=== PATIENT | male | born 1950 | race Caucasian/White ===

== ENCOUNTER 2022-03-30 12:46 | Inpatient (IN) | payer MEDICARE ==
[2022-03-31 09:50] LABS: Basophils # (Auto) 0.1 K/mm3 (0.0-0.1); Basophils % (Auto) 0.6 % (0.0-1.8); Eosinophils # (Auto) 0.1 K/mm3 (0.0-0.4); Eosinophils % (Auto) 1.5 % (0.0-4.3); Hematocrit 47.8 % (35.5-45.6); Hemoglobin 15.9 gm/dl (11.8-15.2); Lymphocytes # (Auto) 1.9 K/mm3 (1.2-5.4); Lymphocytes % (Auto) 22.6 % (13.4-35.0); Mean Corpuscular HGB Conc 33 % (32-34); Mean Corpuscular Volume 92 fl (84-94); Monocytes # (Auto) 0.6 K/mm3 (0.0-0.8); Monocytes % (Auto) 6.5 % (0.0-7.3); Platelet Count 347 K/mm3 (140-440); Red Blood Count 5.22 M/mm3 (3.65-5.03); Red Cell Distribution Width 15.6 % (13.2-15.2)
[2022-03-31 10:14] LABS: Alanine Aminotransferase 23 units/L (7-56); Albumin 4.5 g/dL (3.9-5); BUN/Creatinine Ratio 20; Blood Urea Nitrogen 20 mg/dL (9-20); Calcium 9.6 mg/dL (8.4-10.2); Chol/HDL Ratio 3.76 %; HDL Cholesterol 38 mg/dL (40-59); Hemolysis Index 10; LDL Cholesterol,Direct 83 mg/dL (50-130)
--- NOTE | 2022-03-31 11:17 | Consultation ---
History of Present Illness - Reason for Consult Consult date: 03/31/22 Medical Management Requesting physician: JUDI BURTON - History of Present Illness 72 YO Male with Vascular Dementia with Behavioral Disturbance, Cerebral Atherosclerosis, Bipolar Disorder, HTN, DM, BPH, Mild Intermittent Asthma, Schizophrenia, PTSD admitted to [facility] for psychiatric stabilization. Consult placed by Dr. Burton for medical management. Pt seen and evaluated in the recreation room. Patient denies fever, chills, chest pain, palpitation, productive cough, skin rash, recent ill contacts, or known exposure to COVID-19. No reported nursing events. Patient appears to be at baseline level of cognition and function. Past History Past Medical History: diabetes, hypertension Past Surgical History: No surgical history, Other (Reviewed) Social history: single. denies: smoking, alcohol abuse, prescription drug abuse Family history: diabetes, hypertension Medications and Allergies Allergies Allergy/AdvReac Type Severity Reaction Status Date / Time No Known Allergies Allergy Unverified 03/30/22 13:15 Home Medications Medication Instructions Recorded Confirmed Last Taken Type Cholecalciferol Vit D3 [Vitamin D3 1,000 unit PO QDAY 03/30/22 03/30/22 Unknown History 1,000 UNIT TAB] Cyanocobalamin [Vitamin B-12] 500 mcg PO DAILY 03/30/22 03/30/22 Unknown History Dapagliflozin Propanediol [Farxiga] 5 mg PO DAILY 03/30/22 03/30/22 Unknown History Divalproex Sodium [Depakote] 500 mg PO BID 03/30/22 03/30/22 Unknown History Melatonin [Melatonin 10MG TAB] 10 mg PO QHS 03/30/22 03/30/22 Unknown History Mirtazapine [Remeron 15mg TAB] 15 mg PO QHS 03/30/22 03/30/22 Unknown History Multivit-Min/Iron Fum/Folic AC 1 each PO DAILY 03/30/22 03/30/22 Unknown History [Lcayw-Vcoaqpu-Zqookmeo Tablet] Paliperidone Palmitate [Invega 156 mg IM QMONTH 03/30/22 03/30/22 Unknown History Sustenna] Paliperidone [Invega] 6 mg PO DAILY 03/30/22 03/30/22 Unknown History ProAir HFA Inhaler 90 mcg INHALATION Q8HR PRN 03/30/22 03/30/22 Unknown History Tamsulosin [Flomax] 0.4 mg PO QDAY 03/30/22 03/30/22 Unknown History lisinopriL [Lisinopril] 10 mg PO DAILY 03/30/22 03/30/22 Unknown History Review of Systems Constitutional: no weight loss, no weight gain, no fever, no chills Ears, nose, mouth and throat: no ear pain, no ear discharge, no tinnitis, no nasal discharge Cardiovascular: no chest pain, no orthopnea, no rapid/irregular heart beat Respiratory: no excessive sputum, no hemoptysis, no shortness of breath, no dyspnea on exertion Gastrointestinal: no nausea, no diarrhea, no constipation Genitourinary Male: no hematuria, no flank pain, no urinary frequency, no urinary hesitancy Rectal: no pain, no incontinence, no bleeding Musculoskeletal: no neck stiffness, no arm numbness/tingling, no shooting leg pain Integumentary: no rash, no redness, no jaundice Neurological: no head injury, no paralysis, no parathesias, no numbness, no seizures, no syncope Psychiatric: sleep disturbances, irritability, mood swings Endocrine: no cold intolerance, no polyphagia, no excessive thirst, no polyuria Hematologic/Lymphatic: no easy bruising, no lymphedema Allergic/Immunologic: no urticaria, no allergic rhinitis, no persistent infections Exam - Constitutional Vitals: Temp Pulse Resp BP Pulse Ox 97.9 F 84 16 113/80 95 03/31/22 10:00 03/31/22 10:00 03/31/22 10:00 03/31/22 10:00 03/31/22 10:00 General appearance: Present: obese - EENT Eyes: Present: PERRL ENT: hearing intact, clear oral mucosa - Neck Neck: Present: supple, normal ROM - Respiratory Respiratory effort: normal Respiratory: bilateral: CTA - Cardiovascular Heart Sounds: Present: S1 & S2. Absent: rub, click - Extremities Extremities: pulses symmetrical, No edema Peripheral Pulses: within normal limits - Abdominal General gastrointestinal: Present: soft, non-tender, non-distended, normal bowel sounds Male genitourinary: Present: normal - Integumentary Integumentary: Present: clear, warm, dry - Musculoskeletal Musculoskeletal: gait normal, strength equal bilaterally - Psychiatric Psychiatric: appropriate mood/affect, intact judgment & insight - Neurologic Neurologic: CNII-XII intact, moves all extremities Results - Labs CBC & Chem 7: 03/30/22 Unknown 03/30/22 Unknown Labs: Abnormal lab results 03/30/22 03/30/22 03/30/22 Range/Units 19:27 Unknown Unknown RBC 5.22 H (3.65-5.03) M/mm3 Hgb 15.9 H (11.8-15.2) gm/dl Hct 47.8 H (35.5-45.6) % RDW 15.6 H (13.2-15.2) % Glucose 302 H (75-100) mg/dL POC Glucose 229 H (70-105) mg/dL Hemoglobin A1c (4-6) % Triglycerides 204 H (2-149) mg/dL HDL Cholesterol 38 L (40-59) mg/dL 03/30/22 03/31/22 Range/Units Unknown 07:31 RBC (3.65-5.03) M/mm3 Hgb (11.8-15.2) gm/dl Hct (35.5-45.6) % RDW (13.2-15.2) % Glucose (75-100) mg/dL POC Glucose 155 H (70-105) mg/dL Hemoglobin A1c 7.8 H (4-6) % Triglycerides (2-149) mg/dL HDL Cholesterol (40-59) mg/dL Assessment and Plan - Patient Problems (1) Vascular dementia with behavioral disturbance Current Visit: Yes Status: Acute Plan to address problem: Verbal for prompting verbal redirection, benzodiazepine therapy as clinically indicated (2) Cerebral atherosclerosis Current Visit: Yes Status: Acute Plan to address problem: Risk factor reduction, antiplatelet therapy as clinically indicated (3) Hypertension Current Visit: Yes Status: Acute Qualifiers: Hypertension type: primary hypertension Qualified Code(s): I10 - Essential (primary) hypertension Plan to address problem: Monitor blood pressure every shift, continue medical management (4) Diabetes Current Visit: Yes Status: Acute Plan to address problem: Consistent carbohydrate diet, Accu-Chek, insulin protocol, hypoglycemia protocol. (5) BPH (benign prostatic hyperplasia) Current Visit: Yes Status: Acute Plan to address problem: Continue medical management, supportive care. Outpatient urology follow-up. (6) Asthma Current Visit: Yes Status: Acute Qualifiers: Asthma severity: mild Asthma persistence: intermittent Plan to address problem: Bronchodilator therapy as clinically indicated, supportive care. (7) PTSD (post-traumatic stress disorder) Current Visit: Yes Status: Acute Plan to address problem: Continue medical management, supportive care. (8) Schizophrenia Current Visit: Yes Status: Acute Plan to address problem: Continue medical management, supportive care. (9) Bipolar disorder Current Visit: Yes Status: Acute Plan to address problem: Cognitive behavioral therapy, continue medical management, supportive care. (10) Preventative health care Current Visit: Yes Status: Acute Plan to address problem: Patient counseled regarding risk factor reduction, increase physical activity discharge, +30 minutes. (11) Advance care planning Current Visit: Yes Status: Acute Plan to address problem: Disease education conducted, care plan discussed, diagnoses discussed, prognosis discussed. Patient acknowledges understanding and agreement with care plan, +30 minutes.
--- NOTE | 2022-03-31 11:21 | History and Physical Report ---
GP History & Physical - History of Present Illness Date of admission: 03/30/22 Date of Examination: 03/31/22 Reason for Admission: Danger to self, Failure of Outpatient Treatment, Severe anxiety/depression History of Present Illness: The patient was seen today. He was admitted to [facility] [place] after becoming angry about tea. During my evaluation of the patient he is calm and cooperative. He is a/o x 3. When asking the patient about why he was admitted, he says "they gave me tea without sugar, and gave me hot water to take my pills." He says "I became upset and started yelling." He denies trying to hurt anyone. The patient also denies suicidal thoughts. He could not recall any medication that he's on. He says "I take a lot of meds." PAST PSYCHIATRIC HISTORY: Diagnoses: Bipolar Disorder Suicide attempts or Self-harm behavior: Denies Prior psychiatric hospitalizations: Denies Substance Abuse history: Denies Previous psychiatric medications tried: Could not recall Outpatient treatment: Denies PAST MEDICAL HISTORY: HTN, DM Family Psychiatric History: None reported or documented SOCIAL HISTORY Marital Status: Living Arrangements: senior care Employment Status: Retired Access to guns/weapons: Denies Education: History of Abuse:Denies Legal History: Denies REVIEW OF SYSTEMS Constitutional: Negative for weight loss ENT: Negative for stridor Respiratory: Negative for cough or hemoptysis All other systems reviewed and are negative MENTAL STATUS EXAMINATION General Appearance and Behavior: Age appropriate, wearing appropriate clothes, cooperative, polite with questioning, good eye contact Cooperation: cooperative Psychomotor Behavior: Psychomotor normal Mood: okay Affect and affective range: congruent with stated affect Thought Process: goal directed Thought Content: None Speech: Normal volume, Regular rate and rhythm Suicidal Ideation: Denies Homicidal Ideation: Denies Hallucination: Denies Delusions: None elicited Impulse Control: Limited Insight and Judgment: Limited Memory: Intact Attention: attentive Orientation: Alert and oriented Diagnoses: Bipolar Disorder Treatment Plan Patient admitted for inpatient psychiatric evaluation, medication adjustment and close monitoring The patient's behavior, mood, sleep and appetite will be closely monitored. Patient enrolled in individual and group therapeutic sessions and encouraged to attend. Patient provided with a safe and structured environment. Patient's physical health needs will be addressed by the Hospitalist. Hospitalist Consulted Labs including CBC, CMP, Lipid profile and Hemoglobin A1C levels ordered for baseline reference Social Assessment will be completed and the Postal Service Window Clerk will work with patient and family to ensure a suitable and safe disposition Medication adjustment will be made as clinically indicated Restarted home meds Usual Wellness Sikh/Preservation The patient agreed on the treatment plan, understood the risk, benefit, alternative treatment, potential consequence of no treatment, and gave informed consent. Estimated days: 7 Post hospital care: primary care provider, psychiatric provider Case staffed with Dr. Butler Legal Status: Voluntary Reaction to Hospitalization: Accepting Medications and Allergies Allergies Allergy/AdvReac Type Severity Reaction Status Date / Time No Known Allergies Allergy Unverified 03/30/22 13:15 Home Medications Medication Instructions Recorded Confirmed Last Taken Type Cholecalciferol Vit D3 [Vitamin D3 1,000 unit PO QDAY 03/30/22 03/30/22 Unknown History 1,000 UNIT TAB] Cyanocobalamin [Vitamin B-12] 500 mcg PO DAILY 03/30/22 03/30/22 Unknown History Dapagliflozin Propanediol [Farxiga] 5 mg PO DAILY 03/30/22 03/30/22 Unknown History Divalproex Sodium [Depakote] 500 mg PO BID 03/30/22 03/30/22 Unknown History Melatonin [Melatonin 10MG TAB] 10 mg PO QHS 03/30/22 03/30/22 Unknown History Mirtazapine [Remeron 15mg TAB] 15 mg PO QHS 03/30/22 03/30/22 Unknown History Multivit-Min/Iron Fum/Folic AC 1 each PO DAILY 03/30/22 03/30/22 Unknown History [Zeyso-Ibhngaw-Zamkrohy Tablet] Paliperidone Palmitate [Invega 156 mg IM QMONTH 03/30/22 03/30/22 Unknown History Sustenna] Paliperidone [Invega] 6 mg PO DAILY 03/30/22 03/30/22 Unknown History ProAir HFA Inhaler 90 mcg INHALATION Q8HR PRN 03/30/22 03/30/22 Unknown History Tamsulosin [Flomax] 0.4 mg PO QDAY 03/30/22 03/30/22 Unknown History lisinopriL [Lisinopril] 10 mg PO DAILY 03/30/22 03/30/22 Unknown History Results - Results Labs/Vitals: Laboratory Last Values WBC 8.6 K/mm3 (4.5-11.0) 03/30/22 Unknown RBC 5.22 M/mm3 (3.65-5.03) H 03/30/22 Unknown Hgb 15.9 gm/dl (11.8-15.2) H 03/30/22 Unknown Hct 47.8 % (35.5-45.6) H 03/30/22 Unknown MCV 92 fl (84-94) 03/30/22 Unknown MCH 30 pg (28-32) 03/30/22 Unknown MCHC 33 % (32-34) 03/30/22 Unknown RDW 15.6 % (13.2-15.2) H 03/30/22 Unknown Plt Count 347 K/mm3 (140-440) 03/30/22 Unknown Lymph % (Auto) 22.6 % (13.4-35.0) 03/30/22 Unknown Wolfe % (Auto) 6.5 % (0.0-7.3) 03/30/22 Unknown Eos % (Auto) 1.5 % (0.0-4.3) 03/30/22 Unknown Baso % (Auto) 0.6 % (0.0-1.8) 03/30/22 Unknown Lymph # (Auto) 1.9 K/mm3 (1.2-5.4) 03/30/22 Unknown Wolfe # (Auto) 0.6 K/mm3 (0.0-0.8) 03/30/22 Unknown Eos # (Auto) 0.1 K/mm3 (0.0-0.4) 03/30/22 Unknown Baso # (Auto) 0.1 K/mm3 (0.0-0.1) 03/30/22 Unknown Seg Neutrophils % 68.8 % (40.0-70.0) 03/30/22 Unknown Seg Neutrophils # 5.9 K/mm3 (1.8-7.7) 03/30/22 Unknown Sodium 137 mmol/L (137-145) 03/30/22 Unknown Potassium 4.7 mmol/L (3.6-5.0) 03/30/22 Unknown Chloride 99.5 mmol/L (98-107) 03/30/22 Unknown Carbon Dioxide 23 mmol/L (22-30) 03/30/22 Unknown Anion Gap 19 mmol/L 03/30/22 Unknown BUN 20 mg/dL (9-20) 03/30/22 Unknown Creatinine 1.0 mg/dL (0.8-1.3) 03/30/22 Unknown Estimated GFR > 60 ml/min 03/30/22 Unknown BUN/Creatinine Ratio 20 % 03/30/22 Unknown Glucose 302 mg/dL (75-100) H 03/30/22 Unknown POC Glucose 155 mg/dL (70-105) H 03/31/22 07:31 Hemoglobin A1c 7.8 % (4-6) H 03/30/22 Unknown Calcium 9.6 mg/dL (8.4-10.2) 03/30/22 Unknown Total Bilirubin 0.40 mg/dL (0.1-1.2) 03/30/22 Unknown AST 18 units/L (5-40) 03/30/22 Unknown ALT 23 units/L (7-56) 03/30/22 Unknown Alkaline Phosphatase 117 units/L (35-129) 03/30/22 Unknown Total Protein 7.4 g/dL (6.3-8.2) 03/30/22 Unknown Albumin 4.5 g/dL (3.9-5) 03/30/22 Unknown Albumin/Globulin Ratio 1.6 % 03/30/22 Unknown Triglycerides 204 mg/dL (2-149) H 03/30/22 Unknown Cholesterol 143 mg/dL (50-199) 03/30/22 Unknown LDL Cholesterol Direct 83 mg/dL (50-130) 03/30/22 Unknown HDL Cholesterol 38 mg/dL (40-59) L 03/30/22 Unknown Cholesterol/HDL Ratio 3.76 % 03/30/22 Unknown TSH 1.930 mlU/mL (0.270-4.200) 03/30/22 Unknown Last Vital Signs Temp 97.9 F 03/31/22 10:00 Pulse 84 03/31/22 10:00 Resp 16 03/31/22 10:00 BP 113/80 03/31/22 10:00 Pulse Ox 95 03/31/22 10:00 Physical Examination - Constitutional Vitals: Vital Signs Temp Pulse Resp BP Pulse Ox 97.9 F 84 16 113/80 95 03/31/22 10:00 03/31/22 10:00 03/31/22 10:00 03/31/22 10:00 03/31/22 10:00 Temperature -Last 24 Hours Temperature 97.9 F Temperature 98.7 F Temperature 98.7 F Temperature 97.9 F Mental Status Exam - Vital signs Last Vital Signs Temp 97.9 F 03/31/22 10:00 Pulse 84 03/31/22 10:00 Resp 16 03/31/22 10:00 BP 113/80 03/31/22 10:00 Pulse Ox 95 03/31/22 10:00 Physician Certification - Certification Statement Physician Certification Statement: This is an acknowledgement statement that ESSIE WARREN is a 72 year old M who requires inpatient psychiatric admission for treatment which could reasonably be expected to improve the patient's condition for Estimated period of time patient will need to remain in the hospital: [ ] Plan for post-hospital care: [ ]
[2022-03-31] MEDS ORDERED: PROAIR INHALATION PRN (11:25)
[2022-03-31] MEDS ORDERED: PALIPERIDONE 6 MG PO SCH (11:30)
[2022-03-31] MEDS ORDERED: ALBUTEROL 2.5 MG/3 ML NEBU IH PRN (11:40)
[2022-03-31] MEDS: LISINOPRIL 10 MG TAB PO SCH (13:52)
[2022-03-31] MEDS: TAMSULOSIN 0.4 MG CAP PO SCH (13:52)
[2022-03-31] MEDS: CHOLECALCIFEROL (VIT D3) 1000 UNIT (25 mcg) TAB PO SCH (13:53)
[2022-03-31] MEDS: MIRTAZAPINE 15 MG TAB PO SCH (21:13)
[2022-03-31] MEDS: MELATONIN 5 MG TAB PO SCH (21:14)
[2022-03-31] MEDS: DIVALPROEX DR 500 MG TAB PO SCH (21:14)
[2022-03-31] MEDS ORDERED: NON-FORMULARY EACH (Melatonin [Melatonin 10mg Tab] 10 MG Tablet) PO SCH (22:00)
--- NOTE | 2022-04-01 09:15 | Progress Note ---
Subjective Date of service: 04/01/22 Principal diagnosis: Bipolar Disorder Subjective Comment: The patient was seen today. He is sitting in the dayroom. He is calm and cooperative. He is pleasant. He says he feels calm and relaxed. The patient says he slept well and his appetite is good. He denies SI/HI or hallucinations of any kind. REVIEW OF SYSTEMS Constitutional: Negative for weight loss ENT: Negative for stridor Respiratory: Negative for cough or hemoptysis All other systems reviewed and are negative MENTAL STATUS EXAMINATION General Appearance and Behavior: Age appropriate, wearing appropriate clothes, cooperative, polite with questioning, good eye contact Cooperation: cooperative Psychomotor Behavior: Psychomotor normal Mood: okay Affect and affective range: congruent with stated affect Thought Process: goal directed Thought Content: None Speech: Normal volume, Regular rate and rhythm Suicidal Ideation: Denies Homicidal Ideation: Denies Hallucination: Denies Delusions: None elicited Impulse Control: Limited Insight and Judgment: Limited Memory: Intact Attention: attentive Orientation: Alert and oriented Diagnoses: Bipolar Disorder Treatment Plan Patient admitted for inpatient psychiatric evaluation, medication adjustment and close monitoring The patient's behavior, mood, sleep and appetite will be closely monitored. Patient enrolled in individual and group therapeutic sessions and encouraged to attend. Patient provided with a safe and structured environment. Patient's physical health needs will be addressed by the Hospitalist. Hospitalist Consulted Labs including CBC, CMP, Lipid profile and Hemoglobin A1C levels ordered for baseline reference Social Assessment will be completed and the Protection Manager will work with patient and family to ensure a suitable and safe disposition Medication adjustment will be made as clinically indicated Continue current regimen Usual Wellness Adventism/Preservation The patient agreed on the treatment plan, understood the risk, benefit, alternative treatment, potential consequence of no treatment, and gave informed consent. Estimated days: 7 Post hospital care: primary care provider, psychiatric provider Case staffed with Dr. Butler Medications and Allergies Allergies Allergy/AdvReac Type Severity Reaction Status Date / Time No Known Allergies Allergy Unverified 03/30/22 13:15 Home Medications Medication Instructions Recorded Confirmed Last Taken Type Cholecalciferol Vit D3 [Vitamin D3 1,000 unit PO QDAY 03/30/22 03/30/22 Unknown History 1,000 UNIT TAB] Cyanocobalamin [Vitamin B-12] 500 mcg PO DAILY 03/30/22 03/30/22 Unknown History Dapagliflozin Propanediol [Farxiga] 5 mg PO DAILY 03/30/22 03/30/22 Unknown History Divalproex Sodium [Depakote] 500 mg PO BID 03/30/22 03/30/22 Unknown History Melatonin [Melatonin 10MG TAB] 10 mg PO QHS 03/30/22 03/30/22 Unknown History Mirtazapine [Remeron 15mg TAB] 15 mg PO QHS 03/30/22 03/30/22 Unknown History Multivit-Min/Iron Fum/Folic AC 1 each PO DAILY 03/30/22 03/30/22 Unknown History [Kwsxs-Bubpetj-Gakjvkxh Tablet] Paliperidone Palmitate [Invega 156 mg IM QMONTH 03/30/22 03/30/22 Unknown History Sustenna] Paliperidone [Invega] 6 mg PO DAILY 03/30/22 03/30/22 Unknown History ProAir HFA Inhaler 90 mcg INHALATION Q8HR PRN 03/30/22 03/30/22 Unknown History Tamsulosin [Flomax] 0.4 mg PO QDAY 03/30/22 03/30/22 Unknown History lisinopriL [Lisinopril] 10 mg PO DAILY 03/30/22 03/30/22 Unknown History Active Meds: Active Medications Albuterol (Albuterol 2.5 Mg/3 Ml Nebu) 2.5 mg IH Q4HRT PRN PRN Reason: Shortness Of Breath Cholecalciferol (Cholecalciferol (Vit D3) 1000 Unit (25 Mcg) Tab) 1,000 unit PO QDAY [facility] Last Admin: 03/31/22 13:53 Dose: 1,000 unit Cyanocobalamin (Cyanocobalamin (Vit B-12) 1000 Mcg Tab) 500 mcg PO DAILY [facility] Divalproex Sodium (Divalproex Dr 500 Mg Tab) 500 mg PO BID [facility] Last Admin: 03/31/22 21:14 Dose: 500 mg Lisinopril (Lisinopril 10 Mg Tab) 10 mg PO DAILY [facility] Last Admin: 03/31/22 13:52 Dose: 10 mg Melatonin (Melatonin 5 Mg Tab) 10 mg PO QHS [facility] Last Admin: 03/31/22 21:14 Dose: 10 mg Mirtazapine (Mirtazapine 15 Mg Tab) 15 mg PO QHS [facility] Last Admin: 03/31/22 21:13 Dose: 15 mg Multivitamins/Minerals (Multivitamins,Ther W-Minerals Tab) 1 each PO QDAY [facility] Paliperidone (Paliperidone Er 3 Mg Tab) 6 mg PO QDAY [facility] Tamsulosin HCl (Tamsulosin 0.4 Mg Cap) 0.4 mg PO QDAY [facility] Last Admin: 03/31/22 13:52 Dose: 0.4 mg Results - Results Labs/Vitals: Laboratory Last Values WBC 8.6 K/mm3 (4.5-11.0) 03/30/22 Unknown RBC 5.22 M/mm3 (3.65-5.03) H 03/30/22 Unknown Hgb 15.9 gm/dl (11.8-15.2) H 03/30/22 Unknown Hct 47.8 % (35.5-45.6) H 03/30/22 Unknown MCV 92 fl (84-94) 03/30/22 Unknown MCH 30 pg (28-32) 03/30/22 Unknown MCHC 33 % (32-34) 03/30/22 Unknown RDW 15.6 % (13.2-15.2) H 03/30/22 Unknown Plt Count 347 K/mm3 (140-440) 03/30/22 Unknown Lymph % (Auto) 22.6 % (13.4-35.0) 03/30/22 Unknown Cass % (Auto) 6.5 % (0.0-7.3) 03/30/22 Unknown Eos % (Auto) 1.5 % (0.0-4.3) 03/30/22 Unknown Baso % (Auto) 0.6 % (0.0-1.8) 03/30/22 Unknown Lymph # (Auto) 1.9 K/mm3 (1.2-5.4) 03/30/22 Unknown Cass # (Auto) 0.6 K/mm3 (0.0-0.8) 03/30/22 Unknown Eos # (Auto) 0.1 K/mm3 (0.0-0.4) 03/30/22 Unknown Baso # (Auto) 0.1 K/mm3 (0.0-0.1) 03/30/22 Unknown Seg Neutrophils % 68.8 % (40.0-70.0) 03/30/22 Unknown Seg Neutrophils # 5.9 K/mm3 (1.8-7.7) 03/30/22 Unknown Sodium 137 mmol/L (137-145) 03/30/22 Unknown Potassium 4.7 mmol/L (3.6-5.0) 03/30/22 Unknown Chloride 99.5 mmol/L (98-107) 03/30/22 Unknown Carbon Dioxide 23 mmol/L (22-30) 03/30/22 Unknown Anion Gap 19 mmol/L 03/30/22 Unknown BUN 20 mg/dL (9-20) 03/30/22 Unknown Creatinine 1.0 mg/dL (0.8-1.3) 03/30/22 Unknown Estimated GFR > 60 ml/min 03/30/22 Unknown BUN/Creatinine Ratio 20 % 03/30/22 Unknown Glucose 302 mg/dL (75-100) H 03/30/22 Unknown POC Glucose 224 mg/dL (70-105) H 03/31/22 19:03 Hemoglobin A1c 7.8 % (4-6) H 03/30/22 Unknown Calcium 9.6 mg/dL (8.4-10.2) 03/30/22 Unknown Total Bilirubin 0.40 mg/dL (0.1-1.2) 03/30/22 Unknown AST 18 units/L (5-40) 03/30/22 Unknown ALT 23 units/L (7-56) 03/30/22 Unknown Alkaline Phosphatase 117 units/L (35-129) 03/30/22 Unknown Total Protein 7.4 g/dL (6.3-8.2) 03/30/22 Unknown Albumin 4.5 g/dL (3.9-5) 03/30/22 Unknown Albumin/Globulin Ratio 1.6 % 03/30/22 Unknown Triglycerides 204 mg/dL (2-149) H 03/30/22 Unknown Cholesterol 143 mg/dL (50-199) 03/30/22 Unknown LDL Cholesterol Direct 83 mg/dL (50-130) 03/30/22 Unknown HDL Cholesterol 38 mg/dL (40-59) L 03/30/22 Unknown Cholesterol/HDL Ratio 3.76 % 03/30/22 Unknown TSH 1.930 mlU/mL (0.270-4.200) 03/30/22 Unknown Last Vital Signs Temp 98.6 F 03/31/22 22:00 Pulse 85 08/31/22 22:00 Resp 18 03/31/22 22:00 BP 100/66 03/31/22 22:00 Pulse Ox 95 03/31/22 10:00
[2022-04-01] MEDS: PALIPERIDONE ER 3 MG TAB PO SCH (09:50)
[2022-04-01] MEDS: DIVALPROEX DR 500 MG TAB PO SCH ×2 (09:51→21:20)
[2022-04-01] MEDS: LISINOPRIL 10 MG TAB PO SCH (09:53)
[2022-04-01] MEDS: TAMSULOSIN 0.4 MG CAP PO SCH (09:53)
[2022-04-01] MEDS: CYANOCOBALAMIN (VIT B-12) 1000 MCG TAB PO SCH (09:54)
[2022-04-01] MEDS: CHOLECALCIFEROL (VIT D3) 1000 UNIT (25 mcg) TAB PO SCH (09:54)
[2022-04-01] MEDS: MULTIVITAMINS,THER W-MINERALS TAB PO SCH (09:55)
[2022-04-01] MEDS: MELATONIN 5 MG TAB PO SCH (21:20)
[2022-04-01] MEDS: MIRTAZAPINE 15 MG TAB PO SCH (21:20)
--- NOTE | 2022-04-02 08:25 | Progress Note ---
Subjective Date of service: 04/02/22 Principal diagnosis: Bipolar Disorder Subjective Comment: 04/02: The patient was seen today. He states he is doing alright. He reports sleep and appetite as good. He denies depression " I feel good." He denies SI/HI and hallucinations. 04/01: The patient was seen today. He is sitting in the dayroom. He is calm and cooperative. He is pleasant. He says he feels calm and relaxed. The patient says he slept well and his appetite is good. He denies SI/HI or hallucinations of any kind. REVIEW OF SYSTEMS Constitutional: Negative for weight loss ENT: Negative for stridor Respiratory: Negative for cough or hemoptysis All other systems reviewed and are negative MENTAL STATUS EXAMINATION General Appearance and Behavior: Age appropriate, wearing appropriate clothes, cooperative, polite with questioning, good eye contact Cooperation: cooperative Psychomotor Behavior: Psychomotor normal Mood: "alright" Affect and affective range: congruent with stated affect Thought Process: goal directed Thought Content: reality oriented Speech: Normal volume, Regular rate and rhythm Suicidal Ideation: Denies Homicidal Ideation: Denies Hallucination: Denies Delusions: None elicited Impulse Control: Limited Insight and Judgment: Limited Memory: Intact Attention: attentive Orientation: Alert and oriented Diagnoses: Bipolar Disorder Treatment Plan Patient admitted for inpatient psychiatric evaluation, medication adjustment and close monitoring The patient's behavior, mood, sleep and appetite will be closely monitored. Patient enrolled in individual and group therapeutic sessions and encouraged to attend. Patient provided with a safe and structured environment. Patient's physical health needs will be addressed by the Hospitalist. Hospitalist Consulted Labs including CBC, CMP, Lipid profile and Hemoglobin A1C levels ordered for baseline reference Social Assessment will be completed and the [employer] will work with patient and family to ensure a suitable and safe disposition Medication adjustment will be made as clinically indicated Continue current regimen Usual Wellness Christianity/Preservation The patient agreed on the treatment plan, understood the risk, benefit, alternative treatment, potential consequence of no treatment, and gave informed consent. Estimated days: 7 Post hospital care: primary care provider, psychiatric provider Case staffed with Dr. Butler Medications and Allergies Medications and Allergies Allergies Allergy/AdvReac Type Severity Reaction Status Date / Time No Known Allergies Allergy Unverified 03/30/22 13:15 Home Medications Medication Instructions Recorded Confirmed Last Taken Type Cholecalciferol Vit D3 [Vitamin D3 1,000 unit PO QDAY 03/30/22 03/30/22 Unknown History 1,000 UNIT TAB] Cyanocobalamin [Vitamin B-12] 500 mcg PO DAILY 03/30/22 03/30/22 Unknown History Dapagliflozin Propanediol [Farxiga] 5 mg PO DAILY 03/30/22 03/30/22 Unknown History Divalproex Sodium [Depakote] 500 mg PO BID 03/30/22 03/30/22 Unknown History Melatonin [Melatonin 10MG TAB] 10 mg PO QHS 03/30/22 03/30/22 Unknown History Mirtazapine [Remeron 15mg TAB] 15 mg PO QHS 03/30/22 03/30/22 Unknown History Multivit-Min/Iron Fum/Folic AC 1 each PO DAILY 03/30/22 03/30/22 Unknown History [[id number]-Mvxsnptv Tablet] Paliperidone Palmitate [Invega 156 mg IM QMONTH 03/30/22 03/30/22 Unknown His tory Sustenna] Paliperidone [Invega] 6 mg PO DAILY 03/30/22 03/30/22 Unknown History ProAir HFA Inhaler 90 mcg INHALATION Q8HR PRN 03/30/22 03/30/22 Unknown History Tamsulosin [Flomax] 0.4 mg PO QDAY 03/30/22 03/30/22 Unknown History lisinopriL [Lisinopril] 10 mg PO DAILY 03/30/22 03/30/22 Unknown History Active Meds: Active Medications Albuterol (Albuterol 2.5 Mg/3 Ml Nebu) 2.5 mg IH Q4HRT PRN PRN Reason: Shortness Of Breath Cholecalciferol (Cholecalciferol (Vit D3) 1000 Unit (25 Mcg) Tab) 1,000 unit PO QDAY [facility] Last Admin: 04/01/22 09:54 Dose: 1,000 unit Cyanocobalamin (Cyanocobalamin (Vit B-12) 1000 Mcg Tab) 500 mcg PO DAILY [facility] Last Admin: 04/01/22 09:54 Dose: 500 mcg Divalproex Sodium (Divalproex Dr 500 Mg Tab) 500 mg PO BID [facility] Last Admin: 04/01/22 21:20 Dose: 500 mg Lisinopril (Lisinopril 10 Mg Tab) 10 mg PO DAILY [facility] Last Admin: 04/01/22 09:53 Dose: Not Given Melatonin (Melatonin 5 Mg Tab) 10 mg PO QHS [facility] Last Admin: 04/01/22 21:20 Dose: 10 mg Mirtazapine (Mirtazapine 15 Mg Tab) 15 mg PO QHS [facility] Last Admin: 04/01/22 21:20 Dose: 15 mg Multivitamins/Minerals (Multivitamins,Ther W-Minerals Tab) 1 each PO QDAY [facility] Last Admin: 04/01/22 09:55 Dose: 1 each Paliperidone (Paliperidone Er 3 Mg Tab) 6 mg PO QDAY [facility] Last Admin: 04/01/22 09:50 Dose: 6 mg Tamsulosin HCl (Tamsulosin 0.4 Mg Cap) 0.4 mg PO QDAY [facility] Last Admin: 04/01/22 09:53 Dose: 0.4 mg Results - Results Labs/Vitals: Laboratory Last Values WBC 8.6 K/mm3 (4.5-11.0) 03/30/22 Unknown RBC 5.22 M/mm3 (3.65-5.03) H 03/30/22 Unknown Hgb 15.9 gm/dl (11.8-15.2) H 03/30/22 Unknown Hct 47.8 % (35.5-45.6) H 03/30/22 Unknown MCV 92 fl (84-94) 03/30/22 Unknown MCH 30 pg (28-32) 03/30/22 Unknown MCHC 33 % (32-34) 03/30/22 Unknown RDW 15.6 % (13.2-15.2) H 03/30/22 Unknown Plt Count 347 K/mm3 (140-440) 03/30/22 Unknown Lymph % (Auto) 22.6 % (13.4-35.0) 03/30/22 Unknown [place] % (Auto) 6.5 % (0.0-7.3) 03/30/22 Unknown Eos % (Auto) 1.5 % (0.0-4.3) 03/30/22 Unknown Baso % (Auto) 0.6 % (0.0-1.8) 03/30/22 Unknown Lymph # (Auto) 1.9 K/mm3 (1.2-5.4) 03/30/22 Unknown [place] # (Auto) 0.6 K/mm3 (0.0-0.8) 03/30/22 Unknown Eos # (Auto) 0.1 K/mm3 (0.0-0.4) 03/30/22 Unknown Baso # (Auto) 0.1 K/mm3 (0.0-0.1) 03/30/22 Unknown Seg Neutrophils % 68.8 % (40.0-70.0) 03/30/22 Unknown Seg Neutrophils # 5.9 K/mm3 (1.8-7.7) 03/30/22 Unknown Sodium 137 mmol/L (137-145) 03/30/22 Unknown Potassium 4.7 mmol/L (3.6-5.0) 03/30/22 Unknown Chloride 99.5 mmol/L (98-107) 03/30/22 Unknown Carbon Dioxide 23 mmol/L (22-30) 03/30/22 Unknown Anion Gap 19 mmol/L 03/30/22 Unknown BUN 20 mg/dL (9-20) 03/30/22 Unknown Creatinine 1.0 mg/dL (0.8-1.3) 03/30/22 Unknown Estimated GFR > 60 ml/min 03/30/22 Unknown BUN/Creatinine Ratio 20 % 03/30/22 Unknown Glucose 302 mg/dL (75-100) H 03/30/22 Unknown POC Glucose 217 mg/dL (70-105) H 04/01/22 19:44 Hemoglobin A1c 7.8 % (4-6) H 03/30/22 Unknown Calcium 9.6 mg/dL (8.4-10.2) 03/30/22 Unknown Total Bilirubin 0.40 mg/dL (0.1-1.2) 03/30/22 Unknown AST 18 units/L (5-40) 03/30/22 Unknown ALT 23 units/L (7-56) 03/30/22 Unknown Alkaline Phosphatase 117 units/L (35-129) 03/30/22 Unknown Total Protein 7.4 g/dL (6.3-8.2) 03/30/22 Unknown Albumin 4.5 g/dL (3.9-5) 03/30/22 Unknown Albumin/Globulin Ratio 1.6 % 03/30/22 Unknown Triglycerides 204 mg/dL (2-149) H 03/30/22 Unknown Cholesterol 143 mg/dL (50-199) 03/30/22 Unknown LDL Cholesterol Direct 83 mg/dL (50-130) 03/30/22 Unknown HDL Cholesterol 38 mg/dL (40-59) L 03/30/22 Unknown Cholesterol/HDL Ratio 3.76 % 03/30/22 Unknown TSH 1.930 mlU/mL (0.270-4.200) 03/30/22 Unknown Last Vital Signs Temp 97.7 F 04/01/22 22:00 Pulse 74 04/01/22 22:00 Resp 18 04/01/22 22:00 BP 103/62 04/01/22 22:00 Pulse Ox 95 04/01/22 22:00
[2022-04-02] MEDS: CHOLECALCIFEROL (VIT D3) 1000 UNIT (25 mcg) TAB PO SCH (12:00)
[2022-04-02] MEDS: TAMSULOSIN 0.4 MG CAP PO SCH (12:00)
[2022-04-02] MEDS: CYANOCOBALAMIN (VIT B-12) 1000 MCG TAB PO SCH (12:01)
[2022-04-02] MEDS: MULTIVITAMINS,THER W-MINERALS TAB PO SCH (12:01)
[2022-04-02] MEDS: DIVALPROEX DR 500 MG TAB PO SCH ×2 (12:01→21:15)
[2022-04-02] MEDS: PALIPERIDONE ER 3 MG TAB PO SCH (12:02)
[2022-04-02] MEDS: LISINOPRIL 10 MG TAB PO SCH (12:04)
[2022-04-02] MEDS: MIRTAZAPINE 15 MG TAB PO SCH (21:16)
[2022-04-02] MEDS: MELATONIN 5 MG TAB PO SCH (21:16)
--- NOTE | 2022-04-03 09:42 | Progress Note ---
Subjective Date of service: 04/03/22 Principal diagnosis: Bipolar Disorder Subjective Comment: 04/03: The patient was seen today. he states mood is good. He reports sleep and appetite as good. He denies depression. He denies SI/HI and hallucinations. 04/02: The patient was seen today. He states he is doing alright. He reports sleep and appetite as good. He denies depression " I feel good." He denies SI/HI and hallucinations. 04/01: The patient was seen today. He is sitting in the dayroom. He is calm and cooperative. He is pleasant. He says he feels calm and relaxed. The patient says he slept well and his appetite is good. He denies SI/HI or hallucinations of any kind. REVIEW OF SYSTEMS Constitutional: Negative for weight loss ENT: Negative for stridor Respiratory: Negative for cough or hemoptysis All other systems reviewed and are negative MENTAL STATUS EXAMINATION General Appearance and Behavior: Age appropriate, wearing appropriate clothes, cooperative, polite with questioning, good eye contact Cooperation: cooperative Psychomotor Behavior: Psychomotor normal Mood: "alright" Affect and affective range: congruent with stated affect Thought Process: goal directed Thought Content: reality oriented Speech: Normal volume, Regular rate and rhythm Suicidal Ideation: Denies Homicidal Ideation: Denies Hallucination: Denies Delusions: None elicited Impulse Control: Limited Insight and Judgment: Limited Memory: Intact Attention: attentive Orientation: Alert and oriented Diagnoses: Bipolar Disorder Treatment Plan Patient admitted for inpatient psychiatric evaluation, medication adjustment and close monitoring The patient's behavior, mood, sleep and appetite will be closely monitored. Patient enrolled in individual and group therapeutic sessions and encouraged to attend. Patient provided with a safe and structured environment. Patient's physical health needs will be addressed by the Hospitalist. Hospitalist Consulted Labs including CBC, CMP, Lipid profile and Hemoglobin A1C levels ordered for baseline reference Social Assessment will be completed and the [place] Supervisor will work with patient and family to ensure a suitable and safe disposition Medication adjustment will be made as clinically indicated Continue current regimen Usual Wellness Amish/Preservation The patient agreed on the treatment plan, understood the risk, benefit, alternative treatment, potential consequence of no treatment, and gave informed consent. Estimated days: 7 Post hospital care: primary care provider, psychiatric provider Case staffed with Dr. Butler Medications and Allergies Medications and Allergies Allergies Allergy/AdvReac Type Severity Reaction Status Date / Time No Known Allergies Allergy Unverified 03/30/22 13:15 Home Medications Medication Instructions Recorded Confirmed Last Taken Type Cholecalciferol Vit D3 [Vitamin D3 1,000 unit PO QDAY 03/30/22 03/30/22 Unknown History 1,000 UNIT TAB] Cyanocobalamin [Vitamin B-12] 500 mcg PO DAILY 03/30/22 03/30/22 Unknown History Dapagliflozin Propanediol [Farxiga] 5 mg PO DAILY 03/30/22 03/30/22 Unknown History Divalproex Sodium [Depakote] 500 mg PO BID 03/30/22 03/30/22 Unknown History Melatonin [Melatonin 10MG TAB] 10 mg PO QHS 03/30/22 03/30/22 Unknown History Mirtazapine [Remeron 15mg TAB] 15 mg PO QHS 03/30/22 03/30/22 Unknown History Multivit-Min/Iron Fum/Folic AC 1 each PO DAILY 03/30/22 03/30/22 Unknown History [Dhswq-Zvicesp-Dgehmizv Tablet] Paliperidone Palmitate [Invega 156 mg IM QMONTH 03/30/22 03/30/22 Unknown History Sustenna] Paliperidone [Invega] 6 mg PO DAILY 03/30/22 03/30/22 Unknown History ProAir HFA Inhaler 90 mcg INHALATION Q8HR PRN 03/30/22 03/30/22 Unknown History Tamsulosin [Flomax] 0.4 mg PO QDAY 03/30/22 03/30/22 Unknown History lisinopriL [Lisinopril] 10 mg PO DAILY 03/30/22 03/30/22 Unknown History Active Meds: Active Medications Albuterol (Albuterol 2.5 Mg/3 Ml Nebu) 2.5 mg IH Q4HRT PRN PRN Reason: Shortness Of Breath Cholecalciferol (Cholecalciferol (Vit D3) 1000 Unit (25 Mcg) Tab) 1,000 unit PO QDAY [facility] Last Admin: 04/02/22 12:00 Dose: 1,000 unit Cyanocobalamin (Cyanocobalamin (Vit B-12) 1000 Mcg Tab) 500 mcg PO DAILY [facility] Last Admin: 04/02/22 12:01 Dose: 500 mcg Divalproex Sodium (Divalproex Dr 500 Mg Tab) 500 mg PO BID [facility] Last Admin: 04/02/22 21:15 Dose: 500 mg Lisinopril (Lisinopril 10 Mg Tab) 10 mg PO DAILY [facility] Last Admin: 04/02/22 12:04 Dose: 10 mg Melatonin (Melatonin 5 Mg Tab) 10 mg PO QHS [facility] Last Admin: 04/02/22 21:16 Dose: 10 mg Mirtazapine (Mirtazapine 15 Mg Tab) 15 mg PO QHS [facility] Last Admin: 04/02/22 21:16 Dose: 15 mg Multivitamins/Minerals (Multivitamins,Ther W-Minerals Tab) 1 each PO QDAY [facility] Last Admin: 04/02/22 12:01 Dose: 1 each Paliperidone (Paliperidone Er 3 Mg Tab) 6 mg PO QDAY [facility] Last Admin: 04/02/22 12:02 Dose: 6 mg Tamsulosin HCl (Tamsulosin 0.4 Mg Cap) 0.4 mg PO QDAY [facility] Last Admin: 04/02/22 12:00 Dose: 0.4 mg Results - Results Labs/Vitals: Laboratory Last Values WBC 8.6 K/mm3 (4.5-11.0) 03/30/22 Unknown RBC 5.22 M/mm3 (3.65-5.03) H 03/30/22 Unknown Hgb 15.9 gm/dl (11.8-15.2) H 03/30/22 Unknown Hct 47.8 % (35.5-45.6) H 03/30/22 Unknown MCV 92 fl (84-94) 03/30/22 Unknown MCH 30 pg (28-32) 03/30/22 Unknown MCHC 33 % (32-34) 03/30/22 Unknown RDW 15.6 % (13.2-15.2) H 03/30/22 Unknown Plt Count 347 K/mm3 (140-440) 03/30/22 Unknown Lymph % (Auto) 22.6 % (13.4-35.0) 03/30/22 Unknown [place] % (Auto) 6.5 % (0.0-7.3) 03/30/22 Unknown Eos % (Auto) 1.5 % (0.0-4.3) 03/30/22 Unknown Baso % (Auto) 0.6 % (0.0-1.8) 03/30/22 Unknown Lymph # (Auto) 1.9 K/mm3 (1.2-5.4) 03/30/22 Unknown [place] # (Auto) 0.6 K/mm3 (0.0-0.8) 03/30/22 Unknown Eos # (Auto) 0.1 K/mm3 (0.0-0.4) 03/30/22 Unknown Baso # (Auto) 0.1 K/mm3 (0.0-0.1) 03/30/22 Unknown Seg Neutrophils % 68.8 % (40.0-70.0) 03/30/22 Unknown Seg Neutrophils # 5.9 K/mm3 (1.8-7.7) 03/30/22 Unknown Sodium 137 mmol/L (137-145) 03/30/22 Unknown Potassium 4.7 mmol/L (3.6-5.0) 03/30/22 Unknown Chloride 99.5 mmol/L (98-107) 03/30/22 Unknown Carbon Dioxide 23 mmol/L (22-30) 03/30/22 Unknown Anion Gap 19 mmol/L 03/30/22 Unknown BUN 20 mg/dL (9-20) 03/30/22 Unknown Creatinine 1.0 mg/dL (0.8-1.3) 03/30/22 Unknown Estimated GFR > 60 ml/min 03/30/22 Unknown BUN/Creatinine Ratio 20 % 03/30/22 Unknown Glucose 302 mg/dL (75-100) H 03/30/22 Unknown POC Glucose 131 mg/dL (70-105) H 04/03/22 06:05 Hemoglobin A1c 7.8 % (4-6) H 03/30/22 Unknown Calcium 9.6 mg/dL (8.4-10.2) 03/30/22 Unknown Total Bilirubin 0.40 mg/dL (0.1-1.2) 03/30/22 Unknown AST 18 units/L (5-40) 03/30/22 Unknown ALT 23 units/L (7-56) 03/30/22 Unknown Alkaline Phosphatase 117 units/L (35-129) 03/30/22 Unknown Total Protein 7.4 g/dL (6.3-8.2) 03/30/22 Unknown Albumin 4.5 g/dL (3.9-5) 03/30/22 Unknown Albumin/Globulin Ratio 1.6 % 03/30/22 Unknown Triglycerides 204 mg/dL (2-149) H 03/30/22 Unknown Cholesterol 143 mg/dL (50-199) 03/30/22 Unknown LDL Cholesterol Direct 83 mg/dL (50-130) 03/30/22 Unknown HDL Cholesterol 38 mg/dL (40-59) L 03/30/22 Unknown Cholesterol/HDL Ratio 3.76 % 03/30/22 Unknown TSH 1.930 mlU/mL (0.270-4.200) 03/30/22 Unknown Last Vital Signs Temp 97.7 F 04/03/22 07:33 Pulse 72 04/03/22 07:33 Resp 18 04/03/22 07:33 BP 115/66 04/03/22 07:33 Pulse Ox 96 04/03/22 07:33
[2022-04-03] MEDS: CYANOCOBALAMIN (VIT B-12) 1000 MCG TAB PO SCH (09:44)
[2022-04-03] MEDS: PALIPERIDONE ER 3 MG TAB PO SCH (09:44)
[2022-04-03] MEDS: TAMSULOSIN 0.4 MG CAP PO SCH (09:45)
[2022-04-03] MEDS: DIVALPROEX DR 500 MG TAB PO SCH ×2 (09:45→21:17)
[2022-04-03] MEDS: MULTIVITAMINS,THER W-MINERALS TAB PO SCH (09:45)
[2022-04-03] MEDS: CHOLECALCIFEROL (VIT D3) 1000 UNIT (25 mcg) TAB PO SCH (09:45)
[2022-04-03] MEDS: LISINOPRIL 10 MG TAB PO SCH (09:45)
[2022-04-03] MEDS: MELATONIN 5 MG TAB PO SCH (21:17)
[2022-04-03] MEDS: MIRTAZAPINE 15 MG TAB PO SCH (21:18)
--- NOTE | 2022-04-04 08:41 | Progress Note ---
Subjective Date of service: 04/04/22 Principal diagnosis: Bipolar Disorder Subjective Comment: 04/04:The patient was seen at breakfast. He states his mood is good. He reports sleep and appetite as good. He denies depression. He denies SI/HI and hallucinations. 04/03: The patient was seen today. he states mood is good. He reports sleep and appetite as good. He denies depression. He denies SI/HI and hallucinations. 04/02: The patient was seen today. He states he is doing alright. He reports sleep and appetite as good. He denies depression " I feel good." He denies SI/HI and hallucinations. 04/01: The patient was seen today. He is sitting in the dayroom. He is calm and cooperative. He is pleasant. He says he feels calm and relaxed. The patient says he slept well and his appetite is good. He denies SI/HI or hallucinations of any kind. REVIEW OF SYSTEMS Constitutional: Negative for weight loss ENT: Negative for stridor Respiratory: Negative for cough or hemoptysis All other systems reviewed and are negative MENTAL STATUS EXAMINATION General Appearance and Behavior: Age appropriate, wearing appropriate clothes, cooperative, polite with questioning, good eye contact Cooperation: cooperative Psychomotor Behavior: Psychomotor normal Mood: "good" Affect and affective range: congruent with stated affect Thought Process: goal directed Thought Content: reality oriented Speech: Normal volume, Regular rate and rhythm Suicidal Ideation: Denies Homicidal Ideation: Denies Hallucination: Denies Delusions: None elicited Impulse Control: Limited Insight and Judgment: Limited Memory: Intact Attention: attentive Orientation: Alert and oriented Diagnoses: Bipolar Disorder Treatment Plan Patient admitted for inpatient psychiatric evaluation, medication adjustment and close monitoring The patient's behavior, mood, sleep and appetite will be closely monitored. Patient enrolled in individual and group therapeutic sessions and encouraged to attend. Patient provided with a safe and structured environment. Patient's physical health needs will be addressed by the Hospitalist. Hospitalist Consulted Labs including CBC, CMP, Lipid profile and Hemoglobin A1C levels ordered for baseline reference Social Assessment will be completed and the Detective [place] will work with patient and family to ensure a suitable and safe disposition Medication adjustment will be made as clinically indicated Continue current regimen Usual Wellness Bahai/Preservation The patient agreed on the treatment plan, understood the risk, benefit, alternative treatment, potential consequence of no treatment, and gave informed consent. Estimated days: 7 Post hospital care: primary care provider, psychiatric provider Case staffed with Dr. Butler Medications and Allergies Medications and Allergies Allergies Allergy/AdvReac Type Severity Reaction Status Date / Time No Known Allergies Allergy Unverified 03/30/22 13:15 Home Medications Medication Instructions Recorded Confirmed Last Taken Type Cholecalciferol Vit D3 [Vitamin D3 1,000 unit PO QDAY 03/30/22 03/30/22 Unknown History 1,000 UNIT TAB] Cyanocobalamin [Vitamin B-12] 500 mcg PO DAILY 03/30/22 03/30/22 Unknown History Dapagliflozin Propanediol [Farxiga] 5 mg PO DAILY 03/30/22 03/30/22 Unknown History Divalproex Sodium [Depakote] 500 mg PO BID 03/30/22 03/30/22 Unknown History Melatonin [Melatonin 10MG TAB] 10 mg PO QHS 03/30/22 03/30/22 Unknown History Mirtazapine [Remeron 15mg TAB] 15 mg PO QHS 03/30/22 03/30/22 Unknown History Multivit-Min/Iron Fum/Folic AC 1 each PO DAILY 03/30/22 03/30/22 Unknown History [Xqhwn-Gltpbmb-Vnuseldv Tablet] Paliperidone Palmitate [Invega 156 mg IM QMONTH 03/30/22 03/30/22 Unknown History Sustenna] Paliperidone [Invega] 6 mg PO DAILY 03/30/22 03/30/22 Unknown History ProAir HFA Inhaler 90 mcg INHALATION Q8HR PRN 03/30/22 03/30/22 Unknown History Tamsulosin [Flomax] 0.4 mg PO QDAY 03/30/22 03/30/22 Unknown History lisinopriL [Lisinopril] 10 mg PO DAILY 03/30/22 03/30/22 Unknown History Active Meds: Active Medications Albuterol (Albuterol 2.5 Mg/3 Ml Nebu) 2.5 mg IH Q4HRT PRN PRN Reason: Shortness Of Breath Cholecalciferol (Cholecalciferol (Vit D3) 1000 Unit (25 Mcg) Tab) 1,000 unit PO QDAY [facility] Last Admin: 04/03/22 09:45 Dose: 1,000 unit Cyanocobalamin (Cyanocobalamin (Vit B-12) 1000 Mcg Tab) 500 mcg PO DAILY [facility] Last Admin: 04/03/22 09:44 Dose: 500 mcg Divalproex Sodium (Divalproex Dr 500 Mg Tab) 500 mg PO BID [facility] Last Admin: 04/03/22 21:17 Dose: 500 mg Lisinopril (Lisinopril 10 Mg Tab) 10 mg PO DAILY [facility] Last Admin: 04/03/22 09:45 Dose: 10 mg Melatonin (Melatonin 5 Mg Tab) 10 mg PO QHS [facility] Last Admin: 04/03/22 21:17 Dose: 10 mg Mirtazapine (Mirtazapine 15 Mg Tab) 15 mg PO QHS [facility] Last Admin: 04/03/22 21:18 Dose: 15 mg Multivitamins/Minerals (Multivitamins,Ther W-Minerals Tab) 1 each PO QDAY [facility] Last Admin: 04/03/22 09:45 Dose: 1 each Paliperidone (Paliperidone Er 3 Mg Tab) 6 mg PO QDAY [facility] Last Admin: 04/03/22 09:44 Dose: 6 mg Tamsulosin HCl (Tamsulosin 0.4 Mg Cap) 0.4 mg PO QDAY [facility] Last Admin: 04/03/22 09:45 Dose: 0.4 mg Results - Results Labs/Vitals: Laboratory Last Values WBC 8.6 K/mm3 (4.5-11.0) 03/30/22 Unknown RBC 5.22 M/mm3 (3.65-5.03) H 03/30/22 Unknown Hgb 15.9 gm/dl (11.8-15.2) H 03/30/22 Unknown Hct 47.8 % (35.5-45.6) H 03/30/22 Unknown MCV 92 fl (84-94) 03/30/22 Unknown MCH 30 pg (28-32) 03/30/22 Unknown MCHC 33 % (32-34) 03/30/22 Unknown RDW 15.6 % (13.2-15.2) H 03/30/22 Unknown Plt Count 347 K/mm3 (140-440) 03/30/22 Unknown Lymph % (Auto) 22.6 % (13.4-35.0) 03/30/22 Unknown [place] % (Auto) 6.5 % (0.0-7.3) 03/30/22 Unknown Eos % (Auto) 1.5 % (0.0-4.3) 03/30/22 Unknown Baso % (Auto) 0.6 % (0.0-1.8) 03/30/22 Unknown Lymph # (Auto) 1.9 K/mm3 (1.2-5.4) 03/30/22 Unknown [place] # (Auto) 0.6 K/mm3 (0.0-0.8) 03/30/22 Unknown Eos # (Auto) 0.1 K/mm3 (0.0-0.4) 03/30/22 Unknown Baso # (Auto) 0.1 K/mm3 (0.0-0.1) 03/30/22 Unknown Seg Neutrophils % 68.8 % (40.0-70.0) 03/30/22 Unknown Seg Neutrophils # 5.9 K/mm3 (1.8-7.7) 03/30/22 Unknown Sodium 137 mmol/L (137-145) 03/30/22 Unknown Potassium 4.7 mmol/L (3.6-5.0) 03/30/22 Unknown Chloride 99.5 mmol/L (98-107) 03/30/22 Unknown Carbon Dioxide 23 mmol/L (22-30) 03/30/22 Unknown Anion Gap 19 mmol/L 03/30/22 Unknown BUN 20 mg/dL (9-20) 03/30/22 Unknown Creatinine 1.0 mg/dL (0.8-1.3) 03/30/22 Unknown Estimated GFR > 60 ml/min 03/30/22 Unknown BUN/Creatinine Ratio 20 % 03/30/22 Unknown Glucose 302 mg/dL (75-100) H 03/30/22 Unknown POC Glucose 132 mg/dL (70-105) H 04/04/22 07:14 Hemoglobin A1c 7.8 % (4-6) H 03/30/22 Unknown Calcium 9.6 mg/dL (8.4-10.2) 03/30/22 Unknown Total Bilirubin 0.40 mg/dL (0.1-1.2) 03/30/22 Unknown AST 18 units/L (5-40) 03/30/22 Unknown ALT 23 units/L (7-56) 03/30/22 Unknown Alkaline Phosphatase 117 units/L (35-129) 03/30/22 Unknown Total Protein 7.4 g/dL (6.3-8.2) 03/30/22 Unknown Albumin 4.5 g/dL (3.9-5) 03/30/22 Unknown Albumin/Globulin Ratio 1.6 % 03/30/22 Unknown Triglycerides 204 mg/dL (2-149) H 03/30/22 Unknown Cholesterol 143 mg/dL (50-199) 03/30/22 Unknown LDL Cholesterol Direct 83 mg/dL (50-130) 03/30/22 Unknown HDL Cholesterol 38 mg/dL (40-59) L 03/30/22 Unknown Cholesterol/HDL Ratio 3.76 % 03/30/22 Unknown TSH 1.930 mlU/mL (0.270-4.200) 03/30/22 Unknown Last Vital Signs Temp 97.7 F 04/03/22 07:33 Pulse 72 04/03/22 09:45 Resp 18 04/03/22 07:33 BP 115/66 04/03/22 09:45 Pulse Ox 96 04/03/22 07:33
[2022-04-04] MEDS: CYANOCOBALAMIN (VIT B-12) 1000 MCG TAB PO SCH (09:16)
[2022-04-04] MEDS: MULTIVITAMINS,THER W-MINERALS TAB PO SCH (09:16)
[2022-04-04] MEDS: DIVALPROEX DR 500 MG TAB PO SCH ×2 (09:16→21:23)
[2022-04-04] MEDS: LISINOPRIL 10 MG TAB PO SCH (09:16)
[2022-04-04] MEDS: CHOLECALCIFEROL (VIT D3) 1000 UNIT (25 mcg) TAB PO SCH (09:17)
[2022-04-04] MEDS: PALIPERIDONE ER 3 MG TAB PO SCH (09:37)
[2022-04-04] MEDS ORDERED: DAPAGLIFLOZIN (NF) PROPANEDIOL 5 MG TAB PO SCH (11:00)
[2022-04-04] MEDS: TAMSULOSIN 0.4 MG CAP PO SCH (11:36)
--- NOTE | 2022-04-04 20:09 | Progress Note ---
Assessment and Plan - Patient Problems (1) Vascular dementia with behavioral disturbance Current Visit: Yes Status: Acute Plan to address problem: Verbal for prompting verbal redirection, benzodiazepine therapy as clinically indicated (2) Cerebral atherosclerosis Current Visit: Yes Status: Acute Plan to address problem: Risk factor reduction, antiplatelet therapy as clinically indicated (3) Hypertension Current Visit: Yes Status: Acute Qualifiers: Hypertension type: primary hypertension Qualified Code(s): I10 - Essential (primary) hypertension Plan to address problem: Monitor blood pressure every shift, continue medical management (4) Diabetes Current Visit: Yes Status: Acute Plan to address problem: Consistent carbohydrate diet, Accu-Chek, insulin protocol, hypoglycemia protocol. (5) BPH (benign prostatic hyperplasia) Current Visit: Yes Status: Acute Plan to address problem: Continue medical management, supportive care. Outpatient urology follow-up. (6) Asthma Current Visit: Yes Status: Acute Qualifiers: Asthma severity: mild Asthma persistence: intermittent Plan to address problem: Bronchodilator therapy as clinically indicated, supportive care. (7) PTSD (post-traumatic stress disorder) Current Visit: Yes Status: Acute Plan to address problem: Continue medical management, supportive care. (8) Schizophrenia Current Visit: Yes Status: Acute Plan to address problem: Continue medical management, supportive care. (9) Bipolar disorder Current Visit: Yes Status: Acute Plan to address problem: Cognitive behavioral therapy, continue medical management, supportive care. (10) Preventative health care Current Visit: Yes Status: Acute Plan to address problem: Patient counseled regarding risk factor reduction, increase physical activity discharge, +30 minutes. (11) Advance care planning Current Visit: Yes Status: Acute Plan to address problem: Disease education conducted, care plan discussed, diagnoses discussed, prognosis discussed. Patient acknowledges understanding and agreement with care plan, +30 minutes. History Interval history: 72 YO Male with Vascular Dementia with Behavioral Disturbance, Cerebral Atherosclerosis, Bipolar Disorder, HTN, DM, BPH, Mild Intermittent Asthma, Schizophrenia, PTSD admitted to [facility] for psychiatric stabilization. Consult placed by Dr. Ramsey for medical management. Pt seen and evaluated in the recreation room. Patient appears to be at baseline level of cognition and function. Hospitalist Physical - Constitutional Vitals: Temp Pulse Resp BP Pulse Ox 97.7 F 68 18 112/77 96 04/03/22 07:33 04/04/22 09:16 04/03/22 07:33 04/04/22 09:16 04/03/22 07:33 General appearance: Present: no acute distress, obese - EENT Eyes: Present: PERRL ENT: hearing decreased - Neck Neck: Present: supple - Respiratory Respiratory effort: normal Respiratory: bilateral: CTA - Cardiovascular Rhythm: regular Heart Sounds: Present: S1 & S2 - Extremities Extremities: no ischemia Peripheral Pulses: within normal limits - Abdominal General gastrointestinal: soft, non-tender, non-distended - Integumentary Integumentary: Present: clear, dry - Psychiatric Psychiatric: cooperative - Neurologic Neurologic: CNII-XII intact Results - Labs CBC & Chem 7: 03/30/22 Unknown 03/30/22 Unknown Labs: Laboratory Last Values WBC 8.6 K/mm3 (4.5-11.0) 03/30/22 Unknown RBC 5.22 M/mm3 (3.65-5.03) H 03/30/22 Unknown Hgb 15.9 gm/dl (11.8-15.2) H 03/30/22 Unknown Hct 47.8 % (35.5-45.6) H 03/30/22 Unknown MCV 92 fl (84-94) 03/30/22 Unknown MCH 30 pg (28-32) 03/30/22 Unknown MCHC 33 % (32-34) 03/30/22 Unknown RDW 15.6 % (13.2-15.2) H 03/30/22 Unknown Plt Count 347 K/mm3 (140-440) 03/30/22 Unknown Lymph % (Auto) 22.6 % (13.4-35.0) 03/30/22 Unknown [place] % (Auto) 6.5 % (0.0-7.3) 03/30/22 Unknown Eos % (Auto) 1.5 % (0.0-4.3) 03/30/22 Unknown Baso % (Auto) 0.6 % (0.0-1.8) 03/30/22 Unknown Lymph # (Auto) 1.9 K/mm3 (1.2-5.4) 03/30/22 Unknown [place] # (Auto) 0.6 K/mm3 (0.0-0.8) 03/30/22 Unknown Eos # (Auto) 0.1 K/mm3 (0.0-0.4) 03/30/22 Unknown Baso # (Auto) 0.1 K/mm3 (0.0-0.1) 03/30/22 Unknown Seg Neutrophils % 68.8 % (40.0-70.0) 03/30/22 Unknown Seg Neutrophils # 5.9 K/mm3 (1.8-7.7) 03/30/22 Unknown Sodium 137 mmol/L (137-145) 03/30/22 Unknown Potassium 4.7 mmol/L (3.6-5.0) 03/30/22 Unknown Chloride 99.5 mmol/L (98-107) 03/30/22 Unknown Carbon Dioxide 23 mmol/L (22-30) 03/30/22 Unknown Anion Gap 19 mmol/L 03/30/22 Unknown BUN 20 mg/dL (9-20) 03/30/22 Unknown Creatinine 1.0 mg/dL (0.8-1.3) 03/30/22 Unknown Estimated GFR > 60 ml/min 03/30/22 Unknown BUN/Creatinine Ratio 20 % 03/30/22 Unknown Glucose 302 mg/dL (75-100) H 03/30/22 Unknown POC Glucose 244 mg/dL (70-105) H 04/04/22 16:10 Hemoglobin A1c 7.8 % (4-6) H 03/30/22 Unknown Calcium 9.6 mg/dL (8.4-10.2) 03/30/22 Unknown Total Bilirubin 0.40 mg/dL (0.1-1.2) 03/30/22 Unknown AST 18 units/L (5-40) 03/30/22 Unknown ALT 23 units/L (7-56) 03/30/22 Unknown Alkaline Phosphatase 117 units/L (35-129) 03/30/22 Unknown Total Protein 7.4 g/dL (6.3-8.2) 03/30/22 Unknown Albumin 4.5 g/dL (3.9-5) 03/30/22 Unknown Albumin/Globulin Ratio 1.6 % 03/30/22 Unknown Triglycerides 204 mg/dL (2-149) H 03/30/22 Unknown Cholesterol 143 mg/dL (50-199) 03/30/22 Unknown LDL Cholesterol Direct 83 mg/dL (50-130) 03/30/22 Unknown HDL Cholesterol 38 mg/dL (40-59) L 03/30/22 Unknown Cholesterol/HDL Ratio 3.76 % 03/30/22 Unknown TSH 1.930 mlU/mL (0.270-4.200) 03/30/22 Unknown Avina/IV: Voiding Method Toilet Active Medications - Current Medications Current Medications: Generic Name Dose Route Start Last Admin Trade Name Freq PRN Reason Stop Dose Admin Albuterol 2.5 mg 03/31/22 11:40 Albuterol 2.5 Mg/3 Ml Nebu IH Q4HRT PRN Shortness Of Breath Cholecalciferol 1,000 unit 03/31/22 14:00 04/04/22 09:17 Cholecalciferol (Vit D3) 1000 Unit (25 Mcg) Tab PO 1,000 unit QDAY SALIMA Administration Cyanocobalamin 500 mcg 04/01/22 10:00 04/04/22 09:16 Cyanocobalamin (Vit B-12) 1000 Mcg Tab PO 500 mcg DAILY SALIMA Administration Divalproex Sodium 500 mg 03/31/22 22:00 04/04/22 09:[address] 500 Mg Tab PO 500 mg BID SALIMA Administration Lisinopril 10 mg 03/31/22 14:00 04/04/22 09:16 Lisinopril 10 Mg Tab PO 10 mg DAILY SALIMA Administration Melatonin 10 mg 03/31/22 22:00 04/03/22 21:17 Melatonin 5 Mg Tab PO 10 mg QHS SALIMA Administration Mirtazapine 15 mg 03/31/22 22:00 04/03/22 21:18 Mirtazapine 15 Mg Tab PO 15 mg QHS SALIMA Administration Multivitamins/Minerals 1 each 04/01/22 10:00 04/04/22 09:16 Multivitamins,Ther W-Minerals Tab PO 1 each QDAY SALIMA Administration Paliperidone 3 mg 04/04/22 10:00 04/04/22 09:37 Paliperidone Er 3 Mg Tab PO 3 mg QDAY SALIMA Administration Tamsulosin HCl 0.4 mg 03/31/22 14:00 04/04/22 11:36 Tamsulosin 0.4 Mg Cap PO 0.4 mg QDAY SALIMA Administration
[2022-04-04] MEDS: MIRTAZAPINE 15 MG TAB PO SCH (21:23)
[2022-04-04] MEDS: MELATONIN 5 MG TAB PO SCH (21:26)
--- NOTE | 2022-04-05 08:57 | Progress Note ---
Subjective Date of service: 04/05/22 Principal diagnosis: Bipolar Disorder Subjective Comment: 04/05: The patient was seen this morning. He is irritable. Per nurse , he was aggravated by a peer. He denies SI/HI and hallucinations. 04/04:The patient was seen at breakfast. He states his mood is good. He reports sleep and appetite as good. He denies depression. He denies SI/HI and hallucinations. 04/03: The patient was seen today. he states mood is good. He reports sleep and appetite as good. He denies depression. He denies SI/HI and hallucinations. 04/02: The patient was seen today. He states he is doing alright. He reports sleep and appetite as good. He denies depression " I feel good." He denies SI/HI and hallucinations. 04/01: The patient was seen today. He is sitting in the dayroom. He is calm and cooperative. He is pleasant. He says he feels calm and relaxed. The patient says he slept well and his appetite is good. He denies SI/HI or hallucinations of any kind. REVIEW OF SYSTEMS Constitutional: Negative for weight loss ENT: Negative for stridor Respiratory: Negative for cough or hemoptysis All other systems reviewed and are negative MENTAL STATUS EXAMINATION General Appearance and Behavior: Age appropriate, wearing appropriate clothes, cooperative, polite with questioning, good eye contact Cooperation: cooperative Psychomotor Behavior: Psychomotor normal Mood: Irritable Affect and affective range: congruent with stated affect Thought Process: goal directed Thought Content: reality oriented Speech: Normal volume, Regular rate and rhythm Suicidal Ideation: Denies Homicidal Ideation: Denies Hallucination: Denies Delusions: None elicited Impulse Control: Limited Insight and Judgment: Limited Memory: Intact Attention: attentive Orientation: Alert and oriented Diagnoses: Bipolar Disorder Treatment Plan Patient admitted for inpatient psychiatric evaluation, medication adjustment and close monitoring The patient's behavior, mood, sleep and appetite will be closely monitored. Patient enrolled in individual and group therapeutic sessions and encouraged to attend. Patient provided with a safe and structured environment. Patient's physical health needs will be addressed by the Hospitalist. Hospitalist Consulted Labs including CBC, CMP, Lipid profile and Hemoglobin A1C levels ordered for baseline reference Social Assessment will be completed and the Overnight Houseperson will work with patient and family to ensure a suitable and safe disposition Medication adjustment will be made as clinically indicated Continue current regimen Usual Wellness [place]/Preservation The patient agreed on the treatment plan, understood the risk, benefit, alternative treatment, potential consequence of no treatment, and gave informed consent. Estimated days: 7 Post hospital care: primary care provider, psychiatric provider Case staffed with Dr. Butler Medications and Allergies Medications and Allergies Allergies Allergy/AdvReac Type Severity Reaction Status Date / Time No Known Allergies Allergy Unverified 03/30/22 13:15 Home Medications Medication Instructions Recorded Confirmed Last Taken Type Cholecalciferol Vit D3 [Vitamin D3 1,000 unit PO QDAY 03/30/22 03/30/22 Unknown History 1,000 UNIT TAB] Cyanocobalamin [Vitamin B-12] 500 mcg PO DAILY 03/30/22 03/30/22 Unknown History Dapagliflozin Propanediol [Farxiga] 5 mg PO DAILY 03/30/22 03/30/22 Unknown History Divalproex Sodium [Depakote] 500 mg PO BID 03/30/22 03/30/22 Unknown History Melatonin [Melatonin 10MG TAB] 10 mg PO QHS 03/30/22 03/30/22 Unknown History Mirtazapine [Remeron 15mg TAB] 15 mg PO QHS 03/30/22 03/30/22 Unknown History Multivit-Min/Iron Fum/Folic AC 1 each PO DAILY 03/30/22 03/30/22 Unknown History [Mqtss-Xwowira-Renwyqdx Tablet] Paliperidone Palmitate [Invega 156 mg IM QMONTH 03/30/22 03/30/22 Unknown History Sustenna] Paliperidone [Invega] 6 mg PO DAILY 03/30/22 03/30/22 Unknown History ProAir HFA Inhaler 90 mcg INHALATION Q8HR PRN 03/30/22 03/30/22 Unknown History Tamsulosin [Flomax] 0.4 mg PO QDAY 03/30/22 03/30/22 Unknown History lisinopriL [Lisinopril] 10 mg PO DAILY 03/30/22 03/30/22 Unknown History Active Meds: Active Medications Albuterol (Albuterol 2.5 Mg/3 Ml Nebu) 2.5 mg IH Q4HRT PRN PRN Reason: Shortness Of Breath Cholecalciferol (Cholecalciferol (Vit D3) 1000 Unit (25 Mcg) Tab) 1,000 unit PO QDAY SALIMA Last Admin: 04/04/22 09:17 Dose: 1,000 unit Cyanocobalamin (Cyanocobalamin (Vit B-12) 1000 Mcg Tab) 500 mcg PO DAILY [facility] Last Admin: 04/04/22 09:16 Dose: 500 mcg Divalproex Sodium (Divalproex Dr 500 Mg Tab) 500 mg PO BID [facility] Last Admin: 04/04/22 21:23 Dose: 500 mg Lisinopril (Lisinopril 10 Mg Tab) 10 mg PO DAILY [facility] Last Admin: 04/04/22 09:16 Dose: 10 mg Melatonin (Melatonin 5 Mg Tab) 10 mg PO QHS [facility] Last Admin: 04/04/22 21:26 Dose: 10 mg Mirtazapine (Mirtazapine 15 Mg Tab) 15 mg PO QHS [facility] Last Admin: 04/04/22 21:23 Dose: 15 mg Multivitamins/Minerals (Multivitamins,Ther W-Minerals Tab) 1 each PO QDAY [facility] Last Admin: 04/04/22 09:16 Dose: 1 each Paliperidone (Paliperidone Er 3 Mg Tab) 3 mg PO QDAY [facility] Last Admin: 04/04/22 09:37 Dose: 3 mg Tamsulosin HCl (Tamsulosin 0.4 Mg Cap) 0.4 mg PO QDAY [facility] Last Admin: 04/04/22 11:36 Dose: 0.4 mg Results - Results Labs/Vitals: Laboratory Last Values WBC 8.6 K/mm3 (4.5-11.0) 03/30/22 Unknown RBC 5.22 M/mm3 (3.65-5.03) H 03/30/22 Unknown Hgb 15.9 gm/dl (11.8-15.2) H 03/30/22 Unknown Hct 47.8 % (35.5-45.6) H 03/30/22 Unknown MCV 92 fl (84-94) 03/30/22 Unknown MCH 30 pg (28-32) 03/30/22 Unknown MCHC 33 % (32-34) 03/30/22 Unknown RDW 15.6 % (13.2-15.2) H 03/30/22 Unknown Plt Count 347 K/mm3 (140-440) 03/30/22 Unknown Lymph % (Auto) 22.6 % (13.4-35.0) 03/30/22 Unknown [place] % (Auto) 6.5 % (0.0-7.3) 03/30/22 Unknown Eos % (Auto) 1.5 % (0.0-4.3) 03/30/22 Unknown Baso % (Auto) 0.6 % (0.0-1.8) 03/30/22 Unknown Lymph # (Auto) 1.9 K/mm3 (1.2-5.4) 03/30/22 Unknown [place] # (Auto) 0.6 K/mm3 (0.0-0.8) 03/30/22 Unknown Eos # (Auto) 0.1 K/mm3 (0.0-0.4) 03/30/22 Unknown Baso # (Auto) 0.1 K/mm3 (0.0-0.1) 03/30/22 Unknown Seg Neutrophils % 68.8 % (40.0-70.0) 03/30/22 Unknown Seg Neutrophils # 5.9 K/mm3 (1.8-7.7) 03/30/22 Unknown Sodium 137 mmol/L (137-145) 03/30/22 Unknown Potassium 4.7 mmol/L (3.6-5.0) 03/30/22 Unknown Chloride 99.5 mmol/L (98-107) 03/30/22 Unknown Carbon Dioxide 23 mmol/L (22-30) 03/30/22 Unknown Anion Gap 19 mmol/L 03/30/22 Unknown BUN 20 mg/dL (9-20) 03/30/22 Unknown Creatinine 1.0 mg/dL (0.8-1.3) 03/30/22 Unknown Estimated GFR > 60 ml/min 03/30/22 Unknown BUN/Creatinine Ratio 20 % 03/30/22 Unknown Glucose 302 mg/dL (75-100) H 03/30/22 Unknown POC Glucose 244 mg/dL (70-105) H 04/04/22 16:10 Hemoglobin A1c 7.8 % (4-6) H 03/30/22 Unknown Calcium 9.6 mg/dL (8.4-10.2) 03/30/22 Unknown Total Bilirubin 0.40 mg/dL (0.1-1.2) 03/30/22 Unknown AST 18 units/L (5-40) 03/30/22 Unknown ALT 23 units/L (7-56) 03/30/22 Unknown Alkaline Phosphatase 117 units/L (35-129) 03/30/22 Unknown Total Protein 7.4 g/dL (6.3-8.2) 03/30/22 Unknown Albumin 4.5 g/dL (3.9-5) 03/30/22 Unknown Albumin/Globulin Ratio 1.6 % 03/30/22 Unknown Triglycerides 204 mg/dL (2-149) H 03/30/22 Unknown Cholesterol 143 mg/dL (50-199) 03/30/22 Unknown LDL Cholesterol Direct 83 mg/dL (50-130) 03/30/22 Unknown HDL Cholesterol 38 mg/dL (40-59) L 03/30/22 Unknown Cholesterol/HDL Ratio 3.76 % 03/30/22 Unknown TSH 1.930 mlU/mL (0.270-4.200) 03/30/22 Unknown Last Vital Signs Temp 98.3 F 04/04/22 19:40 Pulse 68 04/04/22 19:40 Resp 16 04/04/22 19:40 BP 108/62 04/04/22 19:40 Pulse Ox 99 04/04/22 19:40
[2022-04-05] MEDS: CHOLECALCIFEROL (VIT D3) 1000 UNIT (25 mcg) TAB PO SCH (10:22)
[2022-04-05] MEDS: MULTIVITAMINS,THER W-MINERALS TAB PO SCH (10:22)
[2022-04-05] MEDS: TAMSULOSIN 0.4 MG CAP PO SCH (10:22)
[2022-04-05] MEDS: DIVALPROEX DR 500 MG TAB PO SCH ×2 (10:22→21:27)
[2022-04-05] MEDS: PALIPERIDONE ER 3 MG TAB PO SCH (10:22)
[2022-04-05] MEDS: LISINOPRIL 10 MG TAB PO SCH (10:26)
[2022-04-05] MEDS: CYANOCOBALAMIN (VIT B-12) 1000 MCG TAB PO SCH (10:42)
[2022-04-05] MEDS: MIRTAZAPINE 15 MG TAB PO SCH (21:27)
[2022-04-05] MEDS: MELATONIN 5 MG TAB PO SCH (21:27)
--- NOTE | 2022-04-06 10:11 | Progress Note ---
Subjective Date of service: 04/06/22 Principal diagnosis: Bipolar Disorder Subjective Comment: 04/06: The patient was seen this morning. He states he is doing well. The patient denies being depressed. He denies SI/HI and hallucinations. Awaiting placement. 04/05: The patient was seen this morning. He is irritable. Per nurse , he was aggravated by a peer. He denies SI/HI and hallucinations. 04/04:The patient was seen at breakfast. He states his mood is good. He reports sleep and appetite as good. He denies depression. He denies SI/HI and hallucinations. 04/03: The patient was seen today. he states mood is good. He reports sleep and appetite as good. He denies depression. He denies SI/HI and hallucinations. 04/02: The patient was seen today. He states he is doing alright. He reports sleep and appetite as good. He denies depression " I feel good." He denies SI/HI and hallucinations. 04/01: The patient was seen today. He is sitting in the dayroom. He is calm and cooperative. He is pleasant. He says he feels calm and relaxed. The patient says he slept well and his appetite is good. He denies SI/HI or hallucinations of any kind. REVIEW OF SYSTEMS Constitutional: Negative for weight loss ENT: Negative for stridor Respiratory: Negative for cough or hemoptysis All other systems reviewed and are negative MENTAL STATUS EXAMINATION General Appearance and Behavior: Age appropriate, wearing appropriate clothes, cooperative, polite with questioning, good eye contact Cooperation: cooperative Psychomotor Behavior: Psychomotor normal Mood: Calm Affect and affective range: congruent with stated affect Thought Process: goal directed Thought Content: reality oriented Speech: Normal volume, Regular rate and rhythm Suicidal Ideation: Denies Homicidal Ideation: Denies Hallucination: Denies Delusions: None elicited Impulse Control: Limited Insight and Judgment: Limited Memory: Intact Attention: attentive Orientation: Alert and oriented Diagnoses: Bipolar Disorder Treatment Plan Patient admitted for inpatient psychiatric evaluation, medication adjustment and close monitoring The patient's behavior, mood, sleep and appetite will be closely monitored. Patient enrolled in individual and group therapeutic sessions and encouraged to attend. Patient provided with a safe and structured environment. Patient's physical health needs will be addressed by the Hospitalist. Hospitalist Consulted Labs including CBC, CMP, Lipid profile and Hemoglobin A1C levels ordered for baseline reference Social Assessment will be completed and the Loan Servicing Officer will work with patient and family to ensure a suitable and safe disposition Medication adjustment will be made as clinically indicated Continue current regimen Usual Wellness [place]/Preservation The patient agreed on the treatment plan, understood the risk, benefit, alternative treatment, potential consequence of no treatment, and gave informed consent. Estimated days: 7 Post hospital care: primary care provider, psychiatric provider Case staffed with Dr. Butler Medications and Allergies Medications and Allergies Allergies Allergy/AdvReac Type Severity Reaction Status Date / Time No Known Allergies Allergy Unverified 03/30/22 13:15 Home Medications Medication Instructions Recorded Confirmed Last Taken Type Cholecalciferol Vit D3 [Vitamin D3 1,000 unit PO QDAY 03/30/22 03/30/22 Unknown History 1,000 UNIT TAB] Cyanocobalamin [Vitamin B-12] 500 mcg PO DAILY 03/30/22 03/30/22 Unknown History Dapagliflozin Propanediol [Farxiga] 5 mg PO DAILY 03/30/22 03/30/22 Unknown History Divalproex Sodium [Depakote] 500 mg PO BID 03/30/22 03/30/22 Unknown History Melatonin [Melatonin 10MG TAB] 10 mg PO QHS 03/30/22 03/30/22 Unknown History Mirtazapine [Remeron 15mg TAB] 15 mg PO QHS 03/30/22 03/30/22 Unknown History Multivit-Min/Iron Fum/Folic AC 1 each PO DAILY 03/30/22 03/30/22 Unknown History [Ozegp-Ykifbxv-Wframxdj Tablet] Paliperidone Palmitate [Invega 156 mg IM QMONTH 03/30/22 03/30/22 Unknown History Sustenna] Paliperidone [Invega] 6 mg PO DAILY 03/30/22 03/30/22 Unknown History ProAir HFA Inhaler 90 mcg INHALATION Q8HR PRN 03/30/22 03/30/22 Unknown History Tamsulosin [Flomax] 0.4 mg PO QDAY 03/30/22 03/30/22 Unknown History lisinopriL [Lisinopril] 10 mg PO DAILY 03/30/22 03/30/22 Unknown History Active Meds: Active Medications Albuterol (Albuterol 2.5 Mg/3 Ml Nebu) 2.5 mg IH Q4HRT PRN PRN Reason: Shortness Of Breath Cholecalciferol (Cholecalciferol (Vit D3) 1000 Unit (25 Mcg) Tab) 1,000 unit PO QDAY [facility] Last Admin: 04/05/22 10:22 Dose: 1,000 unit Cyanocobalamin (Cyanocobalamin (Vit B-12) 1000 Mcg Tab) 500 mcg PO DAILY [facility] Last Admin: 04/05/22 10:42 Dose: 500 mcg Divalproex Sodium (Divalproex Dr 500 Mg Tab) 500 mg PO BID [facility] Last Admin: 04/05/22 21:27 Dose: 500 mg Lisinopril (Lisinopril 10 Mg Tab) 10 mg PO DAILY [facility] Last Admin: 04/05/22 10:26 Dose: Not Given Melatonin (Melatonin 5 Mg Tab) 10 mg PO QHS [facility] Last Admin: 04/05/22 21:27 Dose: 10 mg Mirtazapine (Mirtazapine 15 Mg Tab) 15 mg PO QHS [facility] Last Admin: 04/05/22 21:27 Dose: 15 mg Multivitamins/Minerals (Multivitamins,Ther W-Minerals Tab) 1 each PO QDAY [facility] Last Admin: 04/05/22 10:22 Dose: 1 each Paliperidone (Paliperidone Er 3 Mg Tab) 3 mg PO QDAY [facility] Last Admin: 04/05/22 10:22 Dose: 3 mg Tamsulosin HCl (Tamsulosin 0.4 Mg Cap) 0.4 mg PO QDAY [facility] Last Admin: 04/05/22 10:22 Dose: 0.4 mg Results - Results Labs/Vitals: Laboratory Last Values WBC 8.6 K/mm3 (4.5-11.0) 03/30/22 Unknown RBC 5.22 M/mm3 (3.65-5.03) H 03/30/22 Unknown Hgb 15.9 gm/dl (11.8-15.2) H 03/30/22 Unknown Hct 47.8 % (35.5-45.6) H 03/30/22 Unknown MCV 92 fl (84-94) 03/30/22 Unknown MCH 30 pg (28-32) 03/30/22 Unknown MCHC 33 % (32-34) 03/30/22 Unknown RDW 15.6 % (13.2-15.2) H 03/30/22 Unknown Plt Count 347 K/mm3 (140-440) 03/30/22 Unknown Lymph % (Auto) 22.6 % (13.4-35.0) 03/30/22 Unknown [place] % (Auto) 6.5 % (0.0-7.3) 03/30/22 Unknown Eos % (Auto) 1.5 % (0.0-4.3) 03/30/22 Unknown Baso % (Auto) 0.6 % (0.0-1.8) 03/30/22 Unknown Lymph # (Auto) 1.9 K/mm3 (1.2-5.4) 03/30/22 Unknown [place] # (Auto) 0.6 K/mm3 (0.0-0.8) 03/30/22 Unknown Eos # (Auto) 0.1 K/mm3 (0.0-0.4) 03/30/22 Unknown Baso # (Auto) 0.1 K/mm3 (0.0-0.1) 03/30/22 Unknown Seg Neutrophils % 68.8 % (40.0-70.0) 03/30/22 Unknown Seg Neutrophils # 5.9 K/mm3 (1.8-7.7) 03/30/22 Unknown Sodium 137 mmol/L (137-145) 03/30/22 Unknown Potassium 4.7 mmol/L (3.6-5.0) 03/30/22 Unknown Chloride 99.5 mmol/L (98-107) 03/30/22 Unknown Carbon Dioxide 23 mmol/L (22-30) 03/30/22 Unknown Anion Gap 19 mmol/L 03/30/22 Unknown BUN 20 mg/dL (9-20) 03/30/22 Unknown Creatinine 1.0 mg/dL (0.8-1.3) 03/30/22 Unknown Estimated GFR > 60 ml/min 03/30/22 Unknown BUN/Creatinine Ratio 20 % 03/30/22 Unknown Glucose 302 mg/dL (75-100) H 03/30/22 Unknown POC Glucose 155 mg/dL (70-105) H 04/05/22 19:36 Hemoglobin A1c 7.8 % (4-6) H 03/30/22 Unknown Calcium 9.6 mg/dL (8.4-10.2) 03/30/22 Unknown Total Bilirubin 0.40 mg/dL (0.1-1.2) 03/30/22 Unknown AST 18 units/L (5-40) 03/30/22 Unknown ALT 23 units/L (7-56) 03/30/22 Unknown Alkaline Phosphatase 117 units/L (35-129) 03/30/22 Unknown Total Protein 7.4 g/dL (6.3-8.2) 03/30/22 Unknown Albumin 4.5 g/dL (3.9-5) 03/30/22 Unknown Albumin/Globulin Ratio 1.6 % 03/30/22 Unknown Triglycerides 204 mg/dL (2-149) H 03/30/22 Unknown Cholesterol 143 mg/dL (50-199) 03/30/22 Unknown LDL Cholesterol Direct 83 mg/dL (50-130) 03/30/22 Unknown HDL Cholesterol 38 mg/dL (40-59) L 03/30/22 Unknown Cholesterol/HDL Ratio 3.76 % 03/30/22 Unknown TSH 1.930 mlU/mL (0.270-4.200) 03/30/22 Unknown Last Vital Signs Temp 97.9 F 04/05/22 19:15 Pulse 70 04/05/22 19:15 Resp 17 04/05/22 19:15 BP 147/84 04/05/22 19:15 Pulse Ox 98 04/05/22 19:15
[2022-04-06] MEDS: LISINOPRIL 10 MG TAB PO SCH (10:39)
[2022-04-06] MEDS: TAMSULOSIN 0.4 MG CAP PO SCH (10:40)
[2022-04-06] MEDS: CYANOCOBALAMIN (VIT B-12) 1000 MCG TAB PO SCH (10:40)
[2022-04-06] MEDS: MULTIVITAMINS,THER W-MINERALS TAB PO SCH (10:40)
[2022-04-06] MEDS: PALIPERIDONE ER 3 MG TAB PO SCH (10:40)
[2022-04-06] MEDS: CHOLECALCIFEROL (VIT D3) 1000 UNIT (25 mcg) TAB PO SCH (10:40)
[2022-04-06] MEDS: DIVALPROEX DR 500 MG TAB PO SCH ×2 (10:41→22:05)
[2022-04-06] MEDS: MELATONIN 5 MG TAB PO SCH (22:05)
[2022-04-06] MEDS: MIRTAZAPINE 15 MG TAB PO SCH (22:09)
--- NOTE | 2022-04-07 09:33 | Progress Note ---
Subjective Date of service: 04/07/22 Principal diagnosis: Bipolar Disorder Subjective Comment: 04/07:The patient was seen this morning. He reports mood as good. The patient denies being depressed. He denies SI/HI and hallucinations. Awaiting placement. 04/06: The patient was seen this morning. He states he is doing well. The patient denies being depressed. He denies SI/HI and hallucinations. Awaiting placement. 04/05: The patient was seen this morning. He is irritable. Per nurse , he was aggravated by a peer. He denies SI/HI and hallucinations. 04/04:The patient was seen at breakfast. He states his mood is good. He reports sleep and appetite as good. He denies depression. He denies SI/HI and hallucinations. 04/03: The patient was seen today. he states mood is good. He reports sleep and appetite as good. He denies depression. He denies SI/HI and hallucinations. 04/02: The patient was seen today. He states he is doing alright. He reports sleep and appetite as good. He denies depression " I feel good." He denies SI/HI and hallucinations. 04/01: The patient was seen today. He is sitting in the dayroom. He is calm and cooperative. He is pleasant. He says he feels calm and relaxed. The patient says he slept well and his appetite is good. He denies SI/HI or hallucinations of any kind. REVIEW OF SYSTEMS Constitutional: Negative for weight loss ENT: Negative for stridor Respiratory: Negative for cough or hemoptysis All other systems reviewed and are negative MENTAL STATUS EXAMINATION General Appearance and Behavior: Age appropriate, wearing appropriate clothes, cooperative, polite with questioning, good eye contact Cooperation: cooperative Psychomotor Behavior: Psychomotor normal Mood: "good" Affect and affective range: congruent with stated affect Thought Process: goal directed Thought Content: reality oriented Speech: Normal volume, Regular rate and rhythm Suicidal Ideation: Denies Homicidal Ideation: Denies Hallucination: Denies Delusions: None elicited Impulse Control: Limited Insight and Judgment: Limited Memory: Intact Attention: attentive Orientation: Alert and oriented Diagnoses: Bipolar Disorder Treatment Plan Patient admitted for inpatient psychiatric evaluation, medication adjustment and close monitoring The patient's behavior, mood, sleep and appetite will be closely monitored. Patient enrolled in individual and group therapeutic sessions and encouraged to attend. Patient provided with a safe and structured environment. Patient's physical health needs will be addressed by the Hospitalist. Hospitalist Consulted Labs including CBC, CMP, Lipid profile and Hemoglobin A1C levels ordered for baseline reference Social Assessment will be completed and the Manager Warehouse will work with patient and family to ensure a suitable and safe disposition Medication adjustment will be made as clinically indicated Continue current regimen Usual Wellness Taoist/Preservation The patient agreed on the treatment plan, understood the risk, benefit, alternative treatment, potential consequence of no treatment, and gave informed consent. Estimated days: 7 Post hospital care: primary care provider, psychiatric provider Case staffed with Dr. Butler Medications and Allergies Medications and Allergies Allergies Allergy/AdvReac Type Severity Reaction Status Date / Time No Known Allergies Allergy Unverified 03/30/22 13:15 Home Medications Medication Instructions Recorded Confirmed Last Taken Type Cholecalciferol Vit D3 [Vitamin D3 1,000 unit PO QDAY 03/30/22 03/30/22 Unknown History 1,000 UNIT TAB] Cyanocobalamin [Vitamin B-12] 500 mcg PO DAILY 03/30/22 03/30/22 Unknown History Dapagliflozin Propanediol [Farxiga] 5 mg PO DAILY 03/30/22 03/30/22 Unknown History Divalproex Sodium [Depakote] 500 mg PO BID 03/30/22 03/30/22 Unknown History Melatonin [Melatonin 10MG TAB] 10 mg PO QHS 03/30/22 03/30/22 Unknown History Mirtazapine [Remeron 15mg TAB] 15 mg PO QHS 03/30/22 03/30/22 Unknown History Multivit-Min/Iron Fum/Folic AC 1 each PO DAILY 03/30/22 03/30/22 Unknown History [[id number]-[id number]-Yndlgtma Tablet] Paliperidone Palmitate [Invega 156 mg IM QMONTH 03/30/22 03/30/22 Unknown History Sustenna] Paliperidone [Invega] 6 mg PO DAILY 03/30/22 03/30/22 Unknown History ProAir HFA Inhaler 90 mcg INHALATION Q8HR PRN 03/30/22 03/30/22 Unknown History Tamsulosin [Flomax] 0.4 mg PO QDAY 03/30/22 03/30/22 Unknown History lisinopriL [Lisinopril] 10 mg PO DAILY 03/30/22 03/30/22 Unknown History Active Meds: Active Medications Albuterol (Albuterol 2.5 Mg/3 Ml Nebu) 2.5 mg IH Q4HRT PRN PRN Reason: Shortness Of Breath Cholecalciferol (Cholecalciferol (Vit D3) 1000 Unit (25 Mcg) Tab) 1,000 unit PO QDAY [facility] Last Admin: 04/06/22 10:40 Dose: 1,000 unit Cyanocobalamin (Cyanocobalamin (Vit B-12) 1000 Mcg Tab) 500 mcg PO DAILY [facility] Last Admin: 04/06/22 10:40 Dose: 500 mcg Divalproex Sodium (Divalproex Dr 500 Mg Tab) 500 mg PO BID [facility] Last Admin: 04/06/22 22:05 Dose: 500 mg Lisinopril (Lisinopril 10 Mg Tab) 10 mg PO DAILY [facility] Last Admin: 04/06/22 10:39 Dose: 10 mg Melatonin (Melatonin 5 Mg Tab) 10 mg PO QHS [facility] Last Admin: 04/06/22 22:05 Dose: 10 mg Mirtazapine (Mirtazapine 15 Mg Tab) 15 mg PO QHS [facility] Last Admin: 04/06/22 22:09 Dose: 15 mg Multivitamins/Minerals (Multivitamins,Ther W-Minerals Tab) 1 each PO QDAY [facility] Last Admin: 04/06/22 10:40 Dose: 1 each Paliperidone (Paliperidone Er 3 Mg Tab) 3 mg PO QDAY [facility] Last Admin: 04/06/22 10:40 Dose: 3 mg Tamsulosin HCl (Tamsulosin 0.4 Mg Cap) 0.4 mg PO QDAY [facility] Last Admin: 04/06/22 10:40 Dose: 0.4 mg Results - Results Labs/Vitals: Laboratory Last Values WBC 8.6 K/mm3 (4.5-11.0) 03/30/22 Unknown RBC 5.22 M/mm3 (3.65-5.03) H 03/30/22 Unknown Hgb 15.9 gm/dl (11.8-15.2) H 03/30/22 Unknown Hct 47.8 % (35.5-45.6) H 03/30/22 Unknown MCV 92 fl (84-94) 03/30/22 Unknown MCH 30 pg (28-32) 03/30/22 Unknown MCHC 33 % (32-34) 03/30/22 Unknown RDW 15.6 % (13.2-15.2) H 03/30/22 Unknown Plt Count 347 K/mm3 (140-440) 03/30/22 Unknown Lymph % (Auto) 22.6 % (13.4-35.0) 03/30/22 Unknown Sargent % (Auto) 6.5 % (0.0-7.3) 03/30/22 Unknown Eos % (Auto) 1.5 % (0.0-4.3) 03/30/22 Unknown Baso % (Auto) 0.6 % (0.0-1.8) 03/30/22 Unknown Lymph # (Auto) 1.9 K/mm3 (1.2-5.4) 03/30/22 Unknown Sargent # (Auto) 0.6 K/mm3 (0.0-0.8) 03/30/22 Unknown Eos # (Auto) 0.1 K/mm3 (0.0-0.4) 03/30/22 Unknown Baso # (Auto) 0.1 K/mm3 (0.0-0.1) 03/30/22 Unknown Seg Neutrophils % 68.8 % (40.0-70.0) 03/30/22 Unknown Seg Neutrophils # 5.9 K/mm3 (1.8-7.7) 03/30/22 Unknown Sodium 137 mmol/L (137-145) 03/30/22 Unknown Potassium 4.7 mmol/L (3.6-5.0) 03/30/22 Unknown Chloride 99.5 mmol/L (98-107) 03/30/22 Unknown Carbon Dioxide 23 mmol/L (22-30) 03/30/22 Unknown Anion Gap 19 mmol/L 03/30/22 Unknown BUN 20 mg/dL (9-20) 03/30/22 Unknown Creatinine 1.0 mg/dL (0.8-1.3) 03/30/22 Unknown Estimated GFR > 60 ml/min 03/30/22 Unknown BUN/Creatinine Ratio 20 % 03/30/22 Unknown Glucose 302 mg/dL (75-100) H 03/30/22 Unknown POC Glucose 211 mg/dL (70-105) H 04/06/22 19:21 Hemoglobin A1c 7.8 % (4-6) H 03/30/22 Unknown Calcium 9.6 mg/dL (8.4-10.2) 03/30/22 Unknown Total Bilirubin 0.40 mg/dL (0.1-1.2) 03/30/22 Unknown AST 18 units/L (5-40) 03/30/22 Unknown ALT 23 units/L (7-56) 03/30/22 Unknown Alkaline Phosphatase 117 units/L (35-129) 03/30/22 Unknown Total Protein 7.4 g/dL (6.3-8.2) 03/30/22 Unknown Albumin 4.5 g/dL (3.9-5) 03/30/22 Unknown Albumin/Globulin Ratio 1.6 % 03/30/22 Unknown Triglycerides 204 mg/dL (2-149) H 03/30/22 Unknown Cholesterol 143 mg/dL (50-199) 03/30/22 Unknown LDL Cholesterol Direct 83 mg/dL (50-130) 03/30/22 Unknown HDL Cholesterol 38 mg/dL (40-59) L 03/30/22 Unknown Cholesterol/HDL Ratio 3.76 % 03/30/22 Unknown TSH 1.930 mlU/mL (0.270-4.200) 03/30/22 Unknown Last Vital Signs Temp 98.1 F 04/06/22 18:57 Pulse 70 04/06/22 18:57 Resp 18 04/06/22 18:57 BP 156/74 04/06/22 18:57 Pulse Ox 99 04/06/22 18:57
[2022-04-07] MEDS: LISINOPRIL 10 MG TAB PO SCH (09:58)
[2022-04-07] MEDS: TAMSULOSIN 0.4 MG CAP PO SCH (09:58)
[2022-04-07] MEDS: MULTIVITAMINS,THER W-MINERALS TAB PO SCH (09:58)
[2022-04-07] MEDS: CYANOCOBALAMIN (VIT B-12) 1000 MCG TAB PO SCH (09:58)
[2022-04-07] MEDS: DIVALPROEX DR 500 MG TAB PO SCH ×2 (09:58→21:01)
[2022-04-07] MEDS: PALIPERIDONE ER 3 MG TAB PO SCH (09:59)
[2022-04-07] MEDS: CHOLECALCIFEROL (VIT D3) 1000 UNIT (25 mcg) TAB PO SCH (10:02)
[2022-04-07] MEDS: MIRTAZAPINE 15 MG TAB PO SCH (21:01)
[2022-04-07] MEDS: MELATONIN 5 MG TAB PO SCH (21:01)
--- NOTE | 2022-04-08 09:22 | Progress Note ---
Subjective Date of service: 04/08/22 Principal diagnosis: Bipolar Disorder Subjective Comment: 04/08: The patient was seen this morning. He reports mood as good. The patient denies being depressed. He denies SI/HI and hallucinations. Awaiting placement. 04/07:The patient was seen this morning. He reports mood as good. The patient denies being depressed. He denies SI/HI and hallucinations. Awaiting placement. 04/06: The patient was seen this morning. He states he is doing well. The patient denies being depressed. He denies SI/HI and hallucinations. Awaiting placement. 04/05: The patient was seen this morning. He is irritable. Per nurse , he was aggravated by a peer. He denies SI/HI and hallucinations. 04/04:The patient was seen at breakfast. He states his mood is good. He reports sleep and appetite as good. He denies depression. He denies SI/HI and hallucinations. 04/03: The patient was seen today. he states mood is good. He reports sleep and appetite as good. He denies depression. He denies SI/HI and hallucinations. 04/02: The patient was seen today. He states he is doing alright. He reports sleep and appetite as good. He denies depression " I feel good." He denies SI/HI and hallucinations. 04/01: The patient was seen today. He is sitting in the dayroom. He is calm and cooperative. He is pleasant. He says he feels calm and relaxed. The patient says he slept well and his appetite is good. He denies SI/HI or hallucinations of any kind. REVIEW OF SYSTEMS Constitutional: Negative for weight loss ENT: Negative for stridor Respiratory: Negative for cough or hemoptysis All other systems reviewed and are negative MENTAL STATUS EXAMINATION General Appearance and Behavior: Age appropriate, wearing appropriate clothes, cooperative, polite with questioning, good eye contact Cooperation: cooperative Psychomotor Behavior: Psychomotor normal Mood: "good" Affect and affective range: congruent with stated affect Thought Process: goal directed Thought Content: reality oriented Speech: Normal volume, Regular rate and rhythm Suicidal Ideation: Denies Homicidal Ideation: Denies Hallucination: Denies Delusions: None elicited Impulse Control: Limited Insight and Judgment: Limited Memory: Intact Attention: attentive Orientation: Alert and oriented Diagnoses: Bipolar Disorder Treatment Plan Patient admitted for inpatient psychiatric evaluation, medication adjustment and close monitoring The patient's behavior, mood, sleep and appetite will be closely monitored. Patient enrolled in individual and group therapeutic sessions and encouraged to attend. Patient provided with a safe and structured environment. Patient's physical health needs will be addressed by the Hospitalist. Hospitalist Consulted Labs including CBC, CMP, Lipid profile and Hemoglobin A1C levels ordered for baseline reference Social Assessment will be completed and the Analytical Chemist will work with patient and family to ensure a suitable and safe disposition Medication adjustment will be made as clinically indicated Continue current regimen Usual Wellness Jainism/Preservation The patient agreed on the treatment plan, understood the risk, benefit, alternative treatment, potential consequence of no treatment, and gave informed consent. Estimated days: 7 Post hospital care: primary care provider, psychiatric provider Case staffed with Dr. Butler Medications and Allergies Medications and Allergies Allergies Allergy/AdvReac Type Severity Reaction Status Date / Time No Known Allergies Allergy Unverified 03/30/22 13:15 Home Medications Medication Instructions Recorded Confirmed Last Taken Type Cholecalciferol Vit D3 [Vitamin D3 1,000 unit PO QDAY 03/30/22 03/30/22 Unknown History 1,000 UNIT TAB] Cyanocobalamin [Vitamin B-12] 500 mcg PO DAILY 03/30/22 03/30/22 Unknown History Dapagliflozin Propanediol [Farxiga] 5 mg PO DAILY 03/30/22 03/30/22 Unknown History Divalproex Sodium [Depakote] 500 mg PO BID 03/30/22 03/30/22 Unknown History Melatonin [Melatonin 10MG TAB] 10 mg PO QHS 03/30/22 03/30/22 Unknown History Mirtazapine [Remeron 15mg TAB] 15 mg PO QHS 03/30/22 03/30/22 Unknown History Multivit-Min/Iron Fum/Folic AC 1 each PO DAILY 03/30/22 03/30/22 Unknown History [[id number]-Epzrcghk Tablet] Paliperidone Palmitate [Invega 156 mg IM QMONTH 03/30/22 03/30/22 Unknown History Sustenna] Paliperidone [Invega] 6 mg PO DAILY 03/30/22 03/30/22 Unknown History ProAir HFA Inhaler 90 mcg INHALATION Q8HR PRN 03/30/22 03/30/22 Unknown History Tamsulosin [Flomax] 0.4 mg PO QDAY 03/30/22 03/30/22 Unknown History lisinopriL [Lisinopril] 10 mg PO DAILY 03/30/22 03/30/22 Unknown History Active Meds: Active Medications Albuterol (Albuterol 2.5 Mg/3 Ml Nebu) 2.5 mg IH Q4HRT PRN PRN Reason: Shortness Of Breath Cholecalciferol (Cholecalciferol (Vit D3) 1000 Unit (25 Mcg) Tab) 1,000 unit PO QDAY [facility] Last Admin: 04/07/22 10:02 Dose: 1,000 unit Cyanocobalamin (Cyanocobalamin (Vit B-12) 1000 Mcg Tab) 500 mcg PO DAILY [facility] Last Admin: 04/07/22 09:58 Dose: 500 mcg Divalproex Sodium (Divalproex Dr 500 Mg Tab) 500 mg PO BID [facility] Last Admin: 04/07/22 21:01 Dose: 500 mg Lisinopril (Lisinopril 10 Mg Tab) 10 mg PO DAILY [facility] Last Admin: 04/07/22 09:58 Dose: 10 mg Melatonin (Melatonin 5 Mg Tab) 10 mg PO QHS [facility] Last Admin: 04/07/22 21:01 Dose: 10 mg Mirtazapine (Mirtazapine 15 Mg Tab) 15 mg PO QHS [facility] Last Admin: 04/07/22 21:01 Dose: 15 mg Multivitamins/Minerals (Multivitamins,Ther W-Minerals Tab) 1 each PO QDAY [facility] Last Admin: 04/07/22 09:58 Dose: 1 each Paliperidone (Paliperidone Er 3 Mg Tab) 3 mg PO QDAY [facility] Last Admin: 04/07/22 09:59 Dose: 3 mg Tamsulosin HCl (Tamsulosin 0.4 Mg Cap) 0.4 mg PO QDAY [facility] Last Admin: 04/07/22 09:58 Dose: 0.4 mg Results - Results Labs/Vitals: Laboratory Last Values WBC 8.6 K/mm3 (4.5-11.0) 03/30/22 Unknown RBC 5.22 M/mm3 (3.65-5.03) H 03/30/22 Unknown Hgb 15.9 gm/dl (11.8-15.2) H 03/30/22 Unknown Hct 47.8 % (35.5-45.6) H 03/30/22 Unknown MCV 92 fl (84-94) 03/30/22 Unknown MCH 30 pg (28-32) 03/30/22 Unknown MCHC 33 % (32-34) 03/30/22 Unknown RDW 15.6 % (13.2-15.2) H 03/30/22 Unknown Plt Count 347 K/mm3 (140-440) 03/30/22 Unknown Lymph % (Auto) 22.6 % (13.4-35.0) 03/30/22 Unknown Tyrrell % (Auto) 6.5 % (0.0-7.3) 03/30/22 Unknown Eos % (Auto) 1.5 % (0.0-4.3) 03/30/22 Unknown Baso % (Auto) 0.6 % (0.0-1.8) 03/30/22 Unknown Lymph # (Auto) 1.9 K/mm3 (1.2-5.4) 03/30/22 Unknown Tyrrell # (Auto) 0.6 K/mm3 (0.0-0.8) 03/30/22 Unknown Eos # (Auto) 0.1 K/mm3 (0.0-0.4) 03/30/22 Unknown Baso # (Auto) 0.1 K/mm3 (0.0-0.1) 03/30/22 Unknown Seg Neutrophils % 68.8 % (40.0-70.0) 03/30/22 Unknown Seg Neutrophils # 5.9 K/mm3 (1.8-7.7) 03/30/22 Unknown Sodium 137 mmol/L (137-145) 03/30/22 Unknown Potassium 4.7 mmol/L (3.6-5.0) 03/30/22 Unknown Chloride 99.5 mmol/L (98-107) 03/30/22 Unknown Carbon Dioxide 23 mmol/L (22-30) 03/30/22 Unknown Anion Gap 19 mmol/L 03/30/22 Unknown BUN 20 mg/dL (9-20) 03/30/22 Unknown Creatinine 1.0 mg/dL (0.8-1.3) 03/30/22 Unknown Estimated GFR > 60 ml/min 03/30/22 Unknown BUN/Creatinine Ratio 20 % 03/30/22 Unknown Glucose 302 mg/dL (75-100) H 03/30/22 Unknown POC Glucose 123 mg/dL (70-105) H 04/08/22 06:17 Hemoglobin A1c 7.8 % (4-6) H 03/30/22 Unknown Calcium 9.6 mg/dL (8.4-10.2) 03/30/22 Unknown Total Bilirubin 0.40 mg/dL (0.1-1.2) 03/30/22 Unknown AST 18 units/L (5-40) 03/30/22 Unknown ALT 23 units/L (7-56) 03/30/22 Unknown Alkaline Phosphatase 117 units/L (35-129) 03/30/22 Unknown Total Protein 7.4 g/dL (6.3-8.2) 03/30/22 Unknown Albumin 4.5 g/dL (3.9-5) 03/30/22 Unknown Albumin/Globulin Ratio 1.6 % 03/30/22 Unknown Triglycerides 204 mg/dL (2-149) H 03/30/22 Unknown Cholesterol 143 mg/dL (50-199) 03/30/22 Unknown LDL Cholesterol Direct 83 mg/dL (50-130) 03/30/22 Unknown HDL Cholesterol 38 mg/dL (40-59) L 03/30/22 Unknown Cholesterol/HDL Ratio 3.76 % 03/30/22 Unknown TSH 1.930 mlU/mL (0.270-4.200) 03/30/22 Unknown Last Vital Signs Temp 98.3 F 04/07/22 22:00 Pulse 78 04/07/22 22:00 Resp 18 04/07/22 22:00 BP 150/83 04/07/22 22:00 Pulse Ox 97 04/07/22 22:00
[2022-04-08] MEDS: CYANOCOBALAMIN (VIT B-12) 1000 MCG TAB PO SCH (09:40)
[2022-04-08] MEDS: DIVALPROEX DR 500 MG TAB PO SCH ×2 (09:40→21:01)
[2022-04-08] MEDS: LISINOPRIL 10 MG TAB PO SCH (09:41)
[2022-04-08] MEDS: MULTIVITAMINS,THER W-MINERALS TAB PO SCH (09:41)
[2022-04-08] MEDS: PALIPERIDONE ER 3 MG TAB PO SCH (09:41)
[2022-04-08] MEDS: TAMSULOSIN 0.4 MG CAP PO SCH (09:41)
[2022-04-08] MEDS: CHOLECALCIFEROL (VIT D3) 1000 UNIT (25 mcg) TAB PO SCH (09:41)
--- NOTE | 2022-04-08 11:42 | Progress Note ---
Assessment and Plan Assessment and plan: Discussed with the nursing staff this morning. We will adjust blood sugar medications and start patient on sliding scale as h15 home medication is nonformulary. Patient Problems (1) Vascular dementia with behavioral disturbance Current Visit: Yes Status: Acute Plan to address problem: Verbal for prompting verbal redirection, benzodiazepine therapy as clinically indicated (2) Cerebral atherosclerosis Current Visit: Yes Status: Acute Plan to address problem: Risk factor reduction, antiplatelet therapy as clinically indicated (3) Hypertension Current Visit: Yes Status: Acute Qualifiers: Hypertension type: primary hypertension Qualified Code(s): I10 - Essential (primary) hypertension Plan to address problem: Monitor blood pressure every shift, continue medical management (4) Diabetes Current Visit: Yes Status: Acute Plan to address problem: Consistent carbohydrate diet, Accu-Chek, insulin protocol, hypoglycemia protocol. (5) BPH (benign prostatic hyperplasia) Current Visit: Yes Status: Acute Plan to address problem: Continue medical management, supportive care. Outpatient urology follow-up. (6) Asthma Current Visit: Yes Status: Acute Qualifiers: Asthma severity: mild Asthma persistence: intermittent Plan to address problem: Bronchodilator therapy as clinically indicated, supportive care. (7) PTSD (post-traumatic stress disorder) Current Visit: Yes Status: Acute Plan to address problem: Continue medical management, supportive care. (8) Schizophrenia Current Visit: Yes Status: Acute Plan to address problem: Continue medical management, supportive care. (9) Bipolar disorder Current Visit: Yes Status: Acute Plan to address problem: Cognitive behavioral therapy, continue medical management, supportive care. (10) Preventative health care Current Visit: Yes Status: Acute Plan to address problem: Patient counseled regarding risk factor reduction, increase physical activity discharge, +30 minutes. (11) Advance care planning Current Visit: Yes Status: Acute Plan to address problem: Disease education conducted, care plan discussed, diagnoses discussed, prognosis discussed. Patient acknowledges understanding and agreement with care plan, +30 minutes. History Interval history: 72 YO Male with Vascular Dementia with Behavioral Disturbance, Cerebral Atherosclerosis, Bipolar Disorder, HTN, DM, BPH, Mild Intermittent Asthma, Schizophrenia, PTSD admitted to [facility] for psychiatric stabilization. Consult placed by Dr. Ramsey for medical management. Pt seen and evaluated in the recreation room. Patient appears to be at baseline level of cognition and function. Nursing staff called reporting that the patient's blood sugar medication was erroneously discontinued Hospitalist Physical - Physical exam Narrative exam: General appearance: Present: no acute distress, obese - EENT Eyes: Present: PERRL ENT: hearing decreased - Neck Neck: Present: supple - Respiratory Respiratory effort: normal Respiratory: bilateral: CTA - Cardiovascular Rhythm: regular Heart Sounds: Present: S1 & S2 - Extremities Extremities: no ischemia Peripheral Pulses: within normal limits - Abdominal General gastrointestinal: soft, non-tender, non-distended - Integumentary Integumentary: Present: clear, dry - Psychiatric Psychiatric: cooperative - Neurologic Neurologic: CNII-XII intact - Constitutional Vitals: Temp Pulse Resp BP Pulse Ox 98.3 F 77 18 111/81 97 04/07/22 22:00 04/08/22 09:41 04/07/22 22:00 04/08/22 09:41 04/07/22 22:00 General appearance: Present: no acute distress, obese Results - Labs CBC & Chem 7: 03/30/22 Unknown 03/30/22 Unknown Labs: Laboratory Last Values WBC 8.6 K/mm3 (4.5-11.0) 03/30/22 Unknown RBC 5.22 M/mm3 (3.65-5.03) H 03/30/22 Unknown Hgb 15.9 gm/dl (11.8-15.2) H 03/30/22 Unknown Hct 47.8 % (35.5-45.6) H 03/30/22 Unknown MCV 92 fl (84-94) 03/30/22 Unknown MCH 30 pg (28-32) 03/30/22 Unknown MCHC 33 % (32-34) 03/30/22 Unknown RDW 15.6 % (13.2-15.2) H 03/30/22 Unknown Plt Count 347 K/mm3 (140-440) 03/30/22 Unknown Lymph % (Auto) 22.6 % (13.4-35.0) 03/30/22 Unknown [place] % (Auto) 6.5 % (0.0-7.3) 03/30/22 Unknown Eos % (Auto) 1.5 % (0.0-4.3) 03/30/22 Unknown Baso % (Auto) 0.6 % (0.0-1.8) 03/30/22 Unknown Lymph # (Auto) 1.9 K/mm3 (1.2-5.4) 03/30/22 Unknown [place] # (Auto) 0.6 K/mm3 (0.0-0.8) 03/30/22 Unknown Eos # (Auto) 0.1 K/mm3 (0.0-0.4) 03/30/22 Unknown Baso # (Auto) 0.1 K/mm3 (0.0-0.1) 03/30/22 Unknown Seg Neutrophils % 68.8 % (40.0-70.0) 03/30/22 Unknown Seg Neutrophils # 5.9 K/mm3 (1.8-7.7) 03/30/22 Unknown Sodium 137 mmol/L (137-145) 03/30/22 Unknown Potassium 4.7 mmol/L (3.6-5.0) 03/30/22 Unknown Chloride 99.5 mmol/L (98-107) 03/30/22 Unknown Carbon Dioxide 23 mmol/L (22-30) 03/30/22 Unknown Anion Gap 19 mmol/L 03/30/22 Unknown BUN 20 mg/dL (9-20) 03/30/22 Unknown Creatinine 1.0 mg/dL (0.8-1.3) 03/30/22 Unknown Estimated GFR > 60 ml/min 03/30/22 Unknown BUN/Creatinine Ratio 20 % 03/30/22 Unknown Glucose 302 mg/dL (75-100) H 03/30/22 Unknown POC Glucose 123 mg/dL (70-105) H 04/08/22 06:17 Hemoglobin A1c 7.8 % (4-6) H 03/30/22 Unknown Calcium 9.6 mg/dL (8.4-10.2) 03/30/22 Unknown Total Bilirubin 0.40 mg/dL (0.1-1.2) 03/30/22 Unknown AST 18 units/L (5-40) 03/30/22 Unknown ALT 23 units/L (7-56) 03/30/22 Unknown Alkaline Phosphatase 117 units/L (35-129) 03/30/22 Unknown Total Protein 7.4 g/dL (6.3-8.2) 03/30/22 Unknown Albumin 4.5 g/dL (3.9-5) 03/30/22 Unknown Albumin/Globulin Ratio 1.6 % 03/30/22 Unknown Triglycerides 204 mg/dL (2-149) H 03/30/22 Unknown Cholesterol 143 mg/dL (50-199) 03/30/22 Unknown LDL Cholesterol Direct 83 mg/dL (50-130) 03/30/22 Unknown HDL Cholesterol 38 mg/dL (40-59) L 03/30/22 Unknown Cholesterol/HDL Ratio 3.76 % 03/30/22 Unknown TSH 1.930 mlU/mL (0.270-4.200) 03/30/22 Unknown Avina/IV: Voiding Method Toilet Active Medications - Current Medications Current Medications: Generic Name Dose Route Start Last Admin Trade Name Freq PRN Reason Stop Dose Admin Albuterol 2.5 mg 03/31/22 11:40 Albuterol 2.5 Mg/3 Ml Nebu IH Q4HRT PRN Shortness Of Breath Cholecalciferol 1,000 unit 03/31/22 14:00 04/08/22 09:41 Cholecalciferol (Vit D3) 1000 Unit (25 Mcg) Tab PO 1,000 unit QDAY SALIMA Administration Cyanocobalamin 500 mcg 04/01/22 10:00 04/08/22 09:40 Cyanocobalamin (Vit B-12) 1000 Mcg Tab PO 500 mcg DAILY SALIMA Administration Divalproex Sodium 500 mg 03/31/22 22:00 04/08/22 09:[address] 500 Mg Tab PO 500 mg BID SALIMA Administration Lisinopril 10 mg 03/31/22 14:00 04/08/22 09:41 Lisinopril 10 Mg Tab PO 10 mg DAILY SALIMA Administration Melatonin 10 mg 03/31/22 22:00 04/07/22 21:01 Melatonin 5 Mg Tab PO 10 mg QHS SALIMA Administration Mirtazapine 15 mg 03/31/22 22:00 04/07/22 21:01 Mirtazapine 15 Mg Tab PO 15 mg QHS SALIMA Administration Multivitamins/Minerals 1 each 04/01/22 10:00 04/08/22 09:41 Multivitamins,Ther W-Minerals Tab PO 1 each QDAY SALIMA Administration Paliperidone 3 mg 04/04/22 10:00 04/08/22 09:41 Paliperidone Er 3 Mg Tab PO 3 mg QDAY SALIMA Administration Tamsulosin HCl 0.4 mg 03/31/22 14:00 04/08/22 09:41 Tamsulosin 0.4 Mg Cap PO 0.4 mg QDAY SALIMA Administration Nutrition/Malnutrition Assess - Dietary Evaluation Nutrition/Malnutrition Findings: Nutrition Notes Start: 04/06/22 16:18 Freq: Status: Active Protocol: Document 04/06/22 16:18 ZANA (Rec: 04/06/22 16:24 ZANA [id number]) Nutrition Notes Need for Assessment generated from: LOS Initial or Follow up Assessment Current Diagnosis Diabetes,Hypertension Current Diet Cardiac/Consistent Carbohydrate Labs/Tests 04/06: Glu 125 TG 204 HDL 38 Pertinent Medications 04/06: Vit D B12 MVI Other medications nutritionally unremarkable. Height 5 ft 10 in Weight 95.2 kg [place] Body Weight (kg) 75.45 BMI 30.1 Intake Prior to Admission Good Weight change and time frame No reported unintentional wt loss LIBERAL ARTS DEAN Weight Status Obese Subjective/Other Information RD LOS assessment. Pt chart reviewed. GI, Integumentary, Respiratory function WNL. Pt ambulating. No information regarding Youth Counselor strength. Pt consuming 100% of meals during admission (x 7 days). Will continue to monitor and follow-up. Percent of energy/protein needs met: Prescribed Cardiac/Consistent Carbohydrates Diet provides for energy/protein needs (1, 977 Kcal/86 g) during LOS. Burn Absent Trauma Absent GI Symptoms None Food Allergy No Skin Integrity/Comment WNL Current % PO Good (75-100%) Minimum of two criteria No Fluid Accumulation N/A Reduced Youth Counselor Strength N/A (non-severe) Protein-Calorie Malnutrition N\A #1 Nutrition Diagnosis No nutrition diagnosis at this time Is patient on ventilator? No Is Patient Ambulatory and/or Out of Bed Yes REE-([facility]-ambulatory/OOB) [ 2207.725 [id number]] Calculation Used for Recommendations [facility] Additional Notes 1.0-1.2g/kg ABW 95-114g PRO q day Fluid requirements: 30mL/kg ABW 2856mL q day Nutrition Intervention Change Diet Order: Continue cardiac/consistent carbohydrate diet as tolerable . Goal #1 Pt to consume >75% of estimated energy needs during LOS. Follow-Up By: 04/13/22 Additional Comments Monitor PO intake, diet tolerance, and BM.
[2022-04-08] MEDS ORDERED: DEXTROSE 50% IN WATER (25GM) 50 ML SYRINGE IV PRN (11:43)
[2022-04-08] MEDS: INSULIN LISPRO 100 UNIT/ML SUB-Q SCH ×2 (16:51→21:02)
[2022-04-08] MEDS: MELATONIN 5 MG TAB PO SCH (21:01)
[2022-04-08] MEDS: MIRTAZAPINE 15 MG TAB PO SCH (21:02)
[2022-04-09] MEDS: INSULIN LISPRO 100 UNIT/ML SUB-Q SCH ×3 (07:43→17:24)
[2022-04-09] MEDS: MULTIVITAMINS,THER W-MINERALS TAB PO SCH (09:05)
[2022-04-09] MEDS: LISINOPRIL 10 MG TAB PO SCH (09:05)
[2022-04-09] MEDS: PALIPERIDONE ER 3 MG TAB PO SCH (09:05)
[2022-04-09] MEDS: DIVALPROEX DR 500 MG TAB PO SCH ×2 (09:05→21:41)
[2022-04-09] MEDS: TAMSULOSIN 0.4 MG CAP PO SCH (09:05)
[2022-04-09] MEDS: CYANOCOBALAMIN (VIT B-12) 1000 MCG TAB PO SCH (09:05)
[2022-04-09] MEDS: CHOLECALCIFEROL (VIT D3) 1000 UNIT (25 mcg) TAB PO SCH (09:05)
--- NOTE | 2022-04-09 12:11 | Progress Note ---
Subjective Date of service: 04/09/22 Principal diagnosis: Bipolar Disorder Subjective Comment: The patient was seen today. He is lying down. He appears comfortable. He says he has a cramp in his leg. I encouraged him to move about. He says he tried that. The patient denies SI/HI or hallucinations of any kind. REVIEW OF SYSTEMS Constitutional: Negative for weight loss ENT: Negative for stridor Respiratory: Negative for cough or hemoptysis All other systems reviewed and are negative MENTAL STATUS EXAMINATION General Appearance and Behavior: Age appropriate, wearing appropriate clothes, cooperative, polite with questioning, good eye contact Cooperation: cooperative Psychomotor Behavior: Psychomotor normal Mood: okay Affect and affective range: congruent with stated affect Thought Process: goal directed Thought Content: None Speech: Normal volume, Regular rate and rhythm Suicidal Ideation: Denies Homicidal Ideation: Denies Hallucination: Denies Delusions: None elicited Impulse Control: Limited Insight and Judgment: Limited Memory: Intact Attention: attentive Orientation: Alert and oriented Diagnoses: Bipolar Disorder Treatment Plan Patient admitted for inpatient psychiatric evaluation, medication adjustment and close monitoring The patient's behavior, mood, sleep and appetite will be closely monitored. Patient enrolled in individual and group therapeutic sessions and encouraged to attend. Patient provided with a safe and structured environment. Patient's physical health needs will be addressed by the Hospitalist. Hospitalist Consulted Labs including CBC, CMP, Lipid profile and Hemoglobin A1C levels ordered for baseline reference Social Assessment will be completed and the Society Reporter will work with patient and family to ensure a suitable and safe disposition Medication adjustment will be made as clinically indicated Continue current regimen Usual Wellness Orthodoxy/Preservation The patient agreed on the treatment plan, understood the risk, benefit, alternative treatment, potential consequence of no treatment, and gave informed consent. Estimated days: 7 Post hospital care: primary care provider, psychiatric provider Case staffed with Dr. Butler Medications and Allergies Allergies Allergy/AdvReac Type Severity Reaction Status Date / Time No Known Allergies Allergy Unverified 03/30/22 13:15 Home Medications Medication Instructions Recorded Confirmed Last Taken Type Cholecalciferol Vit D3 [Vitamin D3 1,000 unit PO QDAY 03/30/22 03/30/22 Unknown History 1,000 UNIT TAB] Cyanocobalamin [Vitamin B-12] 500 mcg PO DAILY 03/30/22 03/30/22 Unknown History Dapagliflozin Propanediol [Farxiga] 5 mg PO DAILY 03/30/22 03/30/22 Unknown History Divalproex Sodium [Depakote] 500 mg PO BID 03/30/22 03/30/22 Unknown History Melatonin [Melatonin 10MG TAB] 10 mg PO QHS 03/30/22 03/30/22 Unknown History Mirtazapine [Remeron 15mg TAB] 15 mg PO QHS 03/30/22 03/30/22 Unknown History Multivit-Min/Iron Fum/Folic AC 1 each PO DAILY 03/30/22 03/30/22 Unknown History [Exoyt-Owwfflj-Yvwoxngj Tablet] Paliperidone Palmitate [Invega 156 mg IM QMONTH 03/30/22 03/30/22 Unknown History Sustenna] Paliperidone [Invega] 6 mg PO DAILY 03/30/22 03/30/22 Unknown History ProAir HFA Inhaler 90 mcg INHALATION Q8HR PRN 03/30/22 03/30/22 Unknown History Tamsulosin [Flomax] 0.4 mg PO QDAY 03/30/22 03/30/22 Unknown History lisinopriL [Lisinopril] 10 mg PO DAILY 03/30/22 03/30/22 Unknown History Active Meds: Active Medications Albuterol (Albuterol 2.5 Mg/3 Ml Nebu) 2.5 mg IH Q4HRT PRN PRN Reason: Shortness Of Breath Cholecalciferol (Cholecalciferol (Vit D3) 1000 Unit (25 Mcg) Tab) 1,000 unit PO QDAY [facility] Last Admin: 04/09/22 09:05 Dose: 1,000 unit Cyanocobalamin (Cyanocobalamin (Vit B-12) 1000 Mcg Tab) 500 mcg PO DAILY [facility] Last Admin: 04/09/22 09:05 Dose: 500 mcg Dextrose (Dextrose 50% In Water (25gm) 50 Ml Syringe) 50 ml IV Q30MIN PRN; Protocol PRN Reason: Hypoglycemia Divalproex Sodium (Divalproex Dr 500 Mg Tab) 500 mg PO BID [facility] Last Admin: 04/09/22 09:05 Dose: 500 mg Insulin Human Lispro (Insulin Lispro 100 Unit/Ml) 0 unit SUB-Q ACHS [facility]; Protocol Last Admin: 04/09/22 12:04 Dose: 1 unit Lisinopril (Lisinopril 10 Mg Tab) 10 mg PO DAILY [facility] Last Admin: 04/09/22 09:05 Dose: 10 mg Melatonin (Melatonin 5 Mg Tab) 10 mg PO QHS [facility] Last Admin: 04/08/22 21:01 Dose: 10 mg Mirtazapine (Mirtazapine 15 Mg Tab) 15 mg PO QHS [facility] Last Admin: 04/08/22 21:02 Dose: 15 mg Multivitamins/Minerals (Multivitamins,Ther W-Minerals Tab) 1 each PO QDAY [facility] Last Admin: 04/09/22 09:05 Dose: 1 each Paliperidone (Paliperidone Er 3 Mg Tab) 3 mg PO QDAY [facility] Last Admin: 04/09/22 09:05 Dose: 3 mg Tamsulosin HCl (Tamsulosin 0.4 Mg Cap) 0.4 mg PO QDAY [facility] Last Admin: 04/09/22 09:05 Dose: 0.4 mg Results - Results Labs/Vitals: Laboratory Last Values WBC 8.6 K/mm3 (4.5-11.0) 03/30/22 Unknown RBC 5.22 M/mm3 (3.65-5.03) H 03/30/22 Unknown Hgb 15.9 gm/dl (11.8-15.2) H 03/30/22 Unknown Hct 47.8 % (35.5-45.6) H 03/30/22 Unknown MCV 92 fl (84-94) 03/30/22 Unknown MCH 30 pg (28-32) 03/30/22 Unknown MCHC 33 % (32-34) 03/30/22 Unknown RDW 15.6 % (13.2-15.2) H 03/30/22 Unknown Plt Count 347 K/mm3 (140-440) 03/30/22 Unknown Lymph % (Auto) 22.6 % (13.4-35.0) 03/30/22 Unknown [place] % (Auto) 6.5 % (0.0-7.3) 03/30/22 Unknown Eos % (Auto) 1.5 % (0.0-4.3) 03/30/22 Unknown Baso % (Auto) 0.6 % (0.0-1.8) 03/30/22 Unknown Lymph # (Auto) 1.9 K/mm3 (1.2-5.4) 03/30/22 Unknown [place] # (Auto) 0.6 K/mm3 (0.0-0.8) 03/30/22 Unknown Eos # (Auto) 0.1 K/mm3 (0.0-0.4) 03/30/22 Unknown Baso # (Auto) 0.1 K/mm3 (0.0-0.1) 03/30/22 Unknown Seg Neutrophils % 68.8 % (40.0-70.0) 03/30/22 Unknown Seg Neutrophils # 5.9 K/mm3 (1.8-7.7) 03/30/22 Unknown Sodium 137 mmol/L (137-145) 03/30/22 Unknown Potassium 4.7 mmol/L (3.6-5.0) 03/30/22 Unknown Chloride 99.5 mmol/L (98-107) 03/30/22 Unknown Carbon Dioxide 23 mmol/L (22-30) 03/30/22 Unknown Anion Gap 19 mmol/L 03/30/22 Unknown BUN 20 mg/dL (9-20) 03/30/22 Unknown Creatinine 1.0 mg/dL (0.8-1.3) 03/30/22 Unknown Estimated GFR > 60 ml/min 03/30/22 Unknown BUN/Creatinine Ratio 20 % 03/30/22 Unknown Glucose 302 mg/dL (75-100) H 03/30/22 Unknown POC Glucose 105 mg/dL (70-105) 04/09/22 06:58 Hemoglobin A1c 7.8 % (4-6) H 03/30/22 Unknown Calcium 9.6 mg/dL (8.4-10.2) 03/30/22 Unknown Total Bilirubin 0.40 mg/dL (0.1-1.2) 03/30/22 Unknown AST 18 units/L (5-40) 03/30/22 Unknown ALT 23 units/L (7-56) 03/30/22 Unknown Alkaline Phosphatase 117 units/L (35-129) 03/30/22 Unknown Total Protein 7.4 g/dL (6.3-8.2) 03/30/22 Unknown Albumin 4.5 g/dL (3.9-5) 03/30/22 Unknown Albumin/Globulin Ratio 1.6 % 03/30/22 Unknown Triglycerides 204 mg/dL (2-149) H 03/30/22 Unknown Cholesterol 143 mg/dL (50-199) 03/30/22 Unknown LDL Cholesterol Direct 83 mg/dL (50-130) 03/30/22 Unknown HDL Cholesterol 38 mg/dL (40-59) L 03/30/22 Unknown Cholesterol/HDL Ratio 3.76 % 03/30/22 Unknown TSH 1.930 mlU/mL (0.270-4.200) 03/30/22 Unknown Last Vital Signs Temp 98.7 F 04/09/22 06:52 Pulse 77 04/09/22 09:05 Resp 18 04/09/22 06:52 BP 132/79 04/09/22 09:05 Pulse Ox 96 04/09/22 06:52
--- NOTE | 2022-04-09 16:37 | Progress Note ---
Assessment and Plan Assessment and plan: (1) Vascular dementia with behavioral disturbance Verbal for prompting verbal redirection, benzodiazepine therapy as clinically indicated (2) Cerebral atherosclerosis Risk factor reduction, antiplatelet therapy as clinically indicated (3) Hypertension Monitor blood pressure every shift, continue medical management (4) Diabetes Consistent carbohydrate diet, Accu-Chek, insulin protocol, hypoglycemia protocol. (5) BPH (benign prostatic hyperplasia) Continue medical management, supportive care. Outpatient urology follow-up. (6) Asthma Bronchodilator therapy as clinically indicated, supportive care. (7) PTSD (post-traumatic stress disorder) Management per psych (8) Schizophrenia Management per psych (9) Bipolar disorder Cognitive behavioral therapy, management per psych (10) Preventative health care Patient counseled regarding risk factor reduction, increase physical activity discharge, +30 minutes. (11) Advance care planning Disease education conducted, care plan discussed, diagnoses discussed, prognosis discussed. Patient acknowledges understanding and agreement with care plan, +30 minutes. Closely monitor the patient and adjust management as needed Plan of care reviewed with the patient and his nurse Call us with questions History Interval history: I have seen and examined the patient in the day room No overnight events reported by the nursing Patient says she feels better no new complaints Vital signs noted Hospitalist Physical - Constitutional Vitals: Temp Pulse Resp BP Pulse Ox 98.7 F 77 18 132/79 96 04/09/22 06:52 04/09/22 09:05 04/09/22 06:52 04/09/22 09:05 04/09/22 06:52 General appearance: Present: no acute distress, well-nourished, obese - EENT Eyes: Present: PERRL, EOM intact - Neck Neck: Present: supple, normal ROM - Respiratory Respiratory effort: normal Respiratory: bilateral: diminished, negative: rales, rhonchi, wheezing - Cardiovascular Rhythm: regular Heart Sounds: Present: S1 & S2 - Extremities Extremities: no ischemia, No edema - Abdominal General gastrointestinal: soft, non-tender, non-distended, normal bowel sounds - Integumentary Integumentary: Present: clear, warm - Psychiatric Psychiatric: appropriate mood/affect, cooperative - Neurologic Neurologic: CNII-XII intact Results - Labs CBC & Chem 7: 03/30/22 Unknown 03/30/22 Unknown Labs: Laboratory Last Values WBC 8.6 K/mm3 (4.5-11.0) 03/30/22 Unknown RBC 5.22 M/mm3 (3.65-5.03) H 03/30/22 Unknown Hgb 15.9 gm/dl (11.8-15.2) H 03/30/22 Unknown Hct 47.8 % (35.5-45.6) H 03/30/22 Unknown MCV 92 fl (84-94) 03/30/22 Unknown MCH 30 pg (28-32) 03/30/22 Unknown MCHC 33 % (32-34) 03/30/22 Unknown RDW 15.6 % (13.2-15.2) H 03/30/22 Unknown Plt Count 347 K/mm3 (140-440) 03/30/22 Unknown Lymph % (Auto) 22.6 % (13.4-35.0) 03/30/22 Unknown [place] % (Auto) 6.5 % (0.0-7.3) 03/30/22 Unknown Eos % (Auto) 1.5 % (0.0-4.3) 03/30/22 Unknown Baso % (Auto) 0.6 % (0.0-1.8) 03/30/22 Unknown Lymph # (Auto) 1.9 K/mm3 (1.2-5.4) 03/30/22 Unknown [place] # (Auto) 0.6 K/mm3 (0.0-0.8) 03/30/22 Unknown Eos # (Auto) 0.1 K/mm3 (0.0-0.4) 03/30/22 Unknown Baso # (Auto) 0.1 K/mm3 (0.0-0.1) 03/30/22 Unknown Seg Neutrophils % 68.8 % (40.0-70.0) 03/30/22 Unknown Seg Neutrophils # 5.9 K/mm3 (1.8-7.7) 03/30/22 Unknown Sodium 137 mmol/L (137-145) 03/30/22 Unknown Potassium 4.7 mmol/L (3.6-5.0) 03/30/22 Unknown Chloride 99.5 mmol/L (98-107) 03/30/22 Unknown Carbon Dioxide 23 mmol/L (22-30) 03/30/22 Unknown Anion Gap 19 mmol/L 03/30/22 Unknown BUN 20 mg/dL (9-20) 03/30/22 Unknown Creatinine 1.0 mg/dL (0.8-1.3) 03/30/22 Unknown Estimated GFR > 60 ml/min 03/30/22 Unknown BUN/Creatinine Ratio 20 % 03/30/22 Unknown Glucose 302 mg/dL (75-100) H 03/30/22 Unknown POC Glucose 161 mg/dL (70-105) H 04/09/22 11:35 Hemoglobin A1c 7.8 % (4-6) H 03/30/22 Unknown Calcium 9.6 mg/dL (8.4-10.2) 03/30/22 Unknown Total Bilirubin 0.40 mg/dL (0.1-1.2) 03/30/22 Unknown AST 18 units/L (5-40) 03/30/22 Unknown ALT 23 units/L (7-56) 03/30/22 Unknown Alkaline Phosphatase 117 units/L (35-129) 03/30/22 Unknown Total Protein 7.4 g/dL (6.3-8.2) 03/30/22 Unknown Albumin 4.5 g/dL (3.9-5) 03/30/22 Unknown Albumin/Globulin Ratio 1.6 % 03/30/22 Unknown Triglycerides 204 mg/dL (2-149) H 03/30/22 Unknown Cholesterol 143 mg/dL (50-199) 03/30/22 Unknown LDL Cholesterol Direct 83 mg/dL (50-130) 03/30/22 Unknown HDL Cholesterol 38 mg/dL (40-59) L 03/30/22 Unknown Cholesterol/HDL Ratio 3.76 % 03/30/22 Unknown TSH 1.930 mlU/mL (0.270-4.200) 03/30/22 Unknown Avina/IV: Voiding Method Toilet Active Medications - Current Medications Current Medications: Generic Name Dose Route Start Last Admin Trade Name Freq PRN Reason Stop Dose Admin Albuterol 2.5 mg 03/31/22 11:40 Albuterol 2.5 Mg/3 Ml Nebu IH Q4HRT PRN Shortness Of Breath Cholecalciferol 1,000 unit 03/31/22 14:00 04/09/22 09:05 Cholecalciferol (Vit D3) 1000 Unit (25 Mcg) Tab PO 1,000 unit QDAY SALIMA Administration Cyanocobalamin 500 mcg 04/01/22 10:00 04/09/22 09:05 Cyanocobalamin (Vit B-12) 1000 Mcg Tab PO 500 mcg DAILY SALIMA Administration Dextrose 50 ml 04/08/22 11:43 Dextrose 50% In Water (25gm) 50 Ml Syringe IV Q30MIN PRN Hypoglycemia Protocol Divalproex Sodium 500 mg 03/31/22 22:00 04/09/22 09:[address] 500 Mg Tab PO 500 mg BID SALIMA Administration Insulin Human Lispro 0 unit 04/08/22 16:30 04/09/22 12:04 Insulin Lispro 100 Unit/Ml SUB-Q 1 unit ACHS SALIMA Administration Protocol Lisinopril 10 mg 03/31/22 14:00 04/09/22 09:05 Lisinopril 10 Mg Tab PO 10 mg DAILY SALIMA Administration Melatonin 10 mg 03/31/22 22:00 04/08/22 21:01 Melatonin 5 Mg Tab PO 10 mg QHS SALIMA Administration Mirtazapine 15 mg 03/31/22 22:00 04/08/22 21:02 Mirtazapine 15 Mg Tab PO 15 mg QHS SALIMA Administration Multivitamins/Minerals 1 each 04/01/22 10:00 04/09/22 09:05 Multivitamins,Ther W-Minerals Tab PO 1 each QDAY SALIMA Administration Paliperidone 3 mg 04/04/22 10:00 04/09/22 09:05 Paliperidone Er 3 Mg Tab PO 3 mg QDAY SALIMA Administration Tamsulosin HCl 0.4 mg 03/31/22 14:00 04/09/22 09:05 Tamsulosin 0.4 Mg Cap PO 0.4 mg QDAY SALIMA Administration Nutrition/Malnutrition Assess - Dietary Evaluation Nutrition/Malnutrition Findings: Nutrition Notes Start: 04/06/22 16:18 Freq: Status: Active Protocol: Document 04/06/22 16:18 ZANA (Rec: 04/06/22 16:24 ZANA [id number]) Nutrition Notes Need for Assessment generated from: LOS Initial or Follow up Assessment Current Diagnosis Diabetes,Hypertension Current Diet Cardiac/Consistent Carbohydrate Labs/Tests 04/06: Glu 125 TG 204 HDL 38 Pertinent Medications 04/06: Vit D B12 MVI Other medications nutritionally unremarkable. 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 Pt chart reviewed. GI, Integumentary, Respiratory function WNL. Pt ambulating. No information regarding Business Support Professional strength. Pt consuming 100% of meals during admission (x 7 days). Will continue to monitor and follow-up. Percent of energy/protein needs met: Prescribed Cardiac/Consistent Carbohydrates Diet provides for energy/protein needs (1, 977 Kcal/86 g) during LOS. Burn Absent Trauma Absent GI Symptoms None Food Allergy No Skin Integrity/Comment WNL Current % PO Good (75-100%) Minimum of two criteria No Fluid Accumulation N/A Reduced Business Support Professional Strength N/A (non-severe) Protein-Calorie Malnutrition N\A #1 Nutrition Diagnosis No nutrition diagnosis at this time Is patient on ventilator? No Is Patient Ambulatory and/or Out of Bed Yes REE-([facility]-ambulatory/OOB) [ 2207.725 NUTR.MSJOOB] Calculation Used for Recommendations [facility] Additional Notes 1.0-1.2g/kg ABW 95-114g PRO q day Fluid requirements: 30mL/kg ABW 2856mL q day Nutrition Intervention Change Diet Order: Continue cardiac/consistent carbohydrate diet as tolerable . Goal #1 Pt to consume >75% of estimated energy needs during LOS. Follow-Up By: 04/13/22 Additional Comments Monitor PO intake, diet tolerance, and BM.
[2022-04-09] MEDS: MELATONIN 5 MG TAB PO SCH (21:41)
[2022-04-09] MEDS: MIRTAZAPINE 15 MG TAB PO SCH (21:41)
[2022-04-10] MEDS: INSULIN LISPRO 100 UNIT/ML SUB-Q SCH ×5 (00:07→21:11)
--- NOTE | 2022-04-10 08:21 | Progress Note ---
Subjective Date of service: 04/10/22 Principal diagnosis: Bipolar Disorder Subjective Comment: The patient was seen today. He is lying down. He says he's doing okay. The patient says he slept well. He denies SI/HI or hallucinations of any kind. REVIEW OF SYSTEMS Constitutional: Negative for weight loss ENT: Negative for stridor Respiratory: Negative for cough or hemoptysis All other systems reviewed and are negative MENTAL STATUS EXAMINATION General Appearance and Behavior: Age appropriate, wearing appropriate clothes, cooperative, polite with questioning, good eye contact Cooperation: cooperative Psychomotor Behavior: Psychomotor normal Mood: okay Affect and affective range: congruent with stated affect Thought Process: goal directed Thought Content: None Speech: Normal volume, Regular rate and rhythm Suicidal Ideation: Denies Homicidal Ideation: Denies Hallucination: Denies Delusions: None elicited Impulse Control: Limited Insight and Judgment: Limited Memory: Intact Attention: attentive Orientation: Alert and oriented Diagnoses: Bipolar Disorder Treatment Plan Patient admitted for inpatient psychiatric evaluation, medication adjustment and close monitoring The patient's behavior, mood, sleep and appetite will be closely monitored. Patient enrolled in individual and group therapeutic sessions and encouraged to attend. Patient provided with a safe and structured environment. Patient's physical health needs will be addressed by the Hospitalist. Hospitalist Consulted Labs including CBC, CMP, Lipid profile and Hemoglobin A1C levels ordered for baseline reference Social Assessment will be completed and the City Dispatch Supervisor will work with patient and family to ensure a suitable and safe disposition Medication adjustment will be made as clinically indicated Continue current regimen [facility] The patient agreed on the treatment plan, understood the risk, benefit, alternative treatment, potential consequence of no treatment, and gave informed consent. Estimated days: 7 Post hospital care: primary care provider, psychiatric provider Case staffed with Dr. Butler Medications and Allergies Allergies Allergy/AdvReac Type Severity Reaction Status Date / Time No Known Allergies Allergy Unverified 03/30/22 13:15 Home Medications Medication Instructions Recorded Confirmed Last Taken Type Cholecalciferol Vit D3 [Vitamin D3 1,000 unit PO QDAY 03/30/22 03/30/22 Unknown History 1,000 UNIT TAB] Cyanocobalamin [Vitamin B-12] 500 mcg PO DAILY 03/30/22 03/30/22 Unknown History Dapagliflozin Propanediol [Farxiga] 5 mg PO DAILY 03/30/22 03/30/22 Unknown History Divalproex Sodium [Depakote] 500 mg PO BID 03/30/22 03/30/22 Unknown History Melatonin [Melatonin 10MG TAB] 10 mg PO QHS 03/30/22 03/30/22 Unknown History Mirtazapine [Remeron 15mg TAB] 15 mg PO QHS 03/30/22 03/30/22 Unknown History Multivit-Min/Iron Fum/Folic AC 1 each PO DAILY 03/30/22 03/30/22 Unknown History [Darep-Ozrozxg-Sadugzgx Tablet] Paliperidone Palmitate [Invega 156 mg IM QMONTH 03/30/22 03/30/22 Unknown His tory Sustenna] Paliperidone [Invega] 6 mg PO DAILY 03/30/22 03/30/22 Unknown History ProAir HFA Inhaler 90 mcg INHALATION Q8HR PRN 03/30/22 03/30/22 Unknown History Tamsulosin [Flomax] 0.4 mg PO QDAY 03/30/22 03/30/22 Unknown History lisinopriL [Lisinopril] 10 mg PO DAILY 03/30/22 03/30/22 Unknown History Active Meds: Active Medications Albuterol (Albuterol 2.5 Mg/3 Ml Nebu) 2.5 mg IH Q4HRT PRN PRN Reason: Shortness Of Breath Cholecalciferol (Cholecalciferol (Vit D3) 1000 Unit (25 Mcg) Tab) 1,000 unit PO QDAY [facility] Last Admin: 04/09/22 09:05 Dose: 1,000 unit Cyanocobalamin (Cyanocobalamin (Vit B-12) 1000 Mcg Tab) 500 mcg PO DAILY [facility] Last Admin: 04/09/22 09:05 Dose: 500 mcg Dextrose (Dextrose 50% In Water (25gm) 50 Ml Syringe) 50 ml IV Q30MIN PRN; Protocol PRN Reason: Hypoglycemia Divalproex Sodium (Divalproex Dr 500 Mg Tab) 500 mg PO BID [facility] Last Admin: 04/09/22 21:41 Dose: 500 mg Insulin Human Lispro (Insulin Lispro 100 Unit/Ml) 0 unit SUB-Q ACHS [facility]; Protocol Last Admin: 04/10/22 00:07 Dose: 2 unit Lisinopril (Lisinopril 10 Mg Tab) 10 mg PO DAILY [facility] Last Admin: 04/09/22 09:05 Dose: 10 mg Melatonin (Melatonin 5 Mg Tab) 10 mg PO QHS [facility] Last Admin: 04/09/22 21:41 Dose: 10 mg Mirtazapine (Mirtazapine 15 Mg Tab) 15 mg PO QHS [facility] Last Admin: 04/09/22 21:41 Dose: 15 mg Multivitamins/Minerals (Multivitamins,Ther W-Minerals Tab) 1 each PO QDAY [facility] Last Admin: 04/09/22 09:05 Dose: 1 each Paliperidone (Paliperidone Er 3 Mg Tab) 3 mg PO QDAY [facility] Last Admin: 04/09/22 09:05 Dose: 3 mg Tamsulosin HCl (Tamsulosin 0.4 Mg Cap) 0.4 mg PO QDAY [facility] Last Admin: 04/09/22 09:05 Dose: 0.4 mg Results - Results Labs/Vitals: Laboratory Last Values WBC 8.6 K/mm3 (4.5-11.0) 03/30/22 Unknown RBC 5.22 M/mm3 (3.65-5.03) H 03/30/22 Unknown Hgb 15.9 gm/dl (11.8-15.2) H 03/30/22 Unknown Hct 47.8 % (35.5-45.6) H 03/30/22 Unknown MCV 92 fl (84-94) 03/30/22 Unknown MCH 30 pg (28-32) 03/30/22 Unknown MCHC 33 % (32-34) 03/30/22 Unknown RDW 15.6 % (13.2-15.2) H 03/30/22 Unknown Plt Count 347 K/mm3 (140-440) 03/30/22 Unknown Lymph % (Auto) 22.6 % (13.4-35.0) 03/30/22 Unknown [place] % (Auto) 6.5 % (0.0-7.3) 03/30/22 Unknown Eos % (Auto) 1.5 % (0.0-4.3) 03/30/22 Unknown Baso % (Auto) 0.6 % (0.0-1.8) 03/30/22 Unknown Lymph # (Auto) 1.9 K/mm3 (1.2-5.4) 03/30/22 Unknown [place] # (Auto) 0.6 K/mm3 (0.0-0.8) 03/30/22 Unknown Eos # (Auto) 0.1 K/mm3 (0.0-0.4) 03/30/22 Unknown Baso # (Auto) 0.1 K/mm3 (0.0-0.1) 03/30/22 Unknown Seg Neutrophils % 68.8 % (40.0-70.0) 03/30/22 Unknown Seg Neutrophils # 5.9 K/mm3 (1.8-7.7) 03/30/22 Unknown Sodium 137 mmol/L (137-145) 03/30/22 Unknown Potassium 4.7 mmol/L (3.6-5.0) 03/30/22 Unknown Chloride 99.5 mmol/L (98-107) 03/30/22 Unknown Carbon Dioxide 23 mmol/L (22-30) 03/30/22 Unknown Anion Gap 19 mmol/L 03/30/22 Unknown BUN 20 mg/dL (9-20) 03/30/22 Unknown Creatinine 1.0 mg/dL (0.8-1.3) 03/30/22 Unknown Estimated GFR > 60 ml/min 03/30/22 Unknown BUN/Creatinine Ratio 20 % 03/30/22 Unknown Glucose 302 mg/dL (75-100) H 03/30/22 Unknown POC Glucose 219 mg/dL (70-105) H 04/09/22 22:23 Hemoglobin A1c 7.8 % (4-6) H 03/30/22 Unknown Calcium 9.6 mg/dL (8.4-10.2) 03/30/22 Unknown Total Bilirubin 0.40 mg/dL (0.1-1.2) 03/30/22 Unknown AST 18 units/L (5-40) 03/30/22 Unknown ALT 23 units/L (7-56) 03/30/22 Unknown Alkaline Phosphatase 117 units/L (35-129) 03/30/22 Unknown Total Protein 7.4 g/dL (6.3-8.2) 03/30/22 Unknown Albumin 4.5 g/dL (3.9-5) 03/30/22 Unknown Albumin/Globulin Ratio 1.6 % 03/30/22 Unknown Triglycerides 204 mg/dL (2-149) H 03/30/22 Unknown Cholesterol 143 mg/dL (50-199) 03/30/22 Unknown LDL Cholesterol Direct 83 mg/dL (50-130) 03/30/22 Unknown HDL Cholesterol 38 mg/dL (40-59) L 03/30/22 Unknown Cholesterol/HDL Ratio 3.76 % 03/30/22 Unknown TSH 1.930 mlU/mL (0.270-4.200) 03/30/22 Unknown Last Vital Signs Temp 98.3 F 04/09/22 20:00 Pulse 80 04/09/22 20:00 Resp 16 04/09/22 20:00 BP 139/80 04/09/22 20:00 Pulse Ox 96 04/09/22 20:00
[2022-04-10] MEDS: CYANOCOBALAMIN (VIT B-12) 1000 MCG TAB PO SCH (09:39)
[2022-04-10] MEDS: MULTIVITAMINS,THER W-MINERALS TAB PO SCH (09:39)
[2022-04-10] MEDS: DIVALPROEX DR 500 MG TAB PO SCH ×2 (09:39→21:10)
[2022-04-10] MEDS: TAMSULOSIN 0.4 MG CAP PO SCH (09:40)
[2022-04-10] MEDS: PALIPERIDONE ER 3 MG TAB PO SCH (09:40)
[2022-04-10] MEDS: CHOLECALCIFEROL (VIT D3) 1000 UNIT (25 mcg) TAB PO SCH (09:40)
[2022-04-10] MEDS: LISINOPRIL 10 MG TAB PO SCH (09:41)
--- NOTE | 2022-04-10 20:19 | Progress Note ---
Assessment and Plan Assessment and plan: (1) Vascular dementia with behavioral disturbance Verbal for prompting verbal redirection, benzodiazepine therapy as clinically indicated (2) Cerebral atherosclerosis Risk factor reduction, antiplatelet therapy as clinically indicated (3) Hypertension Monitor blood pressure every shift, continue medical management (4) Diabetes Consistent carbohydrate diet, Accu-Chek, insulin protocol, hypoglycemia protocol. (5) BPH (benign prostatic hyperplasia) Continue medical management, supportive care. Outpatient urology follow-up. (6) Asthma Bronchodilator therapy as clinically indicated, supportive care. (7) PTSD (post-traumatic stress disorder) Management per psych (8) Schizophrenia Management per psych (9) Bipolar disorder Cognitive behavioral therapy, management per psych (10) Preventative health care Patient counseled regarding risk factor reduction, increase physical activity discharge, +30 minutes. (11) Advance care planning Disease education conducted, care plan discussed, diagnoses discussed, prognosis discussed. Patient acknowledges understanding and agreement with care plan, +30 minutes. Closely monitor the patient and adjust management as needed Plan of care reviewed with the patient and his nurse Closely monitor blood sugars, reasonable control today Avoid hypoglycemia. DVT prophylaxis; SCDs while resting, ambulate as tolerated Call us with questions History Interval history: I have seen and examined the patient in the day room today Patient's chart, current medications, overnight events reviewed Patient feels better no new complaints Minimally communicative Vital signs reviewed Hospitalist Physical - Constitutional Vitals: Temp Pulse Resp BP Pulse Ox 98.3 F 80 18 139/80 96 04/10/22 09:07 04/10/22 09:41 04/10/22 09:07 04/10/22 09:41 04/10/22 09:07 General appearance: Present: no acute distress, well-nourished, obese - EENT Eyes: Present: PERRL, EOM intact - Neck Neck: Present: supple, normal ROM - Respiratory Respiratory effort: normal Respiratory: bilateral: diminished, negative: rales, rhonchi, wheezing - Cardiovascular Rhythm: regular Heart Sounds: Present: S1 & S2 - Extremities Extremities: no ischemia, No edema - Abdominal General gastrointestinal: soft, non-tender, non-distended, normal bowel sounds - Integumentary Integumentary: Present: clear, warm - Psychiatric Psychiatric: appropriate mood/affect, cooperative - Neurologic Neurologic: CNII-XII intact, moves all extremities Results - Labs CBC & Chem 7: 03/30/22 Unknown 03/30/22 Unknown Labs: Laboratory Last Values WBC 8.6 K/mm3 (4.5-11.0) 03/30/22 Unknown RBC 5.22 M/mm3 (3.65-5.03) H 03/30/22 Unknown Hgb 15.9 gm/dl (11.8-15.2) H 03/30/22 Unknown Hct 47.8 % (35.5-45.6) H 03/30/22 Unknown MCV 92 fl (84-94) 03/30/22 Unknown MCH 30 pg (28-32) 03/30/22 Unknown MCHC 33 % (32-34) 03/30/22 Unknown RDW 15.6 % (13.2-15.2) H 03/30/22 Unknown Plt Count 347 K/mm3 (140-440) 03/30/22 Unknown Lymph % (Auto) 22.6 % (13.4-35.0) 03/30/22 Unknown [place] % (Auto) 6.5 % (0.0-7.3) 03/30/22 Unknown Eos % (Auto) 1.5 % (0.0-4.3) 03/30/22 Unknown Baso % (Auto) 0.6 % (0.0-1.8) 03/30/22 Unknown Lymph # (Auto) 1.9 K/mm3 (1.2-5.4) 03/30/22 Unknown [place] # (Auto) 0.6 K/mm3 (0.0-0.8) 03/30/22 Unknown Eos # (Auto) 0.1 K/mm3 (0.0-0.4) 03/30/22 Unknown Baso # (Auto) 0.1 K/mm3 (0.0-0.1) 03/30/22 Unknown Seg Neutrophils % 68.8 % (40.0-70.0) 03/30/22 Unknown Seg Neutrophils # 5.9 K/mm3 (1.8-7.7) 03/30/22 Unknown Sodium 137 mmol/L (137-145) 03/30/22 Unknown Potassium 4.7 mmol/L (3.6-5.0) 03/30/22 Unknown Chloride 99.5 mmol/L (98-107) 03/30/22 Unknown Carbon Dioxide 23 mmol/L (22-30) 03/30/22 Unknown Anion Gap 19 mmol/L 03/30/22 Unknown BUN 20 mg/dL (9-20) 03/30/22 Unknown Creatinine 1.0 mg/dL (0.8-1.3) 03/30/22 Unknown Estimated GFR > 60 ml/min 03/30/22 Unknown BUN/Creatinine Ratio 20 % 03/30/22 Unknown Glucose 302 mg/dL (75-100) H 03/30/22 Unknown POC Glucose 146 mg/dL (70-105) H 04/10/22 16:44 Hemoglobin A1c 7.8 % (4-6) H 03/30/22 Unknown Calcium 9.6 mg/dL (8.4-10.2) 03/30/22 Unknown Total Bilirubin 0.40 mg/dL (0.1-1.2) 03/30/22 Unknown AST 18 units/L (5-40) 03/30/22 Unknown ALT 23 units/L (7-56) 03/30/22 Unknown Alkaline Phosphatase 117 units/L (35-129) 03/30/22 Unknown Total Protein 7.4 g/dL (6.3-8.2) 03/30/22 Unknown Albumin 4.5 g/dL (3.9-5) 03/30/22 Unknown Albumin/Globulin Ratio 1.6 % 03/30/22 Unknown Triglycerides 204 mg/dL (2-149) H 03/30/22 Unknown Cholesterol 143 mg/dL (50-199) 03/30/22 Unknown LDL Cholesterol Direct 83 mg/dL (50-130) 03/30/22 Unknown HDL Cholesterol 38 mg/dL (40-59) L 03/30/22 Unknown Cholesterol/HDL Ratio 3.76 % 03/30/22 Unknown TSH 1.930 mlU/mL (0.270-4.200) 03/30/22 Unknown Avina/IV: Voiding Method Toilet Active Medications - Current Medications Current Medications: Generic Name Dose Route Start Last Admin Trade Name Freq PRN Reason Stop Dose Admin Albuterol 2.5 mg 03/31/22 11:40 Albuterol 2.5 Mg/3 Ml Nebu IH Q4HRT PRN Shortness Of Breath Cholecalciferol 1,000 unit 03/31/22 14:00 04/10/22 09:40 Cholecalciferol (Vit D3) 1000 Unit (25 Mcg) Tab PO 1,000 unit QDAY SALIMA Administration Cyanocobalamin 500 mcg 04/01/22 10:00 04/10/22 09:39 Cyanocobalamin (Vit B-12) 1000 Mcg Tab PO 500 mcg DAILY SALIMA Administration Dextrose 50 ml 04/08/22 11:43 Dextrose 50% In Water (25gm) 50 Ml Syringe IV Q30MIN PRN Hypoglycemia Protocol Divalproex Sodium 500 mg 03/31/22 22:00 04/10/22 09:[address] 500 Mg Tab PO 500 mg BID SALIMA Administration Insulin Human Lispro 0 unit 04/08/22 16:30 04/10/22 17:07 Insulin Lispro 100 Unit/Ml SUB-Q Not Given ACHS SALIMA Protocol Lisinopril 10 mg 03/31/22 14:00 04/10/22 09:41 Lisinopril 10 Mg Tab PO 10 mg DAILY SALIMA Administration Melatonin 10 mg 03/31/22 22:00 04/09/22 21:41 Melatonin 5 Mg Tab PO 10 mg QHS SALIMA Administration Mirtazapine 15 mg 03/31/22 22:00 04/09/22 21:41 Mirtazapine 15 Mg Tab PO 15 mg QHS SALIMA Administration Multivitamins/Minerals 1 each 04/01/22 10:00 04/10/22 09:39 Multivitamins,Ther W-Minerals Tab PO 1 each QDAY SALIMA Administration Paliperidone 3 mg 04/04/22 10:00 04/10/22 09:40 Paliperidone Er 3 Mg Tab PO 3 mg QDAY SALIMA Administration Tamsulosin HCl 0.4 mg 03/31/22 14:00 04/10/22 09:40 Tamsulosin 0.4 Mg Cap PO 0.4 mg QDAY SALIMA Administration Nutrition/Malnutrition Assess - Dietary Evaluation Nutrition/Malnutrition Findings: Nutrition Notes Start: 04/06/22 16:18 Freq: Status: Active Protocol: Document 04/06/22 16:18 ZANA (Rec: 04/06/22 16:24 ZANA [id number]) Nutrition Notes Need for Assessment generated from: LOS Initial or Follow up Assessment Current Diagnosis Diabetes,Hypertension Current Diet Cardiac/Consistent Carbohydrate Labs/Tests 04/06: Glu 125 TG 204 HDL 38 Pertinent Medications 04/06: Vit D B12 MVI Other medications nutritionally unremarkable. 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 Pt chart reviewed. GI, Integumentary, Respiratory function WNL. Pt ambulating. No information regarding Fructose Loader strength. Pt consuming 100% of meals during admission (x 7 days). Will continue to monitor and follow-up. Percent of energy/protein needs met: Prescribed Cardiac/Consistent Carbohydrates Diet provides for energy/protein needs (1, 977 Kcal/86 g) during LOS. Burn Absent Trauma Absent GI Symptoms None Food Allergy No Skin Integrity/Comment WNL Current % PO Good (75-100%) Minimum of two criteria No Fluid Accumulation N/A Reduced Fructose Loader Strength N/A (non-severe) Protein-Calorie Malnutrition N\A #1 Nutrition Diagnosis No nutrition diagnosis at this time Is patient on ventilator? 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 Goal #1 Pt to consume >75% of estimated energy needs during LOS. Follow-Up By: 04/13/22 Additional Comments Monitor PO intake, diet tolerance, and BM.
[2022-04-10] MEDS: MIRTAZAPINE 15 MG TAB PO SCH (21:10)
[2022-04-10] MEDS: MELATONIN 5 MG TAB PO SCH (21:10)
[2022-04-11] MEDS: INSULIN LISPRO 100 UNIT/ML SUB-Q SCH ×4 (08:00→21:22)
--- NOTE | 2022-04-11 09:25 | Progress Note ---
Assessment and Plan Assessment and plan: Severe agitation; probably secondary to his underlying PTSD, schizophrenia, bipolar Management per psych. (1) Vascular dementia with behavioral disturbance Verbal for prompting verbal redirection, benzodiazepine therapy as clinically indicated (2) Cerebral atherosclerosis Risk factor reduction, antiplatelet therapy as clinically indicated (3) Hypertension Monitor blood pressure every shift, continue medical management (4) Diabetes Consistent carbohydrate diet, Accu-Chek, insulin protocol, hypoglycemia protocol. (5) BPH (benign prostatic hyperplasia) Continue medical management, supportive care. Outpatient urology follow-up. (6) Asthma Bronchodilator therapy as clinically indicated, supportive care. (7) PTSD (post-traumatic stress disorder) Management per psych (8) Schizophrenia Management per psych (9) Bipolar disorder Cognitive behavioral therapy, management per psych (10) Preventative health care Patient counseled regarding risk factor reduction, increase physical activity discharge, +30 minutes. (11) Advance care planning Disease education conducted, care plan discussed, diagnoses discussed, prognosis discussed. Patient acknowledges understanding and agreement with care plan, +30 minutes. Closely monitor the patient and adjust management as needed Plan of care reviewed with the patient and his nurse Closely monitor blood sugars, reasonable control today Avoid hypoglycemia. DVT prophylaxis; SCDs while resting, ambulate as tolerated Call us with questions History Interval history: I have seen and examined the patient in his room this morning Patient's chart and medications reviewed No overnight events reported by the nursing staff When I evaluated the patient patient was very angry and upset And loud, when I asked he was unable to give me the reason Slightly agitated Vital signs reviewed Hospitalist Physical - Physical exam Narrative exam: Could not do the physical exam Patient refused - Constitutional Vitals: Temp Pulse Resp BP Pulse Ox 98.0 F 74 17 144/67 97 04/10/22 19:36 04/10/22 19:36 04/10/22 19:36 04/10/22 19:36 04/10/22 19:36 General appearance: Present: mild distress, well-nourished, obese, other (Agitated) - EENT ENT: other (Did not do the physical exam as patient is uncooperative) Results - Labs CBC & Chem 7: 03/30/22 Unknown 03/30/22 Unknown Labs: Laboratory Last Values WBC 8.6 K/mm3 (4.5-11.0) 03/30/22 Unknown RBC 5.22 M/mm3 (3.65-5.03) H 03/30/22 Unknown Hgb 15.9 gm/dl (11.8-15.2) H 03/30/22 Unknown Hct 47.8 % (35.5-45.6) H 03/30/22 Unknown MCV 92 fl (84-94) 03/30/22 Unknown MCH 30 pg (28-32) 03/30/22 Unknown MCHC 33 % (32-34) 03/30/22 Unknown RDW 15.6 % (13.2-15.2) H 03/30/22 Unknown Plt Count 347 K/mm3 (140-440) 03/30/22 Unknown Lymph % (Auto) 22.6 % (13.4-35.0) 03/30/22 Unknown [place] % (Auto) 6.5 % (0.0-7.3) 03/30/22 Unknown Eos % (Auto) 1.5 % (0.0-4.3) 03/30/22 Unknown Baso % (Auto) 0.6 % (0.0-1.8) 03/30/22 Unknown Lymph # (Auto) 1.9 K/mm3 (1.2-5.4) 03/30/22 Unknown [place] # (Auto) 0.6 K/mm3 (0.0-0.8) 03/30/22 Unknown Eos # (Auto) 0.1 K/mm3 (0.0-0.4) 03/30/22 Unknown Baso # (Auto) 0.1 K/mm3 (0.0-0.1) 03/30/22 Unknown Seg Neutrophils % 68.8 % (40.0-70.0) 03/30/22 Unknown Seg Neutrophils # 5.9 K/mm3 (1.8-7.7) 03/30/22 Unknown Sodium 137 mmol/L (137-145) 03/30/22 Unknown Potassium 4.7 mmol/L (3.6-5.0) 03/30/22 Unknown Chloride 99.5 mmol/L (98-107) 03/30/22 Unknown Carbon Dioxide 23 mmol/L (22-30) 03/30/22 Unknown Anion Gap 19 mmol/L 03/30/22 Unknown BUN 20 mg/dL (9-20) 03/30/22 Unknown Creatinine 1.0 mg/dL (0.8-1.3) 03/30/22 Unknown Estimated GFR > 60 ml/min 03/30/22 Unknown BUN/Creatinine Ratio 20 % 03/30/22 Unknown Glucose 302 mg/dL (75-100) H 03/30/22 Unknown POC Glucose 120 mg/dL (70-105) H 04/11/22 06:30 Hemoglobin A1c 7.8 % (4-6) H 03/30/22 Unknown Calcium 9.6 mg/dL (8.4-10.2) 03/30/22 Unknown Total Bilirubin 0.40 mg/dL (0.1-1.2) 03/30/22 Unknown AST 18 units/L (5-40) 03/30/22 Unknown ALT 23 units/L (7-56) 03/30/22 Unknown Alkaline Phosphatase 117 units/L (35-129) 03/30/22 Unknown Total Protein 7.4 g/dL (6.3-8.2) 03/30/22 Unknown Albumin 4.5 g/dL (3.9-5) 03/30/22 Unknown Albumin/Globulin Ratio 1.6 % 03/30/22 Unknown Triglycerides 204 mg/dL (2-149) H 03/30/22 Unknown Cholesterol 143 mg/dL (50-199) 03/30/22 Unknown LDL Cholesterol Direct 83 mg/dL (50-130) 03/30/22 Unknown HDL Cholesterol 38 mg/dL (40-59) L 03/30/22 Unknown Cholesterol/HDL Ratio 3.76 % 03/30/22 Unknown TSH 1.930 mlU/mL (0.270-4.200) 03/30/22 Unknown Avina/IV: Voiding Method Toilet Active Medications - Current Medications Current Medications: Generic Name Dose Route Start Last Admin Trade Name Freq PRN Reason Stop Dose Admin Albuterol 2.5 mg 03/31/22 11:40 Albuterol 2.5 Mg/3 Ml Nebu IH Q4HRT PRN Shortness Of Breath Cholecalciferol 1,000 unit 03/31/22 14:00 04/10/22 09:40 Cholecalciferol (Vit D3) 1000 Unit (25 Mcg) Tab PO 1,000 unit QDAY SALIMA Administration Cyanocobalamin 500 mcg 04/01/22 10:00 04/10/22 09:39 Cyanocobalamin (Vit B-12) 1000 Mcg Tab PO 500 mcg DAILY SALIMA Administration Dextrose 50 ml 04/08/22 11:43 Dextrose 50% In Water (25gm) 50 Ml Syringe IV Q30MIN PRN Hypoglycemia Protocol Divalproex Sodium 500 mg 03/31/22 22:00 04/10/22 21:[address] 500 Mg Tab PO 500 mg BID SALIMA Administration Insulin Human Lispro 0 unit 04/08/22 16:30 04/10/22 21:11 Insulin Lispro 100 Unit/Ml SUB-Q Not Given ACHS SALIMA Protocol Lisinopril 10 mg 03/31/22 14:00 04/10/22 09:41 Lisinopril 10 Mg Tab PO 10 mg DAILY SALIMA Administration Melatonin 10 mg 03/31/22 22:00 04/10/22 21:10 Melatonin 5 Mg Tab PO 10 mg QHS SALIMA Administration Mirtazapine 15 mg 03/31/22 22:00 04/10/22 21:10 Mirtazapine 15 Mg Tab PO 15 mg QHS SALIMA Administration Multivitamins/Minerals 1 each 04/01/22 10:00 04/10/22 09:39 Multivitamins,Ther W-Minerals Tab PO 1 each QDAY SALIMA Administration Paliperidone 3 mg 04/04/22 10:00 04/10/22 09:40 Paliperidone Er 3 Mg Tab PO 3 mg QDAY SALIMA Administration Tamsulosin HCl 0.4 mg 03/31/22 14:00 04/10/22 09:40 Tamsulosin 0.4 Mg Cap PO 0.4 mg QDAY SALIMA Administration Nutrition/Malnutrition Assess - Dietary Evaluation Nutrition/Malnutrition Findings: Nutrition Notes Start: 04/06/22 16:18 Freq: Status: Active Protocol: Document 04/06/22 16:18 ZANA (Rec: 04/06/22 16:24 ZANA [email or web address]) Nutrition Notes Need for Assessment generated from: LOS Initial or Follow up Assessment Current Diagnosis Diabetes,Hypertension Current Diet Cardiac/Consistent Carbohydrate Labs/Tests 04/06: Glu 125 TG 204 HDL 38 Pertinent Medications 04/06: Vit D B12 MVI Other medications nutritionally unremarkable. Height 5 ft 10 in Weight 95.2 kg [place] Body Weight (kg) 75.45 BMI 30.1 Intake Prior to Admission Good Weight change and time frame No reported unintentional wt loss [employer] Weight Status Obese Subjective/Other Information RD LOS assessment. Pt chart reviewed. GI, Integumentary, Respiratory function WNL. Pt ambulating. No information regarding Pot [place] strength. Pt consuming 100% of meals during admission (x 7 days). Will continue to monitor and follow-up. Percent of energy/protein needs met: Prescribed Cardiac/Consistent Carbohydrates Diet provides for energy/protein needs (1, 977 Kcal/86 g) during LOS. Burn Absent Trauma Absent GI Symptoms None Food Allergy No Skin Integrity/Comment WNL Current % PO Good (75-100%) Minimum of two criteria No Fluid Accumulation N/A Reduced Pot [place] Strength N/A (non-severe) Protein-Calorie Malnutrition N\A #1 Nutrition Diagnosis No nutrition diagnosis at this time Is patient on ventilator? No Is Patient Ambulatory and/or Out of Bed Yes REE-([facility]-ambulatory/OOB) [ 2207.725 [id number]] Calculation Used for Recommendations [facility] Additional Notes 1.0-1.2g/kg ABW 95-114g PRO q day Fluid requirements: 30mL/kg ABW 2856mL q day Nutrition Intervention Change Diet Order: Continue cardiac/consistent carbohydrate diet as tolerable . Goal #1 Pt to consume >75% of estimated energy needs during LOS. Follow-Up By: 04/13/22 Additional Comments Monitor PO intake, diet tolerance, and BM.
--- NOTE | 2022-04-11 09:38 | Progress Note ---
Subjective Date of service: 04/11/22 Principal diagnosis: Bipolar Disorder Subjective Comment: The patient was seen today. He is lying down. He is irritable and says "I've been here 21 days, I'm not talking to anyone right now." I informed the patient that we are trying to find placement for him, and that he has to try to not get so upset about little things. He says "I don't care. I've been here too long." REVIEW OF SYSTEMS Constitutional: Negative for weight loss ENT: Negative for stridor Respiratory: Negative for cough or hemoptysis All other systems reviewed and are negative MENTAL STATUS EXAMINATION General Appearance and Behavior: Age appropriate, wearing appropriate clothes, cooperative, polite with questioning, good eye contact Cooperation: cooperative Psychomotor Behavior: Psychomotor normal Mood: okay Affect and affective range: congruent with stated affect Thought Process: goal directed Thought Content: None Speech: Normal volume, Regular rate and rhythm Suicidal Ideation: Denies Homicidal Ideation: Denies Hallucination: Denies Delusions: None elicited Impulse Control: Limited Insight and Judgment: Limited Memory: Intact Attention: attentive Orientation: Alert and oriented Diagnoses: Bipolar Disorder Treatment Plan Patient admitted for inpatient psychiatric evaluation, medication adjustment and close monitoring The patient's behavior, mood, sleep and appetite will be closely monitored. Patient enrolled in individual and group therapeutic sessions and encouraged to attend. Patient provided with a safe and structured environment. Patient's physical health needs will be addressed by the Hospitalist. Hospitalist Consulted Labs including CBC, CMP, Lipid profile and Hemoglobin A1C levels ordered for baseline reference Social Assessment will be completed and the Automotive Alignment Specialist will work with patient and family to ensure a suitable and safe disposition Medication adjustment will be made as clinically indicated Continue current regimen Usual Wellness Restorationist/Preservation The patient agreed on the treatment plan, understood the risk, benefit, alternative treatment, potential consequence of no treatment, and gave informed consent. Estimated days: 7 Post hospital care: primary care provider, psychiatric provider Case staffed with Dr. Butler Medications and Allergies Allergies Allergy/AdvReac Type Severity Reaction Status Date / Time No Known Allergies Allergy Unverified 03/30/22 13:15 Home Medications Medication Instructions Recorded Confirmed Last Taken Type Cholecalciferol Vit D3 [Vitamin D3 1,000 unit PO QDAY 03/30/22 03/30/22 Unknown History 1,000 UNIT TAB] Cyanocobalamin [Vitamin B-12] 500 mcg PO DAILY 03/30/22 03/30/22 Unknown History Dapagliflozin Propanediol [Farxiga] 5 mg PO DAILY 03/30/22 03/30/22 Unknown History Divalproex Sodium [Depakote] 500 mg PO BID 03/30/22 03/30/22 Unknown History Melatonin [Melatonin 10MG TAB] 10 mg PO QHS 03/30/22 03/30/22 Unknown History Mirtazapine [Remeron 15mg TAB] 15 mg PO QHS 03/30/22 03/30/22 Unknown History Multivit-Min/Iron Fum/Folic AC 1 each PO DAILY 03/30/22 03/30/22 Unknown History [Icrof-Nyunosa-Nzkwrnhn Tablet] Paliperidone Palmitate [Invega 156 mg IM QMONTH 03/30/22 03/30/22 Unknown History Sustenna] Paliperidone [Invega] 6 mg PO DAILY 03/30/22 03/30/22 Unknown History ProAir HFA Inhaler 90 mcg INHALATION Q8HR PRN 03/30/22 03/30/22 Unknown History Tamsulosin [Flomax] 0.4 mg PO QDAY 03/30/22 03/30/22 Unknown History lisinopriL [Lisinopril] 10 mg PO DAILY 03/30/22 03/30/22 Unknown History Active Meds: Active Medications Albuterol (Albuterol 2.5 Mg/3 Ml Nebu) 2.5 mg IH Q4HRT PRN PRN Reason: Shortness Of Breath Cholecalciferol (Cholecalciferol (Vit D3) 1000 Unit (25 Mcg) Tab) 1,000 unit PO QDAY [facility] Last Admin: 04/10/22 09:40 Dose: 1,000 unit Cyanocobalamin (Cyanocobalamin (Vit B-12) 1000 Mcg Tab) 500 mcg PO DAILY [facility] Last Admin: 04/10/22 09:39 Dose: 500 mcg Dextrose (Dextrose 50% In Water (25gm) 50 Ml Syringe) 50 ml IV Q30MIN PRN; Protocol PRN Reason: Hypoglycemia Divalproex Sodium (Divalproex Dr 500 Mg Tab) 500 mg PO BID [facility] Last Admin: 04/10/22 21:10 Dose: 500 mg Insulin Human Lispro (Insulin Lispro 100 Unit/Ml) 0 unit SUB-Q ACHS SALIMA; Alfonzo col Last Admin: 04/11/22 08:00 Dose: Not Given Lisinopril (Lisinopril 10 Mg Tab) 10 mg PO DAILY [facility] Last Admin: 04/10/22 09:41 Dose: 10 mg Melatonin (Melatonin 5 Mg Tab) 10 mg PO QHS [facility] Last Admin: 04/10/22 21:10 Dose: 10 mg Mirtazapine (Mirtazapine 15 Mg Tab) 15 mg PO QHS [facility] Last Admin: 04/10/22 21:10 Dose: 15 mg Multivitamins/Minerals (Multivitamins,Ther W-Minerals Tab) 1 each PO QDAY [facility] Last Admin: 04/10/22 09:39 Dose: 1 each Paliperidone (Paliperidone Er 3 Mg Tab) 3 mg PO QDAY [facility] Last Admin: 04/10/22 09:40 Dose: 3 mg Tamsulosin HCl (Tamsulosin 0.4 Mg Cap) 0.4 mg PO QDAY [facility] Last Admin: 04/10/22 09:40 Dose: 0.4 mg Results - Results Labs/Vitals: Laboratory Last Values WBC 8.6 K/mm3 (4.5-11.0) 03/30/22 Unknown RBC 5.22 M/mm3 (3.65-5.03) H 03/30/22 Unknown Hgb 15.9 gm/dl (11.8-15.2) H 03/30/22 Unknown Hct 47.8 % (35.5-45.6) H 03/30/22 Unknown MCV 92 fl (84-94) 03/30/22 Unknown MCH 30 pg (28-32) 03/30/22 Unknown MCHC 33 % (32-34) 03/30/22 Unknown RDW 15.6 % (13.2-15.2) H 03/30/22 Unknown Plt Count 347 K/mm3 (140-440) 03/30/22 Unknown Lymph % (Auto) 22.6 % (13.4-35.0) 03/30/22 Unknown [place] % (Auto) 6.5 % (0.0-7.3) 03/30/22 Unknown Eos % (Auto) 1.5 % (0.0-4.3) 03/30/22 Unknown Baso % (Auto) 0.6 % (0.0-1.8) 03/30/22 Unknown Lymph # (Auto) 1.9 K/mm3 (1.2-5.4) 03/30/22 Unknown [place] # (Auto) 0.6 K/mm3 (0.0-0.8) 03/30/22 Unknown Eos # (Auto) 0.1 K/mm3 (0.0-0.4) 03/30/22 Unknown Baso # (Auto) 0.1 K/mm3 (0.0-0.1) 03/30/22 Unknown Seg Neutrophils % 68.8 % (40.0-70.0) 03/30/22 Unknown Seg Neutrophils # 5.9 K/mm3 (1.8-7.7) 03/30/22 Unknown Sodium 137 mmol/L (137-145) 03/30/22 Unknown Potassium 4.7 mmol/L (3.6-5.0) 03/30/22 Unknown Chloride 99.5 mmol/L (98-107) 03/30/22 Unknown Carbon Dioxide 23 mmol/L (22-30) 03/30/22 Unknown Anion Gap 19 mmol/L 03/30/22 Unknown BUN 20 mg/dL (9-20) 03/30/22 Unknown Creatinine 1.0 mg/dL (0.8-1.3) 03/30/22 Unknown Estimated GFR > 60 ml/min 03/30/22 Unknown BUN/Creatinine Ratio 20 % 03/30/22 Unknown Glucose 302 mg/dL (75-100) H 03/30/22 Unknown POC Glucose 120 mg/dL (70-105) H 04/11/22 06:30 Hemoglobin A1c 7.8 % (4-6) H 03/30/22 Unknown Calcium 9.6 mg/dL (8.4-10.2) 03/30/22 Unknown Total Bilirubin 0.40 mg/dL (0.1-1.2) 03/30/22 Unknown AST 18 units/L (5-40) 03/30/22 Unknown ALT 23 units/L (7-56) 03/30/22 Unknown Alkaline Phosphatase 117 units/L (35-129) 03/30/22 Unknown Total Protein 7.4 g/dL (6.3-8.2) 03/30/22 Unknown Albumin 4.5 g/dL (3.9-5) 03/30/22 Unknown Albumin/Globulin Ratio 1.6 % 03/30/22 Unknown Triglycerides 204 mg/dL (2-149) H 03/30/22 Unknown Cholesterol 143 mg/dL (50-199) 03/30/22 Unknown LDL Cholesterol Direct 83 mg/dL (50-130) 03/30/22 Unknown HDL Cholesterol 38 mg/dL (40-59) L 03/30/22 Unknown Cholesterol/HDL Ratio 3.76 % 03/30/22 Unknown TSH 1.930 mlU/mL (0.270-4.200) 03/30/22 Unknown Last Vital Signs Temp 98.0 F 04/10/22 19:36 Pulse 74 04/10/22 19:36 Resp 17 04/10/22 19:36 BP 144/67 04/10/22 19:36 Pulse Ox 97 04/10/22 19:36
[2022-04-11] MEDS: TAMSULOSIN 0.4 MG CAP PO SCH (10:12)
[2022-04-11] MEDS: DIVALPROEX DR 500 MG TAB PO SCH ×2 (10:12→21:22)
[2022-04-11] MEDS: PALIPERIDONE ER 3 MG TAB PO SCH (10:12)
[2022-04-11] MEDS: CYANOCOBALAMIN (VIT B-12) 1000 MCG TAB PO SCH (10:13)
[2022-04-11] MEDS: MULTIVITAMINS,THER W-MINERALS TAB PO SCH (10:13)
[2022-04-11] MEDS: CHOLECALCIFEROL (VIT D3) 1000 UNIT (25 mcg) TAB PO SCH (10:13)
[2022-04-11] MEDS: LISINOPRIL 10 MG TAB PO SCH (10:13)
[2022-04-11] MEDS: MIRTAZAPINE 15 MG TAB PO SCH (21:22)
[2022-04-11] MEDS: MELATONIN 5 MG TAB PO SCH (21:22)
[2022-04-12] MEDS: INSULIN LISPRO 100 UNIT/ML SUB-Q SCH ×4 (08:10→22:19)
--- NOTE | 2022-04-12 08:22 | Progress Note ---
Subjective Date of service: 04/12/22 Principal diagnosis: Bipolar Disorder Subjective Comment: The patient was seen today. He is much calmer today than yesterday. He says he is ready to go and doesn't want to go to another facility. The patient denies SI/HI or hallucinations. He is awaiting placement. REVIEW OF SYSTEMS Constitutional: Negative for weight loss ENT: Negative for stridor Respiratory: Negative for cough or hemoptysis All other systems reviewed and are negative MENTAL STATUS EXAMINATION General Appearance and Behavior: Age appropriate, wearing appropriate clothes, cooperative, polite with questioning, good eye contact Cooperation: cooperative Psychomotor Behavior: Psychomotor normal Mood: okay Affect and affective range: congruent with stated affect Thought Process: goal directed Thought Content: None Speech: Normal volume, Regular rate and rhythm Suicidal Ideation: Denies Homicidal Ideation: Denies Hallucination: Denies Delusions: None elicited Impulse Control: Limited Insight and Judgment: Limited Memory: Intact Attention: attentive Orientation: Alert and oriented Diagnoses: Bipolar Disorder Treatment Plan Patient admitted for inpatient psychiatric evaluation, medication adjustment and close monitoring The patient's behavior, mood, sleep and appetite will be closely monitored. Patient enrolled in individual and group therapeutic sessions and encouraged to attend. Patient provided with a safe and structured environment. Patient's physical health needs will be addressed by the Hospitalist. Hospitalist Consulted Labs including CBC, CMP, Lipid profile and Hemoglobin A1C levels ordered for baseline reference Social Assessment will be completed and the Refrigeration Tech will work with patient and family to ensure a suitable and safe disposition Medication adjustment will be made as clinically indicated Continue current regimen Usual Wellness Jainism/Preservation The patient agreed on the treatment plan, understood the risk, benefit, alternative treatment, potential consequence of no treatment, and gave informed consent. Estimated days: 7 Post hospital care: primary care provider, psychiatric provider Case staffed with Dr. Butler Medications and Allergies Allergies Allergy/AdvReac Type Severity Reaction Status Date / Time No Known Allergies Allergy Unverified 03/30/22 13:15 Home Medications Medication Instructions Recorded Confirmed Last Taken Type Cholecalciferol Vit D3 [Vitamin D3 1,000 unit PO QDAY 03/30/22 03/30/22 Unknown History 1,000 UNIT TAB] Cyanocobalamin [Vitamin B-12] 500 mcg PO DAILY 03/30/22 03/30/22 Unknown History Dapagliflozin Propanediol [Farxiga] 5 mg PO DAILY 03/30/22 03/30/22 Unknown History Divalproex Sodium [Depakote] 500 mg PO BID 03/30/22 03/30/22 Unknown History Melatonin [Melatonin 10MG TAB] 10 mg PO QHS 03/30/22 03/30/22 Unknown History Mirtazapine [Remeron 15mg TAB] 15 mg PO QHS 03/30/22 03/30/22 Unknown History Multivit-Min/Iron Fum/Folic AC 1 each PO DAILY 03/30/22 03/30/22 Unknown History [Jdsip-Xvrxmgj-Jycgyhhp Tablet] Paliperidone Palmitate [Invega 156 mg IM QMONTH 03/30/22 03/30/22 Unknown History Sustenna] Paliperidone [Invega] 6 mg PO DAILY 03/30/22 03/30/22 Unknown History ProAir HFA Inhaler 90 mcg INHALATION Q8HR PRN 03/30/22 03/30/22 Unknown History Tamsulosin [Flomax] 0.4 mg PO QDAY 03/30/22 03/30/22 Unknown History lisinopriL [Lisinopril] 10 mg PO DAILY 03/30/22 03/30/22 Unknown History Active Meds: Active Medications Albuterol (Albuterol 2.5 Mg/3 Ml Nebu) 2.5 mg IH Q4HRT PRN PRN Reason: Shortness Of Breath Cholecalciferol (Cholecalciferol (Vit D3) 1000 Unit (25 Mcg) Tab) 1,000 unit PO QDAY [facility] Last Admin: 04/11/22 10:13 Dose: Not Given Cyanocobalamin (Cyanocobalamin (Vit B-12) 1000 Mcg Tab) 500 mcg PO DAILY [facility] Last Admin: 04/11/22 10:13 Dose: Not Given Dextrose (Dextrose 50% In Water (25gm) 50 Ml Syringe) 50 ml IV Q30MIN PRN; Protocol PRN Reason: Hypoglycemia Divalproex Sodium (Divalproex Dr 500 Mg Tab) 500 mg PO BID [facility] Last Admin: 04/11/22 21:22 Dose: 500 mg Insulin Human Lispro (Insulin Lispro 100 Unit/Ml) 0 unit SUB-Q ACHS [facility]; Protocol Last Admin: 04/12/22 08:10 Dose: Not Given Lisinopril (Lisinopril 10 Mg Tab) 10 mg PO DAILY [facility] Last Admin: 04/11/22 10:13 Dose: Not Given Melatonin (Melatonin 5 Mg Tab) 10 mg PO QHS [facility] Last Admin: 04/11/22 21:22 Dose: 10 mg Mirtazapine (Mirtazapine 15 Mg Tab) 15 mg PO QHS [facility] Last Admin: 04/11/22 21:22 Dose: 15 mg Multivitamins/Minerals (Multivitamins,Ther W-Minerals Tab) 1 each PO QDAY [facility] Last Admin: 04/11/22 10:13 Dose: Not Given Paliperidone (Paliperidone Er 3 Mg Tab) 3 mg PO QDAY [facility] Last Admin: 04/11/22 10:12 Dose: Not Given Tamsulosin HCl (Tamsulosin 0.4 Mg Cap) 0.4 mg PO QDAY [facility] Last Admin: 04/11/22 10:12 Dose: Not Given Results - Results Labs/Vitals: Laboratory Last Values WBC 8.6 K/mm3 (4.5-11.0) 03/30/22 Unknown RBC 5.22 M/mm3 (3.65-5.03) H 03/30/22 Unknown Hgb 15.9 gm/dl (11.8-15.2) H 03/30/22 Unknown Hct 47.8 % (35.5-45.6) H 03/30/22 Unknown MCV 92 fl (84-94) 03/30/22 Unknown MCH 30 pg (28-32) 03/30/22 Unknown MCHC 33 % (32-34) 03/30/22 Unknown RDW 15.6 % (13.2-15.2) H 03/30/22 Unknown Plt Count 347 K/mm3 (140-440) 03/30/22 Unknown Lymph % (Auto) 22.6 % (13.4-35.0) 03/30/22 Unknown [place] % (Auto) 6.5 % (0.0-7.3) 03/30/22 Unknown Eos % (Auto) 1.5 % (0.0-4.3) 03/30/22 Unknown Baso % (Auto) 0.6 % (0.0-1.8) 03/30/22 Unknown Lymph # (Auto) 1.9 K/mm3 (1.2-5.4) 03/30/22 Unknown [place] # (Auto) 0.6 K/mm3 (0.0-0.8) 03/30/22 Unknown Eos # (Auto) 0.1 K/mm3 (0.0-0.4) 03/30/22 Unknown Baso # (Auto) 0.1 K/mm3 (0.0-0.1) 03/30/22 Unknown Seg Neutrophils % 68.8 % (40.0-70.0) 03/30/22 Unknown Seg Neutrophils # 5.9 K/mm3 (1.8-7.7) 03/30/22 Unknown Sodium 137 mmol/L (137-145) 03/30/22 Unknown Potassium 4.7 mmol/L (3.6-5.0) 03/30/22 Unknown Chloride 99.5 mmol/L (98-107) 03/30/22 Unknown Carbon Dioxide 23 mmol/L (22-30) 03/30/22 Unknown Anion Gap 19 mmol/L 03/30/22 Unknown BUN 20 mg/dL (9-20) 03/30/22 Unknown Creatinine 1.0 mg/dL (0.8-1.3) 03/30/22 Unknown Estimated GFR > 60 ml/min 03/30/22 Unknown BUN/Creatinine Ratio 20 % 03/30/22 Unknown Glucose 302 mg/dL (75-100) H 03/30/22 Unknown POC Glucose 130 mg/dL (70-105) H 04/12/22 06:41 Hemoglobin A1c 7.8 % (4-6) H 03/30/22 Unknown Calcium 9.6 mg/dL (8.4-10.2) 03/30/22 Unknown Total Bilirubin 0.40 mg/dL (0.1-1.2) 03/30/22 Unknown AST 18 units/L (5-40) 03/30/22 Unknown ALT 23 units/L (7-56) 03/30/22 Unknown Alkaline Phosphatase 117 units/L (35-129) 03/30/22 Unknown Total Protein 7.4 g/dL (6.3-8.2) 03/30/22 Unknown Albumin 4.5 g/dL (3.9-5) 03/30/22 Unknown Albumin/Globulin Ratio 1.6 % 03/30/22 Unknown Triglycerides 204 mg/dL (2-149) H 03/30/22 Unknown Cholesterol 143 mg/dL (50-199) 03/30/22 Unknown LDL Cholesterol Direct 83 mg/dL (50-130) 03/30/22 Unknown HDL Cholesterol 38 mg/dL (40-59) L 03/30/22 Unknown Cholesterol/HDL Ratio 3.76 % 03/30/22 Unknown TSH 1.930 mlU/mL (0.270-4.200) 03/30/22 Unknown Last Vital Signs Temp 98.8 F 04/11/22 19:46 Pulse 69 04/11/22 19:46 Resp 17 04/11/22 19:46 BP 118/62 04/11/22 19:46 Pulse Ox 94 04/11/22 19:46
[2022-04-12] MEDS: TAMSULOSIN 0.4 MG CAP PO SCH (09:41)
[2022-04-12] MEDS: LISINOPRIL 10 MG TAB PO SCH (09:41)
[2022-04-12] MEDS: CYANOCOBALAMIN (VIT B-12) 1000 MCG TAB PO SCH (09:41)
[2022-04-12] MEDS: DIVALPROEX DR 500 MG TAB PO SCH ×2 (09:41→22:11)
[2022-04-12] MEDS: MULTIVITAMINS,THER W-MINERALS TAB PO SCH (09:42)
[2022-04-12] MEDS: PALIPERIDONE ER 3 MG TAB PO SCH (09:42)
[2022-04-12] MEDS: CHOLECALCIFEROL (VIT D3) 1000 UNIT (25 mcg) TAB PO SCH (09:42)
--- NOTE | 2022-04-12 18:44 | Progress Note ---
Assessment and Plan Assessment and plan: Assessment and plan: Severe agitation; probably secondary to his underlying PTSD, schizophrenia, bipolar Management per psych. --Vascular dementia with behavioral disturbance Verbal for prompting verbal redirection, benzodiazepine therapy as clinically indicated Supportive care -- Cerebral atherosclerosis Risk factor reduction, antiplatelet therapy as clinically indicated Encouraged to take part in activities --Hypertension Monitor blood pressure every shift, continue medical management --Type II diabetes Accu-Cheks sliding scale coverage ADA diet insulin as needed --History of BPH (benign prostatic hyperplasia) Continue current management, follow-up with urology upon discharge --History of bronchial asthma Bronchodilator therapy as clinically indicated, supportive care. -- PTSD (post-traumatic stress disorder) Management per psych --Schizophrenia Management per psych -- Bipolar disorder Cognitive behavioral therapy, management per psych -- Preventative health care Patient counseled regarding risk factor reduction, increase physical activity discharge, +30 minutes. --Advance care planning Disease education conducted, care plan discussed, diagnoses discussed, prognosis discussed. Patient acknowledges understanding and agreement with care plan, +30 minutes. Closely monitor the patient and adjust management as needed Plan of care reviewed with the patient and his nurse Closely monitor blood sugars, reasonable control today Avoid hypoglycemia. DVT prophylaxis; SCDs while resting, ambulate as tolerated Plan of care reviewed with the patient and his nurse Thank you for this consult Follow the patient along with you Call us with questions History Interval history: i have seen and examined the patient in his room this afternoon Patient's chart and medications reviewed Patient feels better yesterday he was angry and upset and was allowed Today he apologized to me for being rude yesterday Anxious to go home Vital signs reviewed Hospitalist Physical - Constitutional Vitals: Temp Pulse Resp BP Pulse Ox 98.8 F 78 17 153/81 94 04/11/22 19:46 04/12/22 09:41 04/11/22 19:46 04/12/22 09:41 04/11/22 19:46 General appearance: Present: mild distress, well-nourished, obese, other (Agitated) - EENT Eyes: Present: PERRL, EOM intact - Neck Neck: Present: supple, normal ROM - Respiratory Respiratory effort: normal Respiratory: bilateral: diminished, negative: rales, rhonchi, wheezing - Cardiovascular Rhythm: regular Heart Sounds: Present: S1 & S2 - Extremities Extremities: no ischemia, No edema - Abdominal General gastrointestinal: soft, non-tender, non-distended, normal bowel sounds - Integumentary Integumentary: Present: clear, warm - Psychiatric Psychiatric: appropriate mood/affect, cooperative - Neurologic Neurologic: CNII-XII intact, moves all extremities Results - Labs CBC & Chem 7: 03/30/22 Unknown 03/30/22 Unknown Labs: Laboratory Last Values WBC 8.6 K/mm3 (4.5-11.0) 03/30/22 Unknown RBC 5.22 M/mm3 (3.65-5.03) H 03/30/22 Unknown Hgb 15.9 gm/dl (11.8-15.2) H 03/30/22 Unknown Hct 47.8 % (35.5-45.6) H 03/30/22 Unknown MCV 92 fl (84-94) 03/30/22 Unknown MCH 30 pg (28-32) 03/30/22 Unknown MCHC 33 % (32-34) 03/30/22 Unknown RDW 15.6 % (13.2-15.2) H 03/30/22 Unknown Plt Count 347 K/mm3 (140-440) 03/30/22 Unknown Lymph % (Auto) 22.6 % (13.4-35.0) 03/30/22 Unknown [place] % (Auto) 6.5 % (0.0-7.3) 03/30/22 Unknown Eos % (Auto) 1.5 % (0.0-4.3) 03/30/22 Unknown Baso % (Auto) 0.6 % (0.0-1.8) 03/30/22 Unknown Lymph # (Auto) 1.9 K/mm3 (1.2-5.4) 03/30/22 Unknown [place] # (Auto) 0.6 K/mm3 (0.0-0.8) 03/30/22 Unknown Eos # (Auto) 0.1 K/mm3 (0.0-0.4) 03/30/22 Unknown Baso # (Auto) 0.1 K/mm3 (0.0-0.1) 03/30/22 Unknown Seg Neutrophils % 68.8 % (40.0-70.0) 03/30/22 Unknown Seg Neutrophils # 5.9 K/mm3 (1.8-7.7) 03/30/22 Unknown Sodium 137 mmol/L (137-145) 03/30/22 Unknown Potassium 4.7 mmol/L (3.6-5.0) 03/30/22 Unknown Chloride 99.5 mmol/L (98-107) 03/30/22 Unknown Carbon Dioxide 23 mmol/L (22-30) 03/30/22 Unknown Anion Gap 19 mmol/L 03/30/22 Unknown BUN 20 mg/dL (9-20) 03/30/22 Unknown Creatinine 1.0 mg/dL (0.8-1.3) 03/30/22 Unknown Estimated GFR > 60 ml/min 03/30/22 Unknown BUN/Creatinine Ratio 20 % 03/30/22 Unknown Glucose 302 mg/dL (75-100) H 03/30/22 Unknown POC Glucose 130 mg/dL (70-105) H 04/12/22 06:41 Hemoglobin A1c 7.8 % (4-6) H 03/30/22 Unknown Calcium 9.6 mg/dL (8.4-10.2) 03/30/22 Unknown Total Bilirubin 0.40 mg/dL (0.1-1.2) 03/30/22 Unknown AST 18 units/L (5-40) 03/30/22 Unknown ALT 23 units/L (7-56) 03/30/22 Unknown Alkaline Phosphatase 117 units/L (35-129) 03/30/22 Unknown Total Protein 7.4 g/dL (6.3-8.2) 03/30/22 Unknown Albumin 4.5 g/dL (3.9-5) 03/30/22 Unknown Albumin/Globulin Ratio 1.6 % 03/30/22 Unknown Triglycerides 204 mg/dL (2-149) H 03/30/22 Unknown Cholesterol 143 mg/dL (50-199) 03/30/22 Unknown LDL Cholesterol Direct 83 mg/dL (50-130) 03/30/22 Unknown HDL Cholesterol 38 mg/dL (40-59) L 03/30/22 Unknown Cholesterol/HDL Ratio 3.76 % 03/30/22 Unknown TSH 1.930 mlU/mL (0.270-4.200) 03/30/22 Unknown Avina/IV: Voiding Method Toilet Active Medications - Current Medications Current Medications: Generic Name Dose Route Start Last Admin Trade Name Freq PRN Reason Stop Dose Admin Albuterol 2.5 mg 03/31/22 11:40 Albuterol 2.5 Mg/3 Ml Nebu IH Q4HRT PRN Shortness Of Breath Cholecalciferol 1,000 unit 03/31/22 14:00 04/12/22 09:42 Cholecalciferol (Vit D3) 1000 Unit (25 Mcg) Tab PO 1,000 unit QDAY SALIMA Administration Cyanocobalamin 500 mcg 04/01/22 10:00 04/12/22 09:41 Cyanocobalamin (Vit B-12) 1000 Mcg Tab PO 500 mcg DAILY SALIAM Administration Dextrose 50 ml 04/08/22 11:43 Dextrose 50% In Water (25gm) 50 Ml Syringe IV Q30MIN PRN Hypoglycemia Protocol Divalproex Sodium 500 mg 03/31/22 22:00 04/12/22 09:[address] 500 Mg Tab PO 500 mg BID SALIMA Administration Insulin Human Lispro 0 unit 04/08/22 16:30 04/12/22 17:25 Insulin Lispro 100 Unit/Ml SUB-Q 2 unit ACHS SALIMA Administration Protocol Lisinopril 10 mg 03/31/22 14:00 04/12/22 09:41 Lisinopril 10 Mg Tab PO 10 mg DAILY SALIMA Administration Melatonin 10 mg 03/31/22 22:00 04/11/22 21:22 Melatonin 5 Mg Tab PO 10 mg QHS SALIMA Administration Mirtazapine 15 mg 03/31/22 22:00 04/11/22 21:22 Mirtazapine 15 Mg Tab PO 15 mg QHS SALIMA Administration Multivitamins/Minerals 1 each 04/01/22 10:00 04/12/22 09:42 Multivitamins,Ther W-Minerals Tab PO 1 each QDAY SALIMA Administration Paliperidone 3 mg 04/04/22 10:00 04/12/22 09:42 Paliperidone Er 3 Mg Tab PO 3 mg QDAY SALIMA Administration Tamsulosin HCl 0.4 mg 03/31/22 14:00 04/12/22 09:41 Tamsulosin 0.4 Mg Cap PO 0.4 mg QDAY SALIMA Administration Nutrition/Malnutrition Assess - Dietary Evaluation Nutrition/Malnutrition Findings: Nutrition Notes Start: 04/06/22 16:18 Freq: Status: Active Protocol: Document 04/06/22 16:18 ZANA (Rec: 04/06/22 16:24 ZANA [id number]) Nutrition Notes Need for Assessment generated from: LOS Initial or Follow up Assessment Current Diagnosis Diabetes,Hypertension Current Diet Cardiac/Consistent Carbohydrate Labs/Tests 04/06: Glu 125 TG 204 HDL 38 Pertinent Medications 04/06: Vit D B12 MVI Other medications nutritionally unremarkable. 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 Pt chart reviewed. GI, Integumentary, Respiratory function WNL. Pt ambulating. 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 Pt consuming 100% of meals during admission (x 7 days). Will continue to monitor and follow-up. Percent of energy/protein needs met: Prescribed Cardiac/Consistent Carbohydrates Diet provides for energy/protein needs (1, 977 Kcal/86 g) during LOS. 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 No Is Patient Ambulatory and/or Out of Bed Yes REE-([facility]-ambulatory/OOB) [ 2207.725 [id number]] Calculation Used for Recommendations [facility] Additional Notes 1.0-1.2g/kg ABW 95-114g PRO q day Fluid requirements: 30mL/kg ABW 2856mL q day Nutrition Intervention Change Diet Order: Continue cardiac/consistent carbohydrate diet as tolerable . Goal #1 Pt to consume >75% of estimated energy needs during LOS. Follow-Up By: 04/13/22 Additional Comments Monitor PO intake, diet tolerance, and BM.
[2022-04-12] MEDS: MIRTAZAPINE 15 MG TAB PO SCH (22:11)
[2022-04-12] MEDS: MELATONIN 5 MG TAB PO SCH (22:11)
[2022-04-13] MEDS: INSULIN LISPRO 100 UNIT/ML SUB-Q SCH ×4 (08:00→22:02)
--- NOTE | 2022-04-13 08:46 | Progress Note ---
Subjective Date of service: 04/13/22 Principal diagnosis: Bipolar Disorder Subjective Comment: The patient was seen today. He is eating breakfast. He denies SI/HI or hallucinations. He says he is ready to go. The patient is clear from a psych standpoint. He is awaiting placement to ensure safety and continuity of mental wellness. REVIEW OF SYSTEMS Constitutional: Negative for weight loss ENT: Negative for stridor Respiratory: Negative for cough or hemoptysis All other systems reviewed and are negative MENTAL STATUS EXAMINATION General Appearance and Behavior: Age appropriate, wearing appropriate clothes, cooperative, polite with questioning, good eye contact Cooperation: cooperative Psychomotor Behavior: Psychomotor normal Mood: okay Affect and affective range: congruent with stated affect Thought Process: goal directed Thought Content: None Speech: Normal volume, Regular rate and rhythm Suicidal Ideation: Denies Homicidal Ideation: Denies Hallucination: Denies Delusions: None elicited Impulse Control: Limited Insight and Judgment: Limited Memory: Intact Attention: attentive Orientation: Alert and oriented Diagnoses: Bipolar Disorder Treatment Plan Patient admitted for inpatient psychiatric evaluation, medication adjustment and close monitoring The patient's behavior, mood, sleep and appetite will be closely monitored. Patient enrolled in individual and group therapeutic sessions and encouraged to attend. Patient provided with a safe and structured environment. Patient's physical health needs will be addressed by the Hospitalist. Hospitalist Consulted Labs including CBC, CMP, Lipid profile and Hemoglobin A1C levels ordered for baseline reference Social Assessment will be completed and the Office Rental Clerk will work with patient and family to ensure a suitable and safe disposition Medication adjustment will be made as clinically indicated Continue current regimen Usual Wellness Jew/Preservation The patient agreed on the treatment plan, understood the risk, benefit, alternative treatment, potential consequence of no treatment, and gave informed consent. Estimated days: 7 Post hospital care: primary care provider, psychiatric provider Case staffed with Dr. Butler Medications and Allergies Allergies Allergy/AdvReac Type Severity Reaction Status Date / Time No Known Allergies Allergy Unverified 03/30/22 13:15 Home Medications Medication Instructions Recorded Confirmed Last Taken Type Cholecalciferol Vit D3 [Vitamin D3 1,000 unit PO QDAY 03/30/22 03/30/22 Unknown History 1,000 UNIT TAB] Cyanocobalamin [Vitamin B-12] 500 mcg PO DAILY 03/30/22 03/30/22 Unknown History Dapagliflozin Propanediol [Farxiga] 5 mg PO DAILY 03/30/22 03/30/22 Unknown History Divalproex Sodium [Depakote] 500 mg PO BID 03/30/22 03/30/22 Unknown History Melatonin [Melatonin 10MG TAB] 10 mg PO QHS 03/30/22 03/30/22 Unknown History Mirtazapine [Remeron 15mg TAB] 15 mg PO QHS 03/30/22 03/30/22 Unknown History Multivit-Min/Iron Fum/Folic AC 1 each PO DAILY 03/30/22 03/30/22 Unknown History [Hlvtn-Waxjetj-Jrzhkpuk Tablet] Paliperidone Palmitate [Invega 156 mg IM QMONTH 03/30/22 03/30/22 Unknown History Sustenna] Paliperidone [Invega] 6 mg PO DAILY 03/30/22 03/30/22 Unknown History ProAir HFA Inhaler 90 mcg INHALATION Q8HR PRN 03/30/22 03/30/22 Unknown History Tamsulosin [Flomax] 0.4 mg PO QDAY 03/30/22 03/30/22 Unknown History lisinopriL [Lisinopril] 10 mg PO DAILY 03/30/22 03/30/22 Unknown History Active Meds: Active Medications Albuterol (Albuterol 2.5 Mg/3 Ml Nebu) 2.5 mg IH Q4HRT PRN PRN Reason: Shortness Of Breath Cholecalciferol (Cholecalciferol (Vit D3) 1000 Unit (25 Mcg) Tab) 1,000 unit PO QDAY [facility] Last Admin: 04/12/22 09:42 Dose: 1,000 unit Cyanocobalamin (Cyanocobalamin (Vit B-12) 1000 Mcg Tab) 500 mcg PO DAILY [facility] Last Admin: 04/12/22 09:41 Dose: 500 mcg Dextrose (Dextrose 50% In Water (25gm) 50 Ml Syringe) 50 ml IV Q30MIN PRN; Protocol PRN Reason: Hypoglycemia Divalproex Sodium (Divalproex Dr 500 Mg Tab) 500 mg PO BID [facility] Last Admin: 04/12/22 22:11 Dose: 500 mg Insulin Human Lispro (Insulin Lispro 100 Unit/Ml) 0 unit SUB-Q ACHS [facility]; Protocol Last Admin: 04/13/22 08:00 Dose: Not Given Lisinopril (Lisinopril 10 Mg Tab) 10 mg PO DAILY [facility] Last Admin: 04/12/22 09:41 Dose: 10 mg Melatonin (Melatonin 5 Mg Tab) 10 mg PO QHS [facility] Last Admin: 04/12/22 22:11 Dose: 10 mg Mirtazapine (Mirtazapine 15 Mg Tab) 15 mg PO QHS [facility] Last Admin: 04/12/22 22:11 Dose: 15 mg Multivitamins/Minerals (Multivitamins,Ther W-Minerals Tab) 1 each PO QDAY [facility] Last Admin: 04/12/22 09:42 Dose: 1 each Paliperidone (Paliperidone Er 3 Mg Tab) 3 mg PO QDAY [facility] Last Admin: 04/12/22 09:42 Dose: 3 mg Tamsulosin HCl (Tamsulosin 0.4 Mg Cap) 0.4 mg PO QDAY [facility] Last Admin: 04/12/22 09:41 Dose: 0.4 mg Results - Results Labs/Vitals: Laboratory Last Values WBC 8.6 K/mm3 (4.5-11.0) 03/30/22 Unknown RBC 5.22 M/mm3 (3.65-5.03) H 03/30/22 Unknown Hgb 15.9 gm/dl (11.8-15.2) H 03/30/22 Unknown Hct 47.8 % (35.5-45.6) H 03/30/22 Unknown MCV 92 fl (84-94) 03/30/22 Unknown MCH 30 pg (28-32) 03/30/22 Unknown MCHC 33 % (32-34) 03/30/22 Unknown RDW 15.6 % (13.2-15.2) H 03/30/22 Unknown Plt Count 347 K/mm3 (140-440) 03/30/22 Unknown Lymph % (Auto) 22.6 % (13.4-35.0) 03/30/22 Unknown [place] % (Auto) 6.5 % (0.0-7.3) 03/30/22 Unknown Eos % (Auto) 1.5 % (0.0-4.3) 03/30/22 Unknown Baso % (Auto) 0.6 % (0.0-1.8) 03/30/22 Unknown Lymph # (Auto) 1.9 K/mm3 (1.2-5.4) 03/30/22 Unknown [place] # (Auto) 0.6 K/mm3 (0.0-0.8) 03/30/22 Unknown Eos # (Auto) 0.1 K/mm3 (0.0-0.4) 03/30/22 Unknown Baso # (Auto) 0.1 K/mm3 (0.0-0.1) 03/30/22 Unknown Seg Neutrophils % 68.8 % (40.0-70.0) 03/30/22 Unknown Seg Neutrophils # 5.9 K/mm3 (1.8-7.7) 03/30/22 Unknown Sodium 137 mmol/L (137-145) 03/30/22 Unknown Potassium 4.7 mmol/L (3.6-5.0) 03/30/22 Unknown Chloride 99.5 mmol/L (98-107) 03/30/22 Unknown Carbon Dioxide 23 mmol/L (22-30) 03/30/22 Unknown Anion Gap 19 mmol/L 03/30/22 Unknown BUN 20 mg/dL (9-20) 03/30/22 Unknown Creatinine 1.0 mg/dL (0.8-1.3) 03/30/22 Unknown Estimated GFR > 60 ml/min 03/30/22 Unknown BUN/Creatinine Ratio 20 % 03/30/22 Unknown Glucose 302 mg/dL (75-100) H 03/30/22 Unknown POC Glucose 169 mg/dL (70-105) H 04/12/22 19:31 Hemoglobin A1c 7.8 % (4-6) H 03/30/22 Unknown Calcium 9.6 mg/dL (8.4-10.2) 03/30/22 Unknown Total Bilirubin 0.40 mg/dL (0.1-1.2) 03/30/22 Unknown AST 18 units/L (5-40) 03/30/22 Unknown ALT 23 units/L (7-56) 03/30/22 Unknown Alkaline Phosphatase 117 units/L (35-129) 03/30/22 Unknown Total Protein 7.4 g/dL (6.3-8.2) 03/30/22 Unknown Albumin 4.5 g/dL (3.9-5) 03/30/22 Unknown Albumin/Globulin Ratio 1.6 % 03/30/22 Unknown Triglycerides 204 mg/dL (2-149) H 03/30/22 Unknown Cholesterol 143 mg/dL (50-199) 03/30/22 Unknown LDL Cholesterol Direct 83 mg/dL (50-130) 03/30/22 Unknown HDL Cholesterol 38 mg/dL (40-59) L 03/30/22 Unknown Cholesterol/HDL Ratio 3.76 % 03/30/22 Unknown TSH 1.930 mlU/mL (0.270-4.200) 03/30/22 Unknown Last Vital Signs Temp 98.1 F 04/12/22 22:00 Pulse 61 04/12/22 22:00 Resp 16 04/12/22 22:00 BP 101/59 04/12/22 22:00 Pulse Ox 96 04/12/22 22:00
[2022-04-13] MEDS: LISINOPRIL 10 MG TAB PO SCH (10:25)
[2022-04-13] MEDS: CHOLECALCIFEROL (VIT D3) 1000 UNIT (25 mcg) TAB PO SCH (10:31)
[2022-04-13] MEDS: TAMSULOSIN 0.4 MG CAP PO SCH (10:31)
[2022-04-13] MEDS: MULTIVITAMINS,THER W-MINERALS TAB PO SCH (10:32)
[2022-04-13] MEDS: PALIPERIDONE ER 3 MG TAB PO SCH (10:32)
[2022-04-13] MEDS: CYANOCOBALAMIN (VIT B-12) 1000 MCG TAB PO SCH (10:32)
[2022-04-13] MEDS: DIVALPROEX DR 500 MG TAB PO SCH ×2 (10:32→22:02)
--- NOTE | 2022-04-13 10:58 | Progress Note ---
Assessment and Plan - Patient Problems (1) Vascular dementia with behavioral disturbance Current Visit: Yes Status: Acute Plan to address problem: Verbal for prompting verbal redirection, benzodiazepine therapy as clinically indicated (2) Cerebral atherosclerosis Current Visit: Yes Status: Acute Plan to address problem: Risk factor reduction, antiplatelet therapy as clinically indicated (3) Hypertension Current Visit: Yes Status: Acute Qualifiers: Hypertension type: primary hypertension Qualified Code(s): I10 - Essential (primary) hypertension Plan to address problem: Monitor blood pressure every shift, continue medical management (4) Diabetes Current Visit: Yes Status: Acute Plan to address problem: Consistent carbohydrate diet, Accu-Chek, insulin protocol, hypoglycemia protocol. (5) BPH (benign prostatic hyperplasia) Current Visit: Yes Status: Acute Plan to address problem: Continue medical management, supportive care. Outpatient urology follow-up. (6) Asthma Current Visit: Yes Status: Acute Qualifiers: Asthma severity: mild Asthma persistence: intermittent Plan to address problem: Bronchodilator therapy as clinically indicated, supportive care. (7) PTSD (post-traumatic stress disorder) Current Visit: Yes Status: Acute Plan to address problem: Continue medical management, supportive care. (8) Schizophrenia Current Visit: Yes Status: Acute Plan to address problem: Continue medical management, supportive care. (9) Bipolar disorder Current Visit: Yes Status: Acute Plan to address problem: Cognitive behavioral therapy, continue medical management, supportive care. (10) Preventative health care Current Visit: Yes Status: Acute Plan to address problem: Patient counseled regarding risk factor reduction, increase physical activity discharge, +30 minutes. (11) Advance care planning Current Visit: Yes Status: Acute Plan to address problem: Disease education conducted, care plan discussed, diagnoses discussed, prognosis discussed. Patient acknowledges understanding and agreement with care plan, +30 minutes. History Interval history: 72 YO Male with Vascular Dementia with Behavioral Disturbance, Cerebral Atherosclerosis, Bipolar Disorder, HTN, DM, BPH, Mild Intermittent Asthma, Schizophrenia, PTSD admitted to [facility] for psychiatric stabilization. Consult placed by Dr. Ramsey for medical management. Pt seen and evaluated in the recreation room. Patient appears to be at baseline level of cognition and function. Hospitalist Physical - Constitutional Vitals: Temp Pulse Resp BP Pulse Ox 98.1 F 61 16 101/59 96 04/12/22 22:00 04/13/22 10:25 04/12/22 22:00 04/13/22 10:25 04/12/22 22:00 General appearance: Present: mild distress, well-nourished, obese, other (Agitated) - EENT Eyes: Present: PERRL ENT: hearing decreased - Neck Neck: Present: supple - Respiratory Respiratory effort: normal Respiratory: bilateral: CTA - Cardiovascular Rhythm: regular Heart Sounds: Present: S1 & S2 - Extremities Extremities: no ischemia Peripheral Pulses: within normal limits - Abdominal General gastrointestinal: soft, non-tender, non-distended - Integumentary Integumentary: Present: clear, dry - Psychiatric Psychiatric: cooperative - Neurologic Neurologic: CNII-XII intact Results - Labs CBC & Chem 7: 03/30/22 Unknown 03/30/22 Unknown Labs: Laboratory Last Values WBC 8.6 K/mm3 (4.5-11.0) 03/30/22 Unknown RBC 5.22 M/mm3 (3.65-5.03) H 03/30/22 Unknown Hgb 15.9 gm/dl (11.8-15.2) H 03/30/22 Unknown Hct 47.8 % (35.5-45.6) H 03/30/22 Unknown MCV 92 fl (84-94) 03/30/22 Unknown MCH 30 pg (28-32) 03/30/22 Unknown MCHC 33 % (32-34) 03/30/22 Unknown RDW 15.6 % (13.2-15.2) H 03/30/22 Unknown Plt Count 347 K/mm3 (140-440) 03/30/22 Unknown Lymph % (Auto) 22.6 % (13.4-35.0) 03/30/22 Unknown [place] % (Auto) 6.5 % (0.0-7.3) 03/30/22 Unknown Eos % (Auto) 1.5 % (0.0-4.3) 03/30/22 Unknown Baso % (Auto) 0.6 % (0.0-1.8) 03/30/22 Unknown Lymph # (Auto) 1.9 K/mm3 (1.2-5.4) 03/30/22 Unknown [place] # (Auto) 0.6 K/mm3 (0.0-0.8) 03/30/22 Unknown Eos # (Auto) 0.1 K/mm3 (0.0-0.4) 03/30/22 Unknown Baso # (Auto) 0.1 K/mm3 (0.0-0.1) 03/30/22 Unknown Seg Neutrophils % 68.8 % (40.0-70.0) 03/30/22 Unknown Seg Neutrophils # 5.9 K/mm3 (1.8-7.7) 03/30/22 Unknown Sodium 137 mmol/L (137-145) 03/30/22 Unknown Potassium 4.7 mmol/L (3.6-5.0) 03/30/22 Unknown Chloride 99.5 mmol/L (98-107) 03/30/22 Unknown Carbon Dioxide 23 mmol/L (22-30) 03/30/22 Unknown Anion Gap 19 mmol/L 03/30/22 Unknown BUN 20 mg/dL (9-20) 03/30/22 Unknown Creatinine 1.0 mg/dL (0.8-1.3) 03/30/22 Unknown Estimated GFR > 60 ml/min 03/30/22 Unknown BUN/Creatinine Ratio 20 % 03/30/22 Unknown Glucose 302 mg/dL (75-100) H 03/30/22 Unknown POC Glucose 169 mg/dL (70-105) H 04/12/22 19:31 Hemoglobin A1c 7.8 % (4-6) H 03/30/22 Unknown Calcium 9.6 mg/dL (8.4-10.2) 03/30/22 Unknown Total Bilirubin 0.40 mg/dL (0.1-1.2) 03/30/22 Unknown AST 18 units/L (5-40) 03/30/22 Unknown ALT 23 units/L (7-56) 03/30/22 Unknown Alkaline Phosphatase 117 units/L (35-129) 03/30/22 Unknown Total Protein 7.4 g/dL (6.3-8.2) 03/30/22 Unknown Albumin 4.5 g/dL (3.9-5) 03/30/22 Unknown Albumin/Globulin Ratio 1.6 % 03/30/22 Unknown Triglycerides 204 mg/dL (2-149) H 03/30/22 Unknown Cholesterol 143 mg/dL (50-199) 03/30/22 Unknown LDL Cholesterol Direct 83 mg/dL (50-130) 03/30/22 Unknown HDL Cholesterol 38 mg/dL (40-59) L 03/30/22 Unknown Cholesterol/HDL Ratio 3.76 % 03/30/22 Unknown TSH 1.930 mlU/mL (0.270-4.200) 03/30/22 Unknown Avina/IV: Voiding Method Urinal Active Medications - Current Medications Current Medications: Generic Name Dose Route Start Last Admin Trade Name Freq PRN Reason Stop Dose Admin Albuterol 2.5 mg 03/31/22 11:40 Albuterol 2.5 Mg/3 Ml Nebu IH Q4HRT PRN Shortness Of Breath Cholecalciferol 1,000 unit 03/31/22 14:00 04/13/22 10:31 Cholecalciferol (Vit D3) 1000 Unit (25 Mcg) Tab PO 1,000 unit QDAY SALIMA Administration Cyanocobalamin 500 mcg 04/01/22 10:00 04/13/22 10:32 Cyanocobalamin (Vit B-12) 1000 Mcg Tab PO 500 mcg DAILY SALIMA Administration Dextrose 50 ml 04/08/22 11:43 Dextrose 50% In Water (25gm) 50 Ml Syringe IV Q30MIN PRN Hypoglycemia Protocol Divalproex Sodium 500 mg 03/31/22 22:00 04/13/22 10:[address] 500 Mg Tab PO 500 mg BID SALIMA Administration Insulin Human Lispro 0 unit 04/08/22 16:30 04/13/22 08:00 Insulin Lispro 100 Unit/Ml SUB-Q Not Given ACHS SALIMA Protocol Lisinopril 10 mg 03/31/22 14:00 04/13/22 10:25 Lisinopril 10 Mg Tab PO Not Given DAILY SALIMA Melatonin 10 mg 03/31/22 22:00 04/12/22 22:11 Melatonin 5 Mg Tab PO 10 mg QHS SALIMA Administration Mirtazapine 15 mg 03/31/22 22:00 04/12/22 22:11 Mirtazapine 15 Mg Tab PO 15 mg QHS SALIMA Administration Multivitamins/Minerals 1 each 04/01/22 10:00 04/13/22 10:32 Multivitamins,Ther W-Minerals Tab PO 1 each QDAY SALIMA Administration Paliperidone 3 mg 04/04/22 10:00 04/13/22 10:32 Paliperidone Er 3 Mg Tab PO 3 mg QDAY SALIMA Administration Tamsulosin HCl 0.4 mg 03/31/22 14:00 04/13/22 10:31 Tamsulosin 0.4 Mg Cap PO 0.4 mg QDAY SALIMA Administration Nutrition/Malnutrition Assess - Dietary Evaluation Nutrition/Malnutrition Findings: Nutrition Notes Start: 04/06/22 16:18 Freq: Status: Active Protocol: Document 04/06/22 16:18 ZANA (Rec: 04/06/22 16:24 ZANA [id number]) Nutrition Notes Need for Assessment generated from: LOS Initial or Follow up Assessment Current Diagnosis Diabetes,Hypertension Current Diet Cardiac/Consistent Carbohydrate Labs/Tests 04/06: Glu 125 TG 204 HDL 38 Pertinent Medications 04/06: Vit D B12 MVI Other medications nutritionally unremarkable. Height 5 ft 10 in Weight 95.2 kg [place] Body Weight (kg) 75.45 BMI 30.1 Intake Prior to Admission Good Weight change and time frame No reported unintentional wt loss [employer] Weight Status Obese Subjective/Other Information RD LOS assessment. Pt chart reviewed. GI, Integumentary, Respiratory function WNL. Pt ambulating. No information regarding Pony Edger strength. Pt consuming 100% of meals during admission (x 7 days). Will continue to monitor and follow-up. Percent of energy/protein needs met: Prescribed Cardiac/Consistent Carbohydrates Diet provides for energy/protein needs (1, 977 Kcal/86 g) during LOS. Burn Absent Trauma Absent GI Symptoms None Food Allergy No Skin Integrity/Comment WNL Current % PO Good (75-100%) Minimum of two criteria No Fluid Accumulation N/A Reduced Pony Edger Strength N/A (non-severe) Protein-Calorie Malnutrition N\A #1 Nutrition Diagnosis No nutrition diagnosis at this time Is patient on ventilator? No Is Patient Ambulatory and/or Out of Bed Yes REE-([place]-St. Jeor-ambulatory/OOB) [ 2207.725 [id number]] Calculation Used for Recommendations [place]-St Jeor Additional Notes 1.0-1.2g/kg ABW 95-114g PRO q day Fluid requirements: 30mL/kg ABW 2856mL q day Nutrition Intervention Change Diet Order: Continue cardiac/consistent carbohydrate diet as tolerable . Goal #1 Pt to consume >75% of estimated energy needs during LOS. Follow-Up By: 04/13/22 Additional Comments Monitor PO intake, diet tolerance, and BM.
[2022-04-13] MEDS: MELATONIN 5 MG TAB PO SCH (22:02)
[2022-04-13] MEDS: MIRTAZAPINE 15 MG TAB PO SCH (22:02)
[2022-04-14] MEDS: INSULIN LISPRO 100 UNIT/ML SUB-Q SCH ×5 (08:00→23:08)
--- NOTE | 2022-04-14 09:27 | Progress Note ---
Subjective Date of service: 04/14/22 Principal diagnosis: Bipolar Disorder Subjective Comment: The patient was seen today. He is lying down, but awake. He says he feels fine. The patient denies SI/HI or hallucinations. He is awaiting placement. REVIEW OF SYSTEMS Constitutional: Negative for weight loss ENT: Negative for stridor Respiratory: Negative for cough or hemoptysis All other systems reviewed and are negative MENTAL STATUS EXAMINATION General Appearance and Behavior: Age appropriate, wearing appropriate clothes, cooperative, polite with questioning, good eye contact Cooperation: cooperative Psychomotor Behavior: Psychomotor normal Mood: okay Affect and affective range: congruent with stated affect Thought Process: goal directed Thought Content: None Speech: Normal volume, Regular rate and rhythm Suicidal Ideation: Denies Homicidal Ideation: Denies Hallucination: Denies Delusions: None elicited Impulse Control: Limited Insight and Judgment: Limited Memory: Intact Attention: attentive Orientation: Alert and oriented Diagnoses: Bipolar Disorder Treatment Plan Patient admitted for inpatient psychiatric evaluation, medication adjustment and close monitoring The patient's behavior, mood, sleep and appetite will be closely monitored. Patient enrolled in individual and group therapeutic sessions and encouraged to attend. Patient provided with a safe and structured environment. Patient's physical health needs will be addressed by the Hospitalist. Hospitalist Consulted Labs including CBC, CMP, Lipid profile and Hemoglobin A1C levels ordered for baseline reference Social Assessment will be completed and the L[employer] Clerk will work with patient and family to ensure a suitable and safe disposition Medication adjustment will be made as clinically indicated Continue current regimen Usual Wellness [facility]/Preservation The patient agreed on the treatment plan, understood the risk, benefit, alternative treatment, potential consequence of no treatment, and gave informed consent. Estimated days: 7 Post hospital care: primary care provider, psychiatric provider Case staffed with Dr. Butler Medications and Allergies Allergies Allergy/AdvReac Type Severity Reaction Status Date / Time No Known Allergies Allergy Unverified 03/30/22 13:15 Home Medications Medication Instructions Recorded Confirmed Last Taken Type Cholecalciferol Vit D3 [Vitamin D3 1,000 unit PO QDAY 03/30/22 03/30/22 Unknown History 1,000 UNIT TAB] Cyanocobalamin [Vitamin B-12] 500 mcg PO DAILY 03/30/22 03/30/22 Unknown History Dapagliflozin Propanediol [Farxiga] 5 mg PO DAILY 03/30/22 03/30/22 Unknown History Divalproex Sodium [Depakote] 500 mg PO BID 03/30/22 03/30/22 Unknown History Melatonin [Melatonin 10MG TAB] 10 mg PO QHS 03/30/22 03/30/22 Unknown History Mirtazapine [Remeron 15mg TAB] 15 mg PO QHS 03/30/22 03/30/22 Unknown History Multivit-Min/Iron Fum/Folic AC 1 each PO DAILY 03/30/22 03/30/22 Unknown History [Yflon-Iedjkzp-Omwesaqq Tablet] Paliperidone Palmitate [Invega 156 mg IM QMONTH 03/30/22 03/30/22 Unknown His tory Sustenna] Paliperidone [Invega] 6 mg PO DAILY 03/30/22 03/30/22 Unknown History ProAir HFA Inhaler 90 mcg INHALATION Q8HR PRN 03/30/22 03/30/22 Unknown History Tamsulosin [Flomax] 0.4 mg PO QDAY 03/30/22 03/30/22 Unknown History lisinopriL [Lisinopril] 10 mg PO DAILY 03/30/22 03/30/22 Unknown History Active Meds: Active Medications Albuterol (Albuterol 2.5 Mg/3 Ml Nebu) 2.5 mg IH Q4HRT PRN PRN Reason: Shortness Of Breath Cholecalciferol (Cholecalciferol (Vit D3) 1000 Unit (25 Mcg) Tab) 1,000 unit PO QDAY [facility] Last Admin: 04/13/22 10:31 Dose: 1,000 unit Cyanocobalamin (Cyanocobalamin (Vit B-12) 1000 Mcg Tab) 500 mcg PO DAILY [facility] Last Admin: 04/13/22 10:32 Dose: 500 mcg Dextrose (Dextrose 50% In Water (25gm) 50 Ml Syringe) 50 ml IV Q30MIN PRN; Protocol PRN Reason: Hypoglycemia Divalproex Sodium (Divalproex Dr 500 Mg Tab) 500 mg PO BID [facility] Last Admin: 04/13/22 22:02 Dose: 500 mg Insulin Human Lispro (Insulin Lispro 100 Unit/Ml) 0 unit SUB-Q ACHS [facility]; Protocol Last Admin: 04/13/22 22:02 Dose: 1 unit Lisinopril (Lisinopril 10 Mg Tab) 10 mg PO DAILY [facility] Last Admin: 04/13/22 10:25 Dose: Not Given Melatonin (Melatonin 5 Mg Tab) 10 mg PO QHS [facility] Last Admin: 04/13/22 22:02 Dose: 10 mg Mirtazapine (Mirtazapine 15 Mg Tab) 15 mg PO QHS [facility] Last Admin: 04/13/22 22:02 Dose: 15 mg Multivitamins/Minerals (Multivitamins,Ther W-Minerals Tab) 1 each PO QDAY [facility] Last Admin: 04/13/22 10:32 Dose: 1 each Paliperidone (Paliperidone Er 3 Mg Tab) 3 mg PO QDAY [facility] Last Admin: 04/13/22 10:32 Dose: 3 mg Tamsulosin HCl (Tamsulosin 0.4 Mg Cap) 0.4 mg PO QDAY [facility] Last Admin: 04/13/22 10:31 Dose: 0.4 mg Results - Results Labs/Vitals: Laboratory Last Values WBC 8.6 K/mm3 (4.5-11.0) 03/30/22 Unknown RBC 5.22 M/mm3 (3.65-5.03) H 03/30/22 Unknown Hgb 15.9 gm/dl (11.8-15.2) H 03/30/22 Unknown Hct 47.8 % (35.5-45.6) H 03/30/22 Unknown MCV 92 fl (84-94) 03/30/22 Unknown MCH 30 pg (28-32) 03/30/22 Unknown MCHC 33 % (32-34) 03/30/22 Unknown RDW 15.6 % (13.2-15.2) H 03/30/22 Unknown Plt Count 347 K/mm3 (140-440) 03/30/22 Unknown Lymph % (Auto) 22.6 % (13.4-35.0) 03/30/22 Unknown White % (Auto) 6.5 % (0.0-7.3) 03/30/22 Unknown Eos % (Auto) 1.5 % (0.0-4.3) 03/30/22 Unknown Baso % (Auto) 0.6 % (0.0-1.8) 03/30/22 Unknown Lymph # (Auto) 1.9 K/mm3 (1.2-5.4) 03/30/22 Unknown White # (Auto) 0.6 K/mm3 (0.0-0.8) 03/30/22 Unknown Eos # (Auto) 0.1 K/mm3 (0.0-0.4) 03/30/22 Unknown Baso # (Auto) 0.1 K/mm3 (0.0-0.1) 03/30/22 Unknown Seg Neutrophils % 68.8 % (40.0-70.0) 03/30/22 Unknown Seg Neutrophils # 5.9 K/mm3 (1.8-7.7) 03/30/22 Unknown Sodium 137 mmol/L (137-145) 03/30/22 Unknown Potassium 4.7 mmol/L (3.6-5.0) 03/30/22 Unknown Chloride 99.5 mmol/L (98-107) 03/30/22 Unknown Carbon Dioxide 23 mmol/L (22-30) 03/30/22 Unknown Anion Gap 19 mmol/L 03/30/22 Unknown BUN 20 mg/dL (9-20) 03/30/22 Unknown Creatinine 1.0 mg/dL (0.8-1.3) 03/30/22 Unknown Estimated GFR > 60 ml/min 03/30/22 Unknown BUN/Creatinine Ratio 20 % 03/30/22 Unknown Glucose 302 mg/dL (75-100) H 03/30/22 Unknown POC Glucose 180 mg/dL (70-105) H 04/13/22 20:22 Hemoglobin A1c 7.8 % (4-6) H 03/30/22 Unknown Calcium 9.6 mg/dL (8.4-10.2) 03/30/22 Unknown Total Bilirubin 0.40 mg/dL (0.1-1.2) 03/30/22 Unknown AST 18 units/L (5-40) 03/30/22 Unknown ALT 23 units/L (7-56) 03/30/22 Unknown Alkaline Phosphatase 117 units/L (35-129) 03/30/22 Unknown Total Protein 7.4 g/dL (6.3-8.2) 03/30/22 Unknown Albumin 4.5 g/dL (3.9-5) 03/30/22 Unknown Albumin/Globulin Ratio 1.6 % 03/30/22 Unknown Triglycerides 204 mg/dL (2-149) H 03/30/22 Unknown Cholesterol 143 mg/dL (50-199) 03/30/22 Unknown LDL Cholesterol Direct 83 mg/dL (50-130) 03/30/22 Unknown HDL Cholesterol 38 mg/dL (40-59) L 03/30/22 Unknown Cholesterol/HDL Ratio 3.76 % 03/30/22 Unknown TSH 1.930 mlU/mL (0.270-4.200) 03/30/22 Unknown Last Vital Signs Temp 98.1 F 04/12/22 22:00 Pulse 61 04/13/22 10:25 Resp 16 04/12/22 22:00 BP 101/59 04/13/22 10:25 Pulse Ox 96 04/12/22 22:00
[2022-04-14] MEDS: MULTIVITAMINS,THER W-MINERALS TAB PO SCH (10:46)
[2022-04-14] MEDS: CYANOCOBALAMIN (VIT B-12) 1000 MCG TAB PO SCH (10:46)
[2022-04-14] MEDS: CHOLECALCIFEROL (VIT D3) 1000 UNIT (25 mcg) TAB PO SCH (10:47)
[2022-04-14] MEDS: TAMSULOSIN 0.4 MG CAP PO SCH (10:48)
[2022-04-14] MEDS: DIVALPROEX DR 500 MG TAB PO SCH ×2 (10:48→22:01)
[2022-04-14] MEDS: LISINOPRIL 10 MG TAB PO SCH (10:48)
[2022-04-14] MEDS: PALIPERIDONE ER 3 MG TAB PO SCH (10:50)
[2022-04-14] MEDS: MELATONIN 5 MG TAB PO SCH (22:01)
[2022-04-14] MEDS: MIRTAZAPINE 15 MG TAB PO SCH (22:02)
[2022-04-15] MEDS: INSULIN LISPRO 100 UNIT/ML SUB-Q SCH ×4 (08:00→22:12)
[2022-04-15] MEDS: CYANOCOBALAMIN (VIT B-12) 1000 MCG TAB PO SCH (11:14)
[2022-04-15] MEDS: MULTIVITAMINS,THER W-MINERALS TAB PO SCH (11:15)
[2022-04-15] MEDS: DIVALPROEX DR 500 MG TAB PO SCH ×2 (11:15→22:11)
[2022-04-15] MEDS: CHOLECALCIFEROL (VIT D3) 1000 UNIT (25 mcg) TAB PO SCH (11:15)
[2022-04-15] MEDS: TAMSULOSIN 0.4 MG CAP PO SCH (11:15)
[2022-04-15] MEDS: PALIPERIDONE ER 3 MG TAB PO SCH (11:16)
[2022-04-15] MEDS: LISINOPRIL 10 MG TAB PO SCH (11:37)
--- NOTE | 2022-04-15 12:01 | Progress Note ---
Subjective Date of service: 04/15/22 Principal diagnosis: Bipolar Disorder Subjective Comment: The patient was seen today. He is calm and cooperative. He denies SI/HI or hallucinations of any kind. He is awaiting placement. REVIEW OF SYSTEMS Constitutional: Negative for weight loss ENT: Negative for stridor Respiratory: Negative for cough or hemoptysis All other systems reviewed and are negative MENTAL STATUS EXAMINATION General Appearance and Behavior: Age appropriate, wearing appropriate clothes, cooperative, polite with questioning, good eye contact Cooperation: cooperative Psychomotor Behavior: Psychomotor normal Mood: okay Affect and affective range: congruent with stated affect Thought Process: goal directed Thought Content: None Speech: Normal volume, Regular rate and rhythm Suicidal Ideation: Denies Homicidal Ideation: Denies Hallucination: Denies Delusions: None elicited Impulse Control: Limited Insight and Judgment: Limited Memory: Intact Attention: attentive Orientation: Alert and oriented Diagnoses: Bipolar Disorder Treatment Plan Patient admitted for inpatient psychiatric evaluation, medication adjustment and close monitoring The patient's behavior, mood, sleep and appetite will be closely monitored. Patient enrolled in individual and group therapeutic sessions and encouraged to attend. Patient provided with a safe and structured environment. Patient's physical health needs will be addressed by the Hospitalist. Hospitalist Consulted Labs including CBC, CMP, Lipid profile and Hemoglobin A1C levels ordered for baseline reference Social Assessment will be completed and the Commercial Relationship Manager will work with patient and family to ensure a suitable and safe disposition Medication adjustment will be made as clinically indicated Continue current regimen Usual Wellness [facility]/Preservation The patient agreed on the treatment plan, understood the risk, benefit, alternative treatment, potential consequence of no treatment, and gave informed consent. Estimated days: 7 Post hospital care: primary care provider, psychiatric provider Case staffed with Dr. Butler Medications and Allergies Allergies Allergy/AdvReac Type Severity Reaction Status Date / Time No Known Allergies Allergy Unverified 03/30/22 13:15 Home Medications Medication Instructions Recorded Confirmed Last Taken Type Cholecalciferol Vit D3 [Vitamin D3 1,000 unit PO QDAY 03/30/22 03/30/22 Unknown History 1,000 UNIT TAB] Cyanocobalamin [Vitamin B-12] 500 mcg PO DAILY 03/30/22 03/30/22 Unknown History Dapagliflozin Propanediol [Farxiga] 5 mg PO DAILY 03/30/22 03/30/22 Unknown History Divalproex Sodium [Depakote] 500 mg PO BID 03/30/22 03/30/22 Unknown History Melatonin [Melatonin 10MG TAB] 10 mg PO QHS 03/30/22 03/30/22 Unknown History Mirtazapine [Remeron 15mg TAB] 15 mg PO QHS 03/30/22 03/30/22 Unknown History Multivit-Min/Iron Fum/Folic AC 1 each PO DAILY 03/30/22 03/30/22 Unknown History [Qiwnl-Gfmvvnb-Qxzglzvw Tablet] Paliperidone Palmitate [Invega 156 mg IM QMONTH 03/30/22 03/30/22 Unknown History Sustenna] Paliperidone [Invega] 6 mg PO DAILY 03/30/22 03/30/22 Unknown History ProAir HFA Inhaler 90 mcg INHALATION Q8HR PRN 03/30/22 03/30/22 Unknown History Tamsulosin [Flomax] 0.4 mg PO QDAY 03/30/22 03/30/22 Unknown History lisinopriL [Lisinopril] 10 mg PO DAILY 03/30/22 03/30/22 Unknown History Active Meds: Active Medications Albuterol (Albuterol 2.5 Mg/3 Ml Nebu) 2.5 mg IH Q4HRT PRN PRN Reason: Shortness Of Breath Cholecalciferol (Cholecalciferol (Vit D3) 1000 Unit (25 Mcg) Tab) 1,000 unit PO QDAY [facility] Last Admin: 04/15/22 11:15 Dose: 1,000 unit Cyanocobalamin (Cyanocobalamin (Vit B-12) 1000 Mcg Tab) 500 mcg PO DAILY [facility] Last Admin: 04/15/22 11:14 Dose: 500 mcg Dextrose (Dextrose 50% In Water (25gm) 50 Ml Syringe) 50 ml IV Q30MIN PRN; Protocol PRN Reason: Hypoglycemia Divalproex Sodium (Divalproex Dr 500 Mg Tab) 500 mg PO BID [facility] Last Admin: 04/15/22 11:15 Dose: 500 mg Insulin Human Lispro (Insulin Lispro 100 Unit/Ml) 0 unit SUB-Q ACHS [facility]; Protocol Last Admin: 04/15/22 08:00 Dose: Not Given Lisinopril (Lisinopril 10 Mg Tab) 10 mg PO DAILY [facility] Last Admin: 04/15/22 11:37 Dose: 10 mg Melatonin (Melatonin 5 Mg Tab) 10 mg PO QHS [facility] Last Admin: 04/14/22 22:01 Dose: 10 mg Mirtazapine (Mirtazapine 15 Mg Tab) 15 mg PO QHS [facility] Last Admin: 04/14/22 22:02 Dose: 15 mg Multivitamins/Minerals (Multivitamins,Ther W-Minerals Tab) 1 each PO QDAY [facility] Last Admin: 04/15/22 11:15 Dose: 1 each Paliperidone (Paliperidone Er 3 Mg Tab) 3 mg PO QDAY [facility] Last Admin: 04/15/22 11:16 Dose: 3 mg Tamsulosin HCl (Tamsulosin 0.4 Mg Cap) 0.4 mg PO QDAY [facility] Last Admin: 04/15/22 11:15 Dose: 0.4 mg Results - Results Labs/Vitals: Laboratory Last Values WBC 8.6 K/mm3 (4.5-11.0) 03/30/22 Unknown RBC 5.22 M/mm3 (3.65-5.03) H 03/30/22 Unknown Hgb 15.9 gm/dl (11.8-15.2) H 03/30/22 Unknown Hct 47.8 % (35.5-45.6) H 03/30/22 Unknown MCV 92 fl (84-94) 03/30/22 Unknown MCH 30 pg (28-32) 03/30/22 Unknown MCHC 33 % (32-34) 03/30/22 Unknown RDW 15.6 % (13.2-15.2) H 03/30/22 Unknown Plt Count 347 K/mm3 (140-440) 03/30/22 Unknown Lymph % (Auto) 22.6 % (13.4-35.0) 03/30/22 Unknown [place] % (Auto) 6.5 % (0.0-7.3) 03/30/22 Unknown Eos % (Auto) 1.5 % (0.0-4.3) 03/30/22 Unknown Baso % (Auto) 0.6 % (0.0-1.8) 03/30/22 Unknown Lymph # (Auto) 1.9 K/mm3 (1.2-5.4) 03/30/22 Unknown [place] # (Auto) 0.6 K/mm3 (0.0-0.8) 03/30/22 Unknown Eos # (Auto) 0.1 K/mm3 (0.0-0.4) 03/30/22 Unknown Baso # (Auto) 0.1 K/mm3 (0.0-0.1) 03/30/22 Unknown Seg Neutrophils % 68.8 % (40.0-70.0) 03/30/22 Unknown Seg Neutrophils # 5.9 K/mm3 (1.8-7.7) 03/30/22 Unknown Sodium 137 mmol/L (137-145) 03/30/22 Unknown Potassium 4.7 mmol/L (3.6-5.0) 03/30/22 Unknown Chloride 99.5 mmol/L (98-107) 03/30/22 Unknown Carbon Dioxide 23 mmol/L (22-30) 03/30/22 Unknown Anion Gap 19 mmol/L 03/30/22 Unknown BUN 20 mg/dL (9-20) 03/30/22 Unknown Creatinine 1.0 mg/dL (0.8-1.3) 03/30/22 Unknown Estimated GFR > 60 ml/min 03/30/22 Unknown BUN/Creatinine Ratio 20 % 03/30/22 Unknown Glucose 302 mg/dL (75-100) H 03/30/22 Unknown POC Glucose 108 mg/dL (70-105) H 04/15/22 06:15 Hemoglobin A1c 7.8 % (4-6) H 03/30/22 Unknown Calcium 9.6 mg/dL (8.4-10.2) 03/30/22 Unknown Total Bilirubin 0.40 mg/dL (0.1-1.2) 03/30/22 Unknown AST 18 units/L (5-40) 03/30/22 Unknown ALT 23 units/L (7-56) 03/30/22 Unknown Alkaline Phosphatase 117 units/L (35-129) 03/30/22 Unknown Total Protein 7.4 g/dL (6.3-8.2) 03/30/22 Unknown Albumin 4.5 g/dL (3.9-5) 03/30/22 Unknown Albumin/Globulin Ratio 1.6 % 03/30/22 Unknown Triglycerides 204 mg/dL (2-149) H 03/30/22 Unknown Cholesterol 143 mg/dL (50-199) 03/30/22 Unknown LDL Cholesterol Direct 83 mg/dL (50-130) 03/30/22 Unknown HDL Cholesterol 38 mg/dL (40-59) L 03/30/22 Unknown Cholesterol/HDL Ratio 3.76 % 03/30/22 Unknown TSH 1.930 mlU/mL (0.270-4.200) 03/30/22 Unknown Last Vital Signs Temp 97.7 F 04/15/22 06:57 Pulse 70 04/15/22 11:37 Resp 18 04/15/22 06:57 BP 139/80 04/15/22 11:37 Pulse Ox 95 04/14/22 19:09
[2022-04-15] MEDS: MIRTAZAPINE 15 MG TAB PO SCH (22:11)
[2022-04-15] MEDS: MELATONIN 5 MG TAB PO SCH (22:12)
--- NOTE | 2022-04-16 07:34 | Discharge Summary ---
Providers - Providers Date of Admission: 03/30/22 18:40 Date of discharge: 04/16/22 Attending physician: JUDI BURTON MD 03/30/22 18:10 Consult to Physician [CONS] Routine Comment: Consulting Provider: JANUARY GUAJARDO Physician Instructions: Reason For Exam: manage medical conditions Primary care physician: CASING FLUID TENDER Hospitalization Disposition: 30 STILL A PATIENT Allergies/Adverse Reactions: Allergies No Known Allergies Allergy (Unverified 03/30/22 13:15) Vital Signs: Last Vital Signs Temp 97.5 F L 04/15/22 18:30 Pulse 66 04/15/22 18:30 Resp 16 04/15/22 18:30 BP 105/64 04/15/22 18:30 Pulse Ox 98 04/15/22 18:30 Last Lab: Laboratory Last Values WBC 8.6 K/mm3 (4.5-11.0) 03/30/22 Unknown RBC 5.22 M/mm3 (3.65-5.03) H 03/30/22 Unknown Hgb 15.9 gm/dl (11.8-15.2) H 03/30/22 Unknown Hct 47.8 % (35.5-45.6) H 03/30/22 Unknown MCV 92 fl (84-94) 03/30/22 Unknown MCH 30 pg (28-32) 03/30/22 Unknown MCHC 33 % (32-34) 03/30/22 Unknown RDW 15.6 % (13.2-15.2) H 03/30/22 Unknown Plt Count 347 K/mm3 (140-440) 03/30/22 Unknown Lymph % (Auto) 22.6 % (13.4-35.0) 03/30/22 Unknown [place] % (Auto) 6.5 % (0.0-7.3) 03/30/22 Unknown Eos % (Auto) 1.5 % (0.0-4.3) 03/30/22 Unknown Baso % (Auto) 0.6 % (0.0-1.8) 03/30/22 Unknown Lymph # (Auto) 1.9 K/mm3 (1.2-5.4) 03/30/22 Unknown [place] # (Auto) 0.6 K/mm3 (0.0-0.8) 03/30/22 Unknown Eos # (Auto) 0.1 K/mm3 (0.0-0.4) 03/30/22 Unknown Baso # (Auto) 0.1 K/mm3 (0.0-0.1) 03/30/22 Unknown Seg Neutrophils % 68.8 % (40.0-70.0) 03/30/22 Unknown Seg Neutrophils # 5.9 K/mm3 (1.8-7.7) 03/30/22 Unknown Sodium 137 mmol/L (137-145) 03/30/22 Unknown Potassium 4.7 mmol/L (3.6-5.0) 03/30/22 Unknown Chloride 99.5 mmol/L (98-107) 03/30/22 Unknown Carbon Dioxide 23 mmol/L (22-30) 03/30/22 Unknown Anion Gap 19 mmol/L 03/30/22 Unknown BUN 20 mg/dL (9-20) 03/30/22 Unknown Creatinine 1.0 mg/dL (0.8-1.3) 03/30/22 Unknown Estimated GFR > 60 ml/min 03/30/22 Unknown BUN/Creatinine Ratio 20 % 03/30/22 Unknown Glucose 302 mg/dL (75-100) H 03/30/22 Unknown POC Glucose 229 mg/dL (70-105) H 04/15/22 19:27 Hemoglobin A1c 7.8 % (4-6) H 03/30/22 Unknown Calcium 9.6 mg/dL (8.4-10.2) 03/30/22 Unknown Total Bilirubin 0.40 mg/dL (0.1-1.2) 03/30/22 Unknown AST 18 units/L (5-40) 03/30/22 Unknown ALT 23 units/L (7-56) 03/30/22 Unknown Alkaline Phosphatase 117 units/L (35-129) 03/30/22 Unknown Total Protein 7.4 g/dL (6.3-8.2) 03/30/22 Unknown Albumin 4.5 g/dL (3.9-5) 03/30/22 Unknown Albumin/Globulin Ratio 1.6 % 03/30/22 Unknown Triglycerides 204 mg/dL (2-149) H 03/30/22 Unknown Cholesterol 143 mg/dL (50-199) 03/30/22 Unknown LDL Cholesterol Direct 83 mg/dL (50-130) 03/30/22 Unknown HDL Cholesterol 38 mg/dL (40-59) L 03/30/22 Unknown Cholesterol/HDL Ratio 3.76 % 03/30/22 Unknown TSH 1.930 mlU/mL (0.270-4.200) 03/30/22 Unknown Core Measure Documentation - Palliative Care Palliative Care/ Comfort Measures: Not Applicable - Core Measures Any of the following diagnoses?: none Exam - Constitutional Vitals: Temp Pulse Resp BP Pulse Ox 97.5 F L 66 16 105/64 98 04/15/22 18:30 04/15/22 18:30 04/15/22 18:30 04/15/22 18:30 04/15/22 18:30 Plan Care Plan Goals: Maintain good and stable mental health Plan of Treatment: The patient should be compliant with medications, not to use drugs, and not to drink alcohol. The patient understands that if suicidal ideas, homicidal ideas or any endangering feeling arise, the patient should seek assistance including, but not limited to crisis hotline, and emergency room. Assessment: Bipolar Disorder Follow up with: PRIMARY CARE, [Primary Care Provider] - 7 Days Prescriptions: Melatonin [Melatonin 10MG TAB] 10 mg PO QHS #30 Mirtazapine [Remeron 15mg TAB] 15 mg PO QHS #30 Paliperidone [Invega] 3 mg PO QDAY #30 tablet
[2022-04-16 07:43] VITALS: BP 101/67
== END 2022-04-16 07:35 | disposition home or self-care (01) | DRG 885 ==
LOC: UNDOADMIN 12:46 → 3A 12:46 → 5A 18:40
PROVIDERS: ADMIT Psychiatry & Neurology Psychiatry; ATTEND Psychiatry & Neurology Psychiatry
DX: F31.9 Bipolar disorder, unspecified (principal); F01.51 Vascular dementia, unspecified severity, with behavioral disturbance; J45.21 Mild intermittent asthma with (acute) exacerbation; F20.9 Schizophrenia, unspecified; F43.11 Post-traumatic stress disorder, acute; I10 Essential (primary) hypertension; E11.9 Type 2 diabetes mellitus without complications; N40.0 Benign prostatic hyperplasia without lower urinary tract symptoms; J45.20 Mild intermittent asthma, uncomplicated; F43.10 Post-traumatic stress disorder, unspecified; I67.2 Cerebral atherosclerosis; Z83.3 Family history of diabetes mellitus; Z79.899 Other long term (current) drug therapy; Z82.49 Family history of ischemic heart disease and other diseases of the circulatory system
CPT/HCPCS: 36415; 80053; 80061; 82962; 83036; 84443; 85025; G0378; Q9967; J1815